=== PATIENT | male | born 1985 | race Caucasian/White ===

== ENCOUNTER 2019-07-06 08:41 | Inpatient (IN) | payer MEDICAID ==
[~2019-07-06] VITALS: Ht 170.2 cm; Wt 98.3 kg
[2019-07-06] VITALS (7 sets, daily range): BP systolic 114–136; BP diastolic 72–84; BMI 35.9
--- NOTE | ~2019-07-06 | HEMODYNAMI ---
PATIENT:BROOKE KELLEY MEDICAL RECORD: [id number] : 83 LOCATION:[address] ADMISSION DATE: 07/06/19 Generatedon:07/19/20199:14 Patient name: BROOKE KELLEY Patient #: [id number] SSN: : 1985 Date of study: 07/19/2019 Page: Of Hemodynamic Procedure Report Patient Data Patient Demographics Procedure consent was obtained First Name: BROOKE Gender: Male Last Name: ALLIE : 1985 Patient #: [id number] Age: 34 year(s) Race: Unknown Additional ID: [id number] Contact details Address: [address] [place] [address] AVE State: [place] City: [place] Zip code: [address] Past Medical History Allergies: No known allergies Admission Admission Data Admission Date: 07/06/2019 Admission Time: 12:17 Room #: 2133 Procedure Procedure Types Cath Procedure Peripheral Cath Diagnostic Procedure Abscess Abscessogram Procedure Description Procedure Date Procedure Date: 07/19/2019 Procedure Start Time: 9:09 Procedure Staff Name Function Cheryl Ace MD Performing Physician Patricia Self RN Nurse Osmani Camacho RT Scrub KATHRYN CEVALLOS RT Monitor Procedure Data Cath Procedure Fluoroscopy Diagnostic fluoroscopy Total fluoroscopy Time: time: 0.08 min 0.08 min Contrast Material Contrast Material Type Amount (ml) Isovue 300 8 Hemodynamics Rest Pre Cath Intra NCS Post Cath Procedure Log Time Note 8:47:11 Osmani Camacho RT (R) (CV) sent for patient. Start room use. 8:47:12 Time tracking: Regular hours (M-F 7:00 - 5:00) 8:47:18 Patient received from Med II to IR Alert and oriented. Tansferred to table in Supine position. 8:47:19 Signed procedure consent form obtained from patient. 8:47:20 Warm blankets applied, and yenny hugger turned on for patient comfort. 8:47:21 Correct patient and procedure confirmed by team. 8:49:06 8:49:14 H&P Date Dictated: 07/19/2019 Within 30 days and on chart.. 8:49:16 Pre-procedure instructions explained to patient. 8:49:16 Pre-op teaching completed and patient verbalized understanding. 8:49:27 Patient allergic to No known allergies 8:49:29 Is the patient allergic to Iodine/contrast media? No. 8:50:08 Patient diabetic? No. 8:50:10 8:52:19 Left abdomen area was prepped with chlora-prep and draped in sterile fashion 9:04:51 Physician arrived 9:07:55 --------ALL STOP TIME OUT------ 9:08:03 Left abdomen site verified by team. 9:08:19 Use device set IR Diagnostic 9:08:21 Bag Decanter (2002S) opened to sterile field. 9:08:21 Sterile Angiographic Pack opened to sterile field. 9:08:22 Tegaderm 4 x 4 ([id number]) opened to sterile field. 9:09:24 Procedure started. 9:09:25 Full Disclosure recording started 9:12:58 Procedure ended.(Physican Out) 9:13:07 Fluoroscopy time 00.08 minutes. 9:13:11 Dose Area Product 26 mGy/cm. 9:13:15 Contrast amount:Isovue 300 8ml. 9:13:28 Post-op/insertion site Left Abdominal area dressed using a statlock, 4 x 4 and Tegaderm. 9:13:44 Post procedure instruction explained to patient.Patient verbalizes understanding. 9:13:46 Procedure and supply charges have been captured, reviewed, submitted and are correct. 9:14:19 Patient transfered to [facility] II with Bed. 9:14:22 End room use (Document Last) Device Usage Item Name Manufacture Quantity Catalog Hospital Part Current Minimal Lot# / Number Charge Number Stock Stock Serial# Code Bag Decanter Microtek 1 [id number] () [employer] Sterile Cardinal 1 [id number] Angiographic Health Pack Tegaderm 4 x 3M 1 [id number] 4 ([id number]) Signature Audit [place] Stage Time Signature Unsigned Intra-Procedure 07/19/2019 KATHRNY CEVALLOS RT 9:14:38 AM (R) [facility] [address] [place] [address]
[2019-07-06 09:24] LABS: CALC OSMOLALITY 264 mosm/kg (275-300); CALCIUM 9.5 mg/dL (8.5-10.1); CARBON DIOXIDE 24.8 mmol/L (21.0-32.0); CHLORIDE - SERUM 99 mmol/L (98-107); CREATININE - SERUM 1.1 mg/dL (0.6-1.3); GLUCOSE 99 mg/dL (74-106); POTASSIUM - SERUM 4.3 mmol/L (3.5-5.1); SODIUM 133 mmol/L (136-145); UREA NITROGEN 11 mg/dL (7-18); eGFR NON AFRICAN AMERICAN 81 mL/min (90-120)
[2019-07-06 09:33] LABS: ALBUMIN 3.6 g/dL (3.4-5.0); ALKALINE PHOSPHATASE 71 U/L (46-116); ALT (SGPT) 29 U/L (10-68); AMYLASE - SERUM 26 U/L (25-115); BILIRUBIN - TOTAL 0.76 mg/dL (0.2-1.3); LIPASE 84 U/L (73-393); PROTEIN - SERUM 8.3 g/dL (6.4-8.2)
[2019-07-06 09:34] LABS: TROPONIN-I < 0.017 ng/mL (0.000-0.060)
[2019-07-06 09:35] LABS: BASOPHILS 0.2 % (0-2); EOSINOPHILS 2.8 % (0-7); HEMATOCRIT 46.2 % (42.0-54.0); HEMOGLOBIN 15.8 g/dL (13.5-17.5); IMMATURE GRANULOCYTES 0.3 % (0-5); LYMPHOCYTES 9.6 % (15-50); MCH 30.9 pg (26.0-34.0); MCHC 34.2 g/dL (31.0-37.0); MCV 90.4 fL (80.0-100.0); MEAN PLATELET VOLUME 9.3 fL (7.4-10.4); MONOCYTES 7.4 % (2-11); NEUTROPHILS 79.7 % (40-80); PLATELET COUNT 279 10x3/uL (130-400); RBC 5.11 10x6/uL (4.20-6.10); RDW 12.3 % (11.5-14.5); WBC 18.1 10x3/uL (4.8-10.8)
[2019-07-06 09:57] LABS: APPEARANCE CLEAR (CLEAR); BILIRUBIN NEGATIVE (NEGATIVE); COLOR DK YELLOW (YELLOW); GLUCOSE NEGATIVE (NEGATIVE); KETONE LARGE mg/dL (NEGATIVE); NITRITE NEGATIVE (NEGATIVE); PROTEIN 1+ mg/dL (NEGATIVE); RED CELLS - URINE OCC /hpf (0-5); SPECIFIC GRAVITY 1.025 (1.005-1.020); UROBILINOGEN NORMAL (NORMAL); WHITE CELLS - URINE RARE /hpf (NEGATIVE)
[2019-07-06 09:58] LABS: BACTERIA FEW /hpf (NEGATIVE); EPITHELIAL CELLS OCC /hpf (0-5); MUCUS >1+ /lpf (NONE SEEN)
--- NOTE | 2019-07-06 11:09 | NUR ---
TO CT VIA STRETCHER WITH CANTEEN OPERATOR
--- NOTE | 2019-07-06 13:52 | NUR ---
FLAGYL INFUSION COMPLETE AT THIS TIME, LEVAQUIN INFUSING ON TRANSFER.
--- NOTE | 2019-07-06 14:00 | NUR ---
ARRIVE TO ROOM VIA WHEELCHAIR FROM ER ACCOMPANIED BY STAFF AND SPOUSE. AMBULATES TO BED. RT AC IV INFUSING ORDERED. SKIN POOR HYGIENE. REFUSE SHOWER. CONTINUE PLAN OF CARE AND SAFETY PRECAUTIONS. CONTINUE ADMISSION PROCESS.
--- NOTE | 2019-07-06 15:56 | MORECARE ---
CASE MANAGEMENT DISCHARGE SUMMARY PATIENT: BROOKE KELLEY UNIT: [id number] ADM DATE: 07/06/19 AGE: 34 : 84 SEX: M ROOM/BED: D.7993 AUTHOR: FELIPEDOC PHYSICIAN: REFERRING PHYSICIAN: ERICKA MARTIN MD DATE OF SERVICE: 07/06/19 Discharge Plan Patient Name: BROOKE KELLEY Facility: [facility]:[place] : 1985 Planned Disposition: Home Anticipated Discharge Date: 07/08/19 Discharge Date: Expected LOS: 2 Initial Reviewer: [email or web address] Initial Review Date: 07/06/2019 Generated: 07/06/19 4:56 pm DCP- Discharge Planning Updated by [email or web address]: Bethanie Carroll on 07/06/19 2:[address] DC PLAN: Return home with and room-mate independently. ANTICIPATED DC NEEDS: Denied known dc needs at time of admission assessment. CM met with patient and his to complete initial dc planning assessment. CM educated patient on the CM role and verbal consent given by patient to complete assessment. CM verified patient's address, phone number, and emergency contact phone numbers. Patient lives at home with his and a roommate. He reports he is independent in his care at home. At discharge patient plans to return home independently and feels this is a safe discharge. CM discussed availability of home health, rehab services, and medical equipment. Patient denied known discharge needs at this time. Transportation provider at discharge will be his CM will continue to follow and will assist as needed with dc plans/needs. DCPIA - Discharge Planning Initial Assessment Updated by [email or web address]: Bethanie Carroll on 07/06/19 3:48 pm * Is the patient Alert and Oriented? Yes * How many steps to enter\exit or inside your home? * PCP No PCP * Pharmacy [facility] * Preadmission Environment Home with Family * ADLs Independent * Equipment None * List name and contact numbers for known caregivers / representatives who currently or will assist patient after discharge: Elyse - spouse - no phone. Elias Carroll - room mate - [phone] * Verbal permission to speak to the caregivers and representatives has been obtained from the patient. Yes * Community resources currently utilized None * Additional services required to return to the preadmission environment? No * Can the patient safely return to the preadmission environment? Yes * Has this patient been hospitalized within the prior 30 days at any hospital? No Patient Name: BROOKE KELLEY Page [id number] at 1556 All edits/amendments must be made on the electronic document DICTATION DATE: 07/06/191555 JOURNEYMAN PRESSMAN: EVERTON 07/06/191555 RPT#: [id number] DC DATE: STATUS: ADM IN [facility] [address] [place] [address] END OF REPORT
--- NOTE | 2019-07-06 19:23 | NUR ---
REPORT RECEIVED, WILL CONTINUE POC. PATIENT IS AAOX4, UP AD LOUISE. LYING SUPINE IN BED. NO S/S OF DISTRESS OBSERVED, RR EVEN AND UNLABORED ON ROOM AIR. PATIENT SAID HE ASKED FOR PAIN MEDS ABOUT AN HOUR AGO. INFORMED PATIENT THAT IF HE CAN HAVE ANYTHING I WOULD BRING IT SHORTLY. PATIENT DENIES FURTHER NEEDS AT THIS TIME. CL IN REACH, BED LOCKED AND LOWERED, WILL CTM.
[2019-07-07 00:20] VITALS: BP 103/57
--- NOTE | 2019-07-07 03:40 | NUR ---
PT C/O ABDOMINAL PAIN. PRN PERCOCET ADMINISTERED PER ORDERS.
[2019-07-07 04:47] VITALS: BP 112/61
[2019-07-07 06:53] LABS: BASOPHILS 0.2 % (0-2); EOSINOPHILS 6.1 % (0-7); HEMATOCRIT 39.7 % (42.0-54.0); HEMOGLOBIN 13.4 g/dL (13.5-17.5); IMMATURE GRANULOCYTES 0.3 % (0-5); LYMPHOCYTES 10.8 % (15-50); MCH 30.5 pg (26.0-34.0); MCHC 33.8 g/dL (31.0-37.0); MCV 90.4 fL (80.0-100.0); MEAN PLATELET VOLUME 9.4 fL (7.4-10.4); MONOCYTES 7.2 % (2-11); NEUTROPHILS 75.4 % (40-80); PLATELET COUNT 250 10x3/uL (130-400); RBC 4.39 10x6/uL (4.20-6.10); RDW 12.2 % (11.5-14.5)
[2019-07-07 07:01] LABS: WBC 11.1 10x3/uL (4.8-10.8)
[2019-07-07 07:05] LABS: CALC OSMOLALITY 267 mosm/kg (275-300); CHLORIDE - SERUM 103 mmol/L (98-107); CREATININE - SERUM 0.9 mg/dL (0.6-1.3); GLUCOSE 91 mg/dL (74-106); SODIUM 135 mmol/L (136-145); eGFR NON AFRICAN AMERICAN > 90 mL/min (90-120)
[2019-07-07 07:09] LABS: UREA NITROGEN 8 mg/dL (7-18)
--- NOTE | 2019-07-07 07:22 | NUR ---
REPORT RECEIVED. WILL CONTINUE WITH POC. PT CURRENTLY LYING ON RIGHT SIDE RESTING. CALL LIGHT W/I REACH. PT IS AAO AND UP AD LOUISE. RR EVEN AND UNLABORED ON RA. NS INFUSING @100ML/HR VIA R.AC PIV. NO S/S OF DISTRESS NOTED. PT DENIES ANY NEEDS. WILL CTM.
[2019-07-07 08:33] LABS: UDS - AMPHET NEGATIVE QUAL (NEGATIVE); UDS - BARB NEGATIVE QUAL (NEGATIVE); UDS - BENZO POSITIVE QUAL (NEGATIVE); UDS - COCAINE NEGATIVE QUAL (NEGATIVE); UDS - OPIATE POSITIVE QUAL (NEGATIVE); UDS - PCP NEGATIVE QUAL (NEGATIVE); UDS - THC POSITIVE QUAL (NEGATIVE)
[2019-07-07 09:34] VITALS: BP 123/68
[2019-07-07 12:43] VITALS: BP 119/72
[2019-07-07 14:34] VITALS: BMI 35.8
--- NOTE | 2019-07-07 14:48 | NUR ---
I have reviewed this patient and I concur with the Shift Assessment completed by the Licensed Practical Nurse today this shift.
[2019-07-07 17:16] VITALS: BP 124/78
--- NOTE | 2019-07-07 19:36 | NUR ---
REPORT RECEIVED, WILL CONTINUE POC. PATIENT IS AAOX4, LYING IN SUPINE POSITION. AT BEDSIDE. NO S/S OF DISTRESS OBSERVED, RR EVEN AND UNLABORED ON ROOM AIR. PATIENT REQUESTED TO HAVE A SHOWER LATER. PATIENT DENIES NEEDS AT THIS TIME. CL IN REACH, BED LOCKED AND LOWERED. WILL CTM.
[2019-07-07 20:00] VITALS: BP 118/76
--- NOTE | 2019-07-07 20:31 | NUR ---
STRONG CIGARETTE SMOKE SMELL COMING FROM ROOM. PATIENT IS IN THE SHOWER, TOWEL PUSHED UNDER DOOR, SITTING ON BED. INFORMED THAT PATIENT CAN'T BE SMOKING IN ROOM THAT IT'S A HAZARD SHE SAID SHE HAS NO IDEA IF HE IS OR NOT. SECURITY CALLED TO COME SPEAK WITH PATIENT.
[2019-07-08] VITALS (7 sets, daily range): BP systolic 100–124; BP diastolic 54–80
--- NOTE | 2019-07-08 02:31 | NUR ---
PATIENT GOT IV TUBING CAUGHT IN BED RAIL AND PULLED OUT PIV TO RT AC, CATH TIP INTACT. IV RESITED TO RT UPPER ARM WITH 20G X1 ATTEMPT. BLOOD RETURN GOOD, FLUSHED EASILY. PATIENT TOLERATED WELL. PATIENT C/O ABDMONIAL PAIN PRIOR TO IV RESITING. PRN PERCOCET ADMINISTERED PER ORDERS.
--- NOTE | 2019-07-08 07:08 | NUR ---
REPORT RECEIVED. WILL CONTINUE WITH POC. PT CURRENTLY LYING ON RIGHT SIDE ASLEEP. IS IN BED WITH PT. ROOM HAS STRONG ODOR OF SMOKE. RR EVEN AND UNLABORED ON RA. NS INFUSING @100ML/HR VIA R.UPPER ARM PIV. NO S/S OF DISTRESS NOTED. WILL CTM.
--- NOTE | 2019-07-08 08:41 | NUR ---
PT DEMANDING PAIN MEDICATION UPON ENTERING THE ROOM AND BEING RUDE/DEGRADING TO CLAIM TECHNICIAN. CURRENTLY IN THE ROOM REQUESTING BREAKFAST TRAY. INSTRUCTED PATIENT AND THAT I WOULD ASK PROJECT MANAGEMENT PROFESSOR. WILL CTM.
[2019-07-08 11:53] LABS: HEMATOCRIT 39.7 % (42.0-54.0); HEMOGLOBIN 13.1 g/dL (13.5-17.5); MCH 30.2 pg (26.0-34.0); MCV 91.5 fL (80.0-100.0); PLATELET COUNT 264 10x3/uL (130-400); RBC 4.34 10x6/uL (4.20-6.10); RDW 12.3 % (11.5-14.5); WBC 9.7 10x3/uL (4.8-10.8)
[2019-07-08 11:57] LABS: BASOPHILS 0.2 % (0-2); EOSINOPHILS 8.5 % (0-7); IMMATURE GRANULOCYTES 0.2 % (0-5); LYMPHOCYTES 11.9 % (15-50); MONOCYTES 8.5 % (2-11); NEUTROPHILS 70.7 % (40-80)
--- NOTE | 2019-07-08 15:49 | NUR ---
I have reviewed this patient and I concur with the Shift Assessment completed by the Licensed Practical Nurse today this shift.
--- NOTE | 2019-07-08 19:10 | NUR ---
BEDSIDE REPORT RECEIVED FROM DAY SHIFT, PT CARE ASSUMED. INTRODUCED SELF AND WROTE NAME ON BOARD. PT SITTING UP IN BED, AAOX4, REQUESTING TO PIV TO RIGHT AC RESITED, C/O TENDERNESS, FREE OF S/S OF INFILTRATION AND INFLAMMATION. C/O LOWER ABD PAIN OF 8, ON A SCALE OF 0-10. REQUESTING LINEN CHANGE, DENIES ANY OTHER NEEDS AT THIS TIME. SISTER AND AT BEDSIDE. BED IN LOWEST POSITION, SR X1, CALL LIGHT WITHIN REACH. WILL CONTINUE TO MONITOR.
[2019-07-09 04:00] VITALS: BP 124/78
--- NOTE | 2019-07-09 05:49 | NUR ---
AM MEDS GIVEN, PER ORDER. REQUESTING LEMON NUNAKAUYARMIUT SODA, ORANGE SHERBERT, AND VANILLA ICE CREAM. PT LEAVING FLOOR WITH TO SMOKE.
[2019-07-09 06:16] LABS: BASOPHILS 0.4 % (0-2); EOSINOPHILS 7.4 % (0-7); HEMATOCRIT 42.5 % (42.0-54.0); IMMATURE GRANULOCYTES 0.2 % (0-5); MCH 29.9 pg (26.0-34.0); MCHC 32.9 g/dL (31.0-37.0); MCV 90.8 fL (80.0-100.0); MEAN PLATELET VOLUME 9.2 fL (7.4-10.4); MONOCYTES 8.4 % (2-11); NEUTROPHILS 74.6 % (40-80); PLATELET COUNT 287 10x3/uL (130-400); RBC 4.68 10x6/uL (4.20-6.10); RDW 12.6 % (11.5-14.5); WBC 11.1 10x3/uL (4.8-10.8)
[2019-07-09 06:38] LABS: ALBUMIN 2.6 g/dL (3.4-5.0); ALKALINE PHOSPHATASE 61 U/L (46-116); ALT (SGPT) 15 U/L (10-68); BILIRUBIN - TOTAL 0.38 mg/dL (0.2-1.3); CALC OSMOLALITY 277 mosm/kg (275-300); CARBON DIOXIDE 24.8 mmol/L (21.0-32.0); CHLORIDE - SERUM 105 mmol/L (98-107); CREATININE - SERUM 0.9 mg/dL (0.6-1.3); GLUCOSE 122 mg/dL (74-106); POTASSIUM - SERUM 3.6 mmol/L (3.5-5.1); PROTEIN - SERUM 6.7 g/dL (6.4-8.2); SODIUM 140 mmol/L (136-145); UREA NITROGEN 6 mg/dL (7-18); eGFR NON AFRICAN AMERICAN > 90 mL/min (90-120)
[2019-07-09 09:48] VITALS: BP 126/56
--- NOTE | 2019-07-09 12:01 | NUR ---
UP AMBULATING HALLWAY. GAIT STEADY.
--- NOTE | 2019-07-09 12:50 | NUR ---
Nutrition Follow-up: Diet advanced; tolerating. Abd pain improving. Diet: Regular PO intake: 69% avg x 4 meals Wt: 229# (stable) Last BM: 07/09 Labs noted: Glu 122, Alb 2.6 Meds noted: Miralax, Carafate, NS @ 100 -Continue current diet as tolerated. -RD following.
--- NOTE | 2019-07-09 19:10 | NUR ---
BEDSIDE REPORT RECEIVED, PT CARE ASSUMED. WROTE NAME ON BOARD. PT LYING IN BED WITH EYES CLOSED, RR EVEN AND NONLABORED, NO S/S OF DISTRESS, AROUSES EASILY TO VOICE. REQUESTING SODA, PROVIDED. DENIES ANY OTHER NEEDS AT THIS TIME. BED IN LOWEST POSITION, SR X1, CALL LIGHT WITHIN REACH. WILL CONTINUE TO MONITOR.
[2019-07-09 20:00] VITALS: BP 121/77
[2019-07-10] VITALS: BP 124/75
[2019-07-10 04:00] VITALS: BP 130/84
[2019-07-10 07:04] LABS: BASOPHILS 0.2 % (0-2); EOSINOPHILS 5.8 % (0-7); HEMOGLOBIN 13.1 g/dL (13.5-17.5); IMMATURE GRANULOCYTES 0.3 % (0-5); LYMPHOCYTES 10.4 % (15-50); MCH 30.5 pg (26.0-34.0); MCHC 33.6 g/dL (31.0-37.0); MCV 90.7 fL (80.0-100.0); MEAN PLATELET VOLUME 9.4 fL (7.4-10.4); MONOCYTES 8.5 % (2-11); NEUTROPHILS 74.8 % (40-80); PLATELET COUNT 328 10x3/uL (130-400); RDW 12.5 % (11.5-14.5); WBC 13.2 10x3/uL (4.8-10.8)
[2019-07-10 07:10] LABS: ALBUMIN 2.5 g/dL (3.4-5.0); ALKALINE PHOSPHATASE 61 U/L (46-116); ALT (SGPT) 14 U/L (10-68); BILIRUBIN - TOTAL 0.31 mg/dL (0.2-1.3); CALC OSMOLALITY 275 mosm/kg (275-300); CALCIUM 8.8 mg/dL (8.5-10.1); CARBON DIOXIDE 27.3 mmol/L (21.0-32.0); CHLORIDE - SERUM 104 mmol/L (98-107); CREATININE - SERUM 0.8 mg/dL (0.6-1.3); GLUCOSE 103 mg/dL (74-106); POTASSIUM - SERUM 3.7 mmol/L (3.5-5.1); PROTEIN - SERUM 6.5 g/dL (6.4-8.2); SODIUM 139 mmol/L (136-145); UREA NITROGEN 7 mg/dL (7-18); eGFR NON AFRICAN AMERICAN > 90 mL/min (90-120)
[2019-07-10 08:50] VITALS: BP 115/74
[2019-07-10 11:59] VITALS: BP 133/86
--- NOTE | 2019-07-10 13:32 | NUR ---
ASSESSNEBT DONE . DENIES NEEDS
--- NOTE | 2019-07-10 14:16 | NUR ---
I have reviewed this patient and I concur with the Shift Assessment completed by the Licensed Practical Nurse today this shift.
[2019-07-10 14:45] VITALS: Ht 170.2 cm; Wt 98.3 kg
[2019-07-10 15:46] LABS: INR 1.27 (0.85-1.17); PROTIME 15.4 SECONDS (11.6-15.0)
[2019-07-10 15:47] LABS: APTT 42.4 SECONDS (22.8-39.4)
[2019-07-10 20:00] VITALS: BP 130/86
--- NOTE | 2019-07-10 22:33 | NUR ---
INITIAL ROUNDS COMPLETED AT 1915 HRS. PT RESTING WITH EYES CLOSED. RESP EVEN AND REGULAR. ASSESSMENT COMPLETED AT 200 HRS. IV TO RFA WITH NS AT 100CC/HR. IV PATENT. LUNGS ESSENTIALLY CTA. ABD TENDER WITH HYPOACTIVE BS NOTED. PT NPOX MEDS SITH SIPS OF WATER AND ICE CHIPS. STATES UNDERSTANDING. TEMP 101.5. TYLENOL 650MG PO GIVE A 2019 HRS. FAMILY AT BEDSIDE AT TAHT TIME. PM MEDS GIVEN. PT UP TO SHOWER AT 2130 HRS. PT CURRENTLY RESTING WITH EYES CLOSED. RESP EVEN AND REGULAR. SR UP X2, CALL LIGHT WITHIN REACH.
[2019-07-11] VITALS: BP 119/73
--- NOTE | 2019-07-11 00:50 | NUR ---
PT RESTING WITH EYES CLOSED. RESP EVEN AND REGULAR. SR UP X1, CALL LIGHT WITHIN REACH.
--- NOTE | 2019-07-11 01:30 | NUR ---
NIECY OLIVER WAS ON LUNCH, PT COMPLAINS OF PAIN, GAVE PEROCET ORDER WITH A SIP OF WATER
--- NOTE | 2019-07-11 02:31 | NUR ---
PT RESTING WITH EYES CLOSED. RESP EVEN AND REGULAR. SR UP X2, CALL LIGHT WITHIN REACH.
[2019-07-11 04:00] VITALS: BP 119/60
--- NOTE | 2019-07-11 04:24 | NUR ---
PT REQUESTING PAIN MEDS. INFORMED PT PAIN MED NOT DUE AGAIN UNTIL 0530 HRS. INFORMED PT RECEIVED PRECOCET AT O130 BY Michael CAMACHO LPN. PT THEN STATED TAHT THIS NURSE IS A LIAR HE HS NOT RECIEVED ANY PAIN MEDS SINCE BEFORE HE WENT OUTSIDE. ATTEMPTED TO SHOW PT ON SEP WHEN MED GIVEN. PT THEN STATED HE DOES NOT WANT THIS NURSE NEXT SHIFT.
--- NOTE | 2019-07-11 05:30 | NUR ---
PT APOLOGIZED FOR BEING WRONG ABOUT LAST PAIN MED ADMINISTRATION. STATES OK FOR THIS NURSE TO BE HIS NURSE NEXT SHIFT.
[2019-07-11 05:58] LABS: BASOPHILS 0.1 % (0-2); EOSINOPHILS 5.3 % (0-7); HEMATOCRIT 37.9 % (42.0-54.0); HEMOGLOBIN 12.8 g/dL (13.5-17.5); IMMATURE GRANULOCYTES 0.4 % (0-5); LYMPHOCYTES 8.2 % (15-50); MCH 30.4 pg (26.0-34.0); MCHC 33.8 g/dL (31.0-37.0); MONOCYTES 7.9 % (2-11); NEUTROPHILS 78.1 % (40-80); PLATELET COUNT 358 10x3/uL (130-400); RBC 4.21 10x6/uL (4.20-6.10); RDW 12.5 % (11.5-14.5); WBC 15.3 10x3/uL (4.8-10.8)
--- NOTE | 2019-07-11 06:02 | NUR ---
VSS THROUGHOUT NIGHT. PT STATES PERCOCET MAKES PAIN TOLERABLE. NEEDS MET; WILL CONTINUE TO MONITOR.
[2019-07-11 06:20] LABS: ALBUMIN 2.5 g/dL (3.4-5.0); ALKALINE PHOSPHATASE 59 U/L (46-116); ALT (SGPT) 16 U/L (10-68); BILIRUBIN - TOTAL 0.42 mg/dL (0.2-1.3); CALC OSMOLALITY 273 mosm/kg (275-300); CALCIUM 8.9 mg/dL (8.5-10.1); CHLORIDE - SERUM 103 mmol/L (98-107); CREATININE - SERUM 0.9 mg/dL (0.6-1.3); GLUCOSE 96 mg/dL (74-106); POTASSIUM - SERUM 3.6 mmol/L (3.5-5.1); PROTEIN - SERUM 6.6 g/dL (6.4-8.2); SODIUM 138 mmol/L (136-145); UREA NITROGEN 7 mg/dL (7-18); eGFR NON AFRICAN AMERICAN > 90 mL/min (90-120)
--- NOTE | 2019-07-11 07:00 | NUR ---
RECEIVED REPORT. ASSUMED CARE OF PATIENT. CALL LIGHT WITHIN REACH. PATIENT RESTING IN BED WITH EYES CLOSED, FEMALE IN BED WITH PATIENT ALSO WITH EYES CLOSED. RESP EVEN AND UNLABORED. NO DISTRESS. IV FLUIDS INFUSING ORDERED.
[2019-07-11 08:48] VITALS: BP 110/66
--- NOTE | 2019-07-11 09:52 | NUR ---
MEDICATED FOR PAIN AT THIS TIME. NO DISTRESS
[2019-07-11 13:08] VITALS: BP 118/45
--- NOTE | 2019-07-11 14:01 | NUR ---
PATIENT GAVE THIS MANAGER INTELLIGENCE PERMISSION TO SPEAK WITH HIS SISTER REGARDING HIS CONDITION HE DOES NOT UNDERSTAND WHAT THE PROVIDERS HAVE PLANNED FOR HIM.
--- NOTE | 2019-07-11 14:31 | NUR ---
MEDICATED FOR PAIN AT THIS TIME. NO DISTRESS
--- NOTE | 2019-07-11 15:07 | NUR ---
PATIENT RETURNED TO ROOM AT THIS TIME, PATIENT AMBULATING OFF UNIT WITH HIS . NO DISTRESS.
--- NOTE | 2019-07-11 18:34 | NUR ---
PATIENT MEDICATED FOR PAIN AT THIS TIME. NO DISTRESS.
--- NOTE | 2019-07-11 19:26 | NUR ---
RECEIVED LAYING IN BED WITH EYES CLOSED. EASILY AROUSES WITH VERBAL STIMULI. SPOUSE AT BEDSIDE. ORIENTED X4. UP AD LOUISE. IV TO RIGHT FA WITH NS AT 100CC/HR AND ABT INFUSING. REMAINS NPO. DENIES ANY NEEDS AT THIS TIME.
[2019-07-11 20:40] VITALS: BP 124/60
[2019-07-12 00:30] VITALS: BP 120/71
[2019-07-12 04:36] VITALS: BP 104/51
[2019-07-12 06:27] LABS: BASOPHILS 0.2 % (0-2); EOSINOPHILS 3.9 % (0-7); HEMATOCRIT 39.2 % (42.0-54.0); HEMOGLOBIN 12.9 g/dL (13.5-17.5); IMMATURE GRANULOCYTES 0.4 % (0-5); LYMPHOCYTES 11.9 % (15-50); MCH 29.7 pg (26.0-34.0); MCHC 32.9 g/dL (31.0-37.0); MCV 90.3 fL (80.0-100.0); MEAN PLATELET VOLUME 9.1 fL (7.4-10.4); MONOCYTES 8.5 % (2-11); NEUTROPHILS 75.1 % (40-80); PLATELET COUNT 383 10x3/uL (130-400); RBC 4.34 10x6/uL (4.20-6.10); RDW 12.5 % (11.5-14.5); WBC 14.2 10x3/uL (4.8-10.8)
[2019-07-12 06:54] LABS: ALBUMIN 2.5 g/dL (3.4-5.0); ALKALINE PHOSPHATASE 58 U/L (46-116); ALT (SGPT) 19 U/L (10-68); BILIRUBIN - TOTAL 0.38 mg/dL (0.2-1.3); CALC OSMOLALITY 277 mosm/kg (275-300); CALCIUM 8.9 mg/dL (8.5-10.1); CARBON DIOXIDE 25.7 mmol/L (21.0-32.0); CHLORIDE - SERUM 103 mmol/L (98-107); CREATININE - SERUM 0.9 mg/dL (0.6-1.3); GLUCOSE 77 mg/dL (74-106); POTASSIUM - SERUM 3.8 mmol/L (3.5-5.1); PROTEIN - SERUM 6.7 g/dL (6.4-8.2); SODIUM 141 mmol/L (136-145); UREA NITROGEN 8 mg/dL (7-18); eGFR NON AFRICAN AMERICAN > 90 mL/min (90-120)
--- NOTE | 2019-07-12 07:26 | NUR ---
REPORT RECEIVED FROM SHANK RANDER AND PATIENT CARE ASSUMED. PATIENT LAYHING IN BED ON RT SIDE WITH EYES CLOSED AND BREATHING EVENLY. IS ASLEEP IN BED WITH PATIENT. WILL CONTINUE WITH PLAN OF CARE. SR UP X 2 BED IN LOW POSITION AND CALL LIGHT IN REACH.
[2019-07-12 09:59] VITALS: BP 108/49
--- NOTE | 2019-07-12 10:00 | NUR ---
BRANDEN, RN WITH VASCULAR ACCESS INQIURING ABOUT PICC LINE PLACEMENT. SHE STATES NO ORDER IN COMPUTER AND REQUESTED THAT THIS NURSE FOUND OUT PLACEMENT NEEDED OR NOT. PER DR DENNIS NOTE FROM 07/11/19, PATIENT TO HAVE PICC LINE PLACMENT TODAY FOR ABX AND TPN. CALLED DR DENNIS AND CONFIRMED AND PUT IN V/O FOR PICC LINE PLACEMENT.
--- NOTE | 2019-07-12 12:30 | NUR ---
ATTEMPTED TO CALL BENITO OTERO . LEFT VOICE MAIL TO CONFIRM SHE AHS SEEN ORDER. AWAITING CALL BACK.
[2019-07-12 12:32] VITALS: BP 106/62
--- NOTE | 2019-07-12 12:35 | NUR ---
PATIENT IS STABLE AND VSS. PATIENT DENIES ANY NEEDS OR PAIN. WILL CONTINUE TO MONITOR. AT BS. SR UP X 2 BED IN LOW POSITION AND CALL LIGHT IN REACH.
[2019-07-12 14:14] LABS: MAGNESIUM - SERUM 1.7 mg/dL (1.8-2.4); PHOSPHOROUS 4.2 mg/dL (2.5-4.9)
--- NOTE | 2019-07-12 14:28 | NUR ---
Nutrition consult: Recieved consult to start TPN Chart reviewed TPN ordered @ 40 ml/hr with 20% 250 ml intralipids q 48 hours RDN following.
--- NOTE | 2019-07-12 14:48 | NUR ---
PICC LINE PLACED TO LEFT UPPER ARM. PATIENT TOLERATED WELL. PATIENT IS STABLE AND VSS. PATIENT DENIES ANY PAIN OR NEEDS. AND CHILDREN AT BS. WILL CONTINUE TO MONITOR. SR UP X 2 BED IN LOW POSITION AND CALL LIGHT IN REACH.
--- NOTE | 2019-07-12 17:12 | NUR ---
PATIENT LAYING IN BED ON BACK WITH EYES CLOSED AND BREATHING EVENLY. PATIENT IS STABLE AND VSS. IN ROOM. WILL CONTINUE TO MONITOR. SR UP X 2 BED IN LOW POSITION AND CALL LIGHT IN REACH.
[2019-07-12 18:26] VITALS: BP 107/64
--- NOTE | 2019-07-12 19:36 | NUR ---
EVENING ROUNDS COMPLETE. PT LAYING IN BED, CHILDREN AT BEDSIDE. NO SIGNS OF DISTRESS. PT DENIES ANY PAIN OR NEEDS AT THIS TIME. CL IN REACH, BED IN LOWEST POSITION.
[2019-07-12 20:37] VITALS: BP 123/66
[2019-07-13 00:30] VITALS: BP 113/67
[2019-07-13 04:32] VITALS: BP 105/63
[2019-07-13 06:20] LABS: BASOPHILS 0.1 % (0-2); EOSINOPHILS 3.8 % (0-7); HEMATOCRIT 41.3 % (42.0-54.0); HEMOGLOBIN 13.8 g/dL (13.5-17.5); IMMATURE GRANULOCYTES 0.4 % (0-5); MCH 29.8 pg (26.0-34.0); MCHC 33.4 g/dL (31.0-37.0); MCV 89.2 fL (80.0-100.0); MEAN PLATELET VOLUME 8.9 fL (7.4-10.4); MONOCYTES 6.5 % (2-11); NEUTROPHILS 77.2 % (40-80); PLATELET COUNT 389 10x3/uL (130-400); RBC 4.63 10x6/uL (4.20-6.10); RDW 12.6 % (11.5-14.5); WBC 14.6 10x3/uL (4.8-10.8)
[2019-07-13 06:47] LABS: ALBUMIN 2.7 g/dL (3.4-5.0); ALKALINE PHOSPHATASE 79 U/L (46-116); ALT (SGPT) 17 U/L (10-68); BILIRUBIN - TOTAL 0.28 mg/dL (0.2-1.3); CALC OSMOLALITY 281 mosm/kg (275-300); CALCIUM 9.1 mg/dL (8.5-10.1); CARBON DIOXIDE 29.5 mmol/L (21.0-32.0); CHLORIDE - SERUM 103 mmol/L (98-107); PHOSPHOROUS 3.6 mg/dL (2.5-4.9); POTASSIUM - SERUM 3.9 mmol/L (3.5-5.1); SODIUM 141 mmol/L (136-145); UREA NITROGEN 9 mg/dL (7-18); eGFR NON AFRICAN AMERICAN 90 mL/min (90-120)
[2019-07-13 06:48] LABS: GLUCOSE 139 mg/dL (74-106)
--- NOTE | 2019-07-13 08:02 | NUR ---
Nutrition follow-up: Pts diet advanced to full liquids TPN infusing @ 40 ml/hr with 20% 250 ml intralipids q 48 hours Labs reviewed Wt: 223# Will continue current TPN regimen RDN following.
--- NOTE | 2019-07-13 08:12 | NUR ---
PT SITTING UP IN BED. RR EVEN AND UNLABORED. FAMILY @ BEDSIDE. AXO. DENIES NEEDS OR PAIN AT THIS TIME. BED IN LOWEST POSITION. CALL LIGHT WITHIN REACH. WILL CONTINUE TO MONIITOR.
[2019-07-13 08:16] VITALS: BP 105/54
[2019-07-13 09:09] LABS: AEROBE ID Final report (())
--- NOTE | 2019-07-13 12:23 | NUR ---
PT UP TO SHOWER. IV AND PICC LINE COVERED. LINENS CHANGED.
--- NOTE | 2019-07-13 13:56 | NUR ---
I have reviewed this patient and I concur with the Shift Assessment completed by the Licensed Practical Nurse today this shift.
[2019-07-13 15:47] VITALS: BP 92/35
--- NOTE | 2019-07-13 19:10 | NUR ---
BEDSIDE REPORT RECEIVED FROM DAY SHIFT, PT CARE ASSUMED. WROTE NAME ON BOARD. PT LYING IN BED, AAOX4, VISITING WITH FAMILY AT BEDSIDE. DENIES ANY NEEDS AT THIS TIME. BED IN LOWEST POSITION, SR X1, CALL LIGHT WITHIN REACH. WILL CONTINUE TO MONITOR.
[2019-07-13 20:00] VITALS: BP 126/64
[2019-07-14] VITALS: BP 100/60
[2019-07-14 04:00] VITALS: BP 109/38
[2019-07-14 07:08] LABS: BASOPHILS 0.2 % (0-2); EOSINOPHILS 3.8 % (0-7); HEMATOCRIT 37.4 % (42.0-54.0); HEMOGLOBIN 12.7 g/dL (13.5-17.5); IMMATURE GRANULOCYTES 0.4 % (0-5); MCH 30.1 pg (26.0-34.0); MCV 88.6 fL (80.0-100.0); MEAN PLATELET VOLUME 8.8 fL (7.4-10.4); MONOCYTES 8.4 % (2-11); NEUTROPHILS 78.2 % (40-80); PLATELET COUNT 409 10x3/uL (130-400); RBC 4.22 10x6/uL (4.20-6.10); RDW 12.8 % (11.5-14.5); WBC 13.9 10x3/uL (4.8-10.8)
[2019-07-14 07:32] LABS: ALBUMIN 2.4 g/dL (3.4-5.0); ALKALINE PHOSPHATASE 72 U/L (46-116); ALT (SGPT) 18 U/L (10-68); BILIRUBIN - TOTAL 0.23 mg/dL (0.2-1.3); CALC OSMOLALITY 283 mosm/kg (275-300); CALCIUM 8.6 mg/dL (8.5-10.1); CARBON DIOXIDE 28.3 mmol/L (21.0-32.0); CHLORIDE - SERUM 106 mmol/L (98-107); CREATININE - SERUM 0.8 mg/dL (0.6-1.3); GLUCOSE 128 mg/dL (74-106); MAGNESIUM - SERUM 1.9 mg/dL (1.8-2.4); PHOSPHOROUS 3.3 mg/dL (2.5-4.9); POTASSIUM - SERUM 3.5 mmol/L (3.5-5.1); PROTEIN - SERUM 6.6 g/dL (6.4-8.2); SODIUM 142 mmol/L (136-145); UREA NITROGEN 10 mg/dL (7-18); eGFR NON AFRICAN AMERICAN > 90 mL/min (90-120)
--- NOTE | 2019-07-14 07:43 | NUR ---
REPORT RECEIVED. WILL CONTINUE WITH POC. PT CURRENTLY LYING SEMI FOWLERS. CALL LIGHT W/I REACH. IN BED WITH PT. RR EVEN AND UNLABORED ON RA. TPN INFUSING @40 AND NS INFUSING @60ML/HR VIA L.UPPER ARM PICC. NO S/S OF DISTRESS NOTED. WILL CTM.
--- NOTE | 2019-07-14 08:21 | NUR ---
Nutrition follow-up: Chart reviewed Labs reviewed Will continue current TPN regimen RDN following.
[2019-07-14 08:42] VITALS: BP 105/60
[2019-07-14 14:05] VITALS: BP 111/68
--- NOTE | 2019-07-14 16:07 | NUR ---
I have reviewed this patient and I concur with the Shift Assessment completed by the Licensed Practical Nurse today this shift.
[2019-07-14 16:20] VITALS: BP 122/77
--- NOTE | 2019-07-14 19:10 | NUR ---
BEDSIDE REPORT RECEIVED FROM DAY SHIFT, PT CARE ASSUMED. WROTE NAME ON BOARD. PT LYING IN BED WITH EYES CLOSED, RR EVEN AND NONLABORED, NO S/S OF DISTRESS, AROUSES EASILY TO VOICE, ORIENTED X4. DENIES ANY NEEDS AT THIS TIME. BED IN LOWEST POSITION, SR X1, CALL LIGHT AND URINAL WITHIN REACH. WILL CONTINUE TO MONITOR.
[2019-07-14 20:00] VITALS: BP 97/45
--- NOTE | 2019-07-14 20:44 | NUR ---
PT LYING IN BED, WATCHING TV. FSBS 113, C/O LOWER ABDOMINAL PAIN OF 7, ON A SCALE OF 0-10. PRN PERCOCET AND NIGHT TIME MEDS ADMINISTERED, PER ORDER. REQUESTING 2 SHERBERTS, PROVIDED. DENIES ANY OTHER NEEDS AT THIS TIME. AT BEDSIDE. BED IN LOWEST POSITION, SR X1, CALL LIGHT AND URINAL WITHIN REACH. WILL CONTINUE TO MONITOR.
[2019-07-15] VITALS: BP 98/55
[2019-07-15 04:00] VITALS: BP 102/52
[2019-07-15 06:12] LABS: BASOPHILS 0.2 % (0-2); EOSINOPHILS 7.5 % (0-7); HEMATOCRIT 37.5 % (42.0-54.0); HEMOGLOBIN 12.3 g/dL (13.5-17.5); IMMATURE GRANULOCYTES 0.5 % (0-5); LYMPHOCYTES 15.5 % (15-50); MCH 29.5 pg (26.0-34.0); MCHC 32.8 g/dL (31.0-37.0); MCV 89.9 fL (80.0-100.0); MEAN PLATELET VOLUME 8.8 fL (7.4-10.4); MONOCYTES 8.6 % (2-11); NEUTROPHILS 67.7 % (40-80); PLATELET COUNT 413 10x3/uL (130-400); RBC 4.17 10x6/uL (4.20-6.10); RDW 12.8 % (11.5-14.5); WBC 12.9 10x3/uL (4.8-10.8)
[2019-07-15 06:40] LABS: ALBUMIN 2.3 g/dL (3.4-5.0); ALKALINE PHOSPHATASE 66 U/L (46-116); ALT (SGPT) 21 U/L (10-68); CALC OSMOLALITY 284 mosm/kg (275-300); CALCIUM 8.7 mg/dL (8.5-10.1); CARBON DIOXIDE 30.1 mmol/L (21.0-32.0); CHLORIDE - SERUM 105 mmol/L (98-107); CREATININE - SERUM 0.9 mg/dL (0.6-1.3); GLUCOSE 111 mg/dL (74-106); PHOSPHOROUS 3.9 mg/dL (2.5-4.9); POTASSIUM - SERUM 3.8 mmol/L (3.5-5.1); PROTEIN - SERUM 6.6 g/dL (6.4-8.2); SODIUM 143 mmol/L (136-145); UREA NITROGEN 9 mg/dL (7-18); eGFR NON AFRICAN AMERICAN > 90 mL/min (90-120)
--- NOTE | 2019-07-15 07:40 | NUR ---
ASSESSMENT DONE. DENIES NEEDS
--- NOTE | 2019-07-15 07:45 | NUR ---
ASSESSMENT DONE. DENIES NEEDS
--- NOTE | 2019-07-15 07:55 | NUR ---
Nutrition follow-up: Pt NPO Labs reviewed TPN @ 40 ml/hr Will continue current TPN regimen. RDN following.
[2019-07-15 10:29] VITALS: BP 122/66
[2019-07-15 12:09] LABS: INR 1.05 (0.85-1.17); PROTIME 13.2 SECONDS (11.6-15.0)
[2019-07-15 14:04] VITALS: BP 105/78
--- NOTE | 2019-07-15 14:30 | NUR ---
RETURN FROM IR WITH DRAIN TUBING AT THE BELLY BUTTON NOTED.
--- NOTE | 2019-07-15 17:23 | NUR ---
I have reviewed this patient and I concur with the Shift Assessment completed by the Licensed Practical Nurse today this shift.
[2019-07-15 17:43] VITALS: BP 107/52
[2019-07-15 20:30] VITALS: BP 120/83
[2019-07-16 00:30] VITALS: BP 106/60
[2019-07-16 04:00] VITALS: BP 99/62
[2019-07-16 05:30] LABS: BASOPHILS 0.4 % (0-2); EOSINOPHILS 11.1 % (0-7); HEMATOCRIT 39.3 % (42.0-54.0); HEMOGLOBIN 12.8 g/dL (13.5-17.5); IMMATURE GRANULOCYTES 0.5 % (0-5); LYMPHOCYTES 19.8 % (15-50); MCH 29.4 pg (26.0-34.0); MCHC 32.6 g/dL (31.0-37.0); MCV 90.3 fL (80.0-100.0); MEAN PLATELET VOLUME 8.9 fL (7.4-10.4); MONOCYTES 7.9 % (2-11); NEUTROPHILS 60.3 % (40-80); PLATELET COUNT 457 10x3/uL (130-400); RBC 4.35 10x6/uL (4.20-6.10); RDW 12.8 % (11.5-14.5)
[2019-07-16 05:54] LABS: WBC 9.1 10x3/uL (4.8-10.8)
[2019-07-16 06:15] LABS: ALBUMIN 2.2 g/dL (3.4-5.0); ALKALINE PHOSPHATASE 55 U/L (46-116); ALT (SGPT) 25 U/L (10-68); BILIRUBIN - TOTAL 0.32 mg/dL (0.2-1.3); CALC OSMOLALITY 284 mosm/kg (275-300); CARBON DIOXIDE 32.8 mmol/L (21.0-32.0); CHLORIDE - SERUM 105 mmol/L (98-107); CREATININE - SERUM 0.9 mg/dL (0.6-1.3); GLUCOSE 114 mg/dL (74-106); MAGNESIUM - SERUM 2.1 mg/dL (1.8-2.4); POTASSIUM - SERUM 4.2 mmol/L (3.5-5.1); PROTEIN - SERUM 6.5 g/dL (6.4-8.2); SODIUM 143 mmol/L (136-145); UREA NITROGEN 11 mg/dL (7-18); eGFR NON AFRICAN AMERICAN > 90 mL/min (90-120)
--- NOTE | 2019-07-16 07:07 | NUR ---
Nutrition follow-up: Pt is s/p abdominal drain placement 07/15 TPN continues @ 40 ml/hr Labs reviewed; PO4 elevated; however, there is no PO4 in the bag Will continue current TPN regimen at this time. RDN following.
[2019-07-16 10:13] VITALS: BP 100/58
--- NOTE | 2019-07-16 11:38 | NUR ---
70ML OF SANGINOUS DRAINAGE OUTPUT RECORDED FROM PELVIC ABSCESS DRAIN. FLUSHED WITH 10ML OF NS. WILL CTM.
--- NOTE | 2019-07-16 13:03 | NUR ---
I have reviewed this patient and I concur with the Shift Assessment completed by the Licensed Practical Nurse today this shift.
[2019-07-16 14:25] VITALS: BP 132/82
[2019-07-16 17:05] VITALS: BP 126/77
[2019-07-16 21:48] VITALS: BP 115/76
[2019-07-17 00:30] VITALS: BP 108/72
[2019-07-17 04:30] VITALS: BP 112/41
[2019-07-17 05:20] LABS: BASOPHILS 0.5 % (0-2); EOSINOPHILS 12.3 % (0-7); HEMATOCRIT 39.5 % (42.0-54.0); IMMATURE GRANULOCYTES 0.5 % (0-5); MCH 29.6 pg (26.0-34.0); MCHC 32.9 g/dL (31.0-37.0); MONOCYTES 7.1 % (2-11); NEUTROPHILS 56.6 % (40-80); PLATELET COUNT 462 10x3/uL (130-400); RBC 4.39 10x6/uL (4.20-6.10); RDW 12.8 % (11.5-14.5); WBC 7.6 10x3/uL (4.8-10.8)
[2019-07-17 05:55] LABS: ALBUMIN 2.3 g/dL (3.4-5.0); ALKALINE PHOSPHATASE 69 U/L (46-116); ALT (SGPT) 50 U/L (10-68); CALC OSMOLALITY 283 mosm/kg (275-300); CALCIUM 9.1 mg/dL (8.5-10.1); CARBON DIOXIDE 28.5 mmol/L (21.0-32.0); CHLORIDE - SERUM 106 mmol/L (98-107); CREATININE - SERUM 0.8 mg/dL (0.6-1.3); GLUCOSE 109 mg/dL (74-106); MAGNESIUM - SERUM 2.1 mg/dL (1.8-2.4); POTASSIUM - SERUM 4.3 mmol/L (3.5-5.1); PROTEIN - SERUM 6.6 g/dL (6.4-8.2); SODIUM 142 mmol/L (136-145); UREA NITROGEN 12 mg/dL (7-18); eGFR NON AFRICAN AMERICAN > 90 mL/min (90-120)
--- NOTE | 2019-07-17 06:44 | NUR ---
Nutrition follow-up: Chart reviewed Labs reviewed; PO4 elevated; however, there is no PO4 in TPN Clear liquid diet started RDN following
--- NOTE | 2019-07-17 07:25 | NUR ---
PT RESTING PEACEFULLY, BREATHS EVEN, REGULAR AND UNLABORED. NO SIGNS OR SYMTPOMS OF ACUTE DISTRESS AT THIS TIME. ROOM DOES NOT SMELL PLEASANT, WILL ENCOURAGE PT TO SHOWER TODAY. CL IN REACH, SRX2
[2019-07-17 09:05] VITALS: BP 127/79
--- NOTE | 2019-07-17 15:11 | NUR ---
PT AWAKE AND ORIENTED, C/O PAIN MEDICAITON NOT BEING THE KIND HE WANTED. CL IN REACH, SRX2. AT BEDSIDE.
[2019-07-17 16:00] VITALS: BP 118/74
--- NOTE | 2019-07-17 16:27 | NUR ---
I have reviewed this patient and I concur with the Shift Assessment completed by the Licensed Practical Nurse today this shift.
[2019-07-17 18:28] VITALS: BP 117/78
--- NOTE | 2019-07-17 19:10 | NUR ---
BEDSIDE REPORT RECEIVED FROM DAY SHIFT, PT CARE ASSUMED. WROTE NAME ON BOARD. PT LYING IN BED WITH EYES CLOSED, RR EVEN AND NONLABORED, NO S/S OF DISTRESS, AROUSES EASILY TO VOICE. DENIES ANY NEEDS AT THIS TIME. AT BEDSIDE. BED IN LOWEST POSITION, SR X2, CALL LIGHT WITHIN REACH. WILL CONTINUE TO MONITOR.
[2019-07-17 20:00] VITALS: BP 122/81
[2019-07-18 00:05] VITALS: BP 121/74
[2019-07-18 04:36] VITALS: BP 120/64
[2019-07-18 06:09] LABS: BASOPHILS 0.4 % (0-2); EOSINOPHILS 10.2 % (0-7); HEMATOCRIT 37.5 % (42.0-54.0); HEMOGLOBIN 12.4 g/dL (13.5-17.5); IMMATURE GRANULOCYTES 0.5 % (0-5); LYMPHOCYTES 26.1 % (15-50); MCH 29.5 pg (26.0-34.0); MCHC 33.1 g/dL (31.0-37.0); MCV 89.3 fL (80.0-100.0); MEAN PLATELET VOLUME 8.9 fL (7.4-10.4); MONOCYTES 7.2 % (2-11); NEUTROPHILS 55.6 % (40-80); PLATELET COUNT 496 10x3/uL (130-400); RDW 12.7 % (11.5-14.5); WBC 7.8 10x3/uL (4.8-10.8)
[2019-07-18 06:53] LABS: ALBUMIN 2.3 g/dL (3.4-5.0); ALKALINE PHOSPHATASE 61 U/L (46-116); ALT (SGPT) 48 U/L (10-68); BILIRUBIN - TOTAL 0.19 mg/dL (0.2-1.3); CALC OSMOLALITY 286 mosm/kg (275-300); CALCIUM 8.9 mg/dL (8.5-10.1); CARBON DIOXIDE 27.7 mmol/L (21.0-32.0); CHLORIDE - SERUM 108 mmol/L (98-107); CREATININE - SERUM 0.9 mg/dL (0.6-1.3); GLUCOSE 116 mg/dL (74-106); POTASSIUM - SERUM 4.2 mmol/L (3.5-5.1); PROTEIN - SERUM 6.4 g/dL (6.4-8.2); SODIUM 143 mmol/L (136-145); UREA NITROGEN 14 mg/dL (7-18); eGFR NON AFRICAN AMERICAN > 90 mL/min (90-120)
[2019-07-18 07:37] VITALS: BP 131/88
--- NOTE | 2019-07-18 08:29 | NUR ---
PT RESTING PEACEFULLY, LOUDLY SNORING. ATTEMTPED TWICE TO WAKE PT UP FOR HIS MORNING MEDS, HE REFUSED ROLLING OVER AND SNORING. CL IN REACH, SRX2.
--- NOTE | 2019-07-18 08:56 | NUR ---
Nutrition follow-up: Pt diet advanced to full liquids per srgeon TPN continues at 40 ml/hr Labs reviewed Will continue with currebt TPN order RDN following
--- NOTE | 2019-07-18 10:16 | NUR ---
PT HAD BEEN OIL PIPE INSPECTOR LIGHT FOR LESS THAN 5 MINUTES, I SAT DOWN TO MAKE SURE I GOT ALL HIS CORRECT, WAS ABOUT TO GO IN [place] TO SCAN THEM WHEN PT WALKED BY WITH HIS ANGRILY LOOKING AT ME AND GRUMBLING. TRIED TO TELL HIM I WAS ON MY WAY WITH HIS MEDICATIONS (GOING TO GIVE THE ONES HE WOULD NOT WAKE UP FOR THIS MORNING), BUT HE KEPT WALKING. WILL ATTEMTP TO GIVE WHEN HE COMES BACK.
[2019-07-18 11:28] VITALS: BP 143/87
--- NOTE | 2019-07-18 13:18 | NUR ---
I have reviewed this patient and I concur with the Shift Assessment completed by the Licensed Practical Nurse today this shift.
[2019-07-18 16:06] VITALS: BP 143/95
--- NOTE | 2019-07-18 18:27 | NUR ---
PT SLEEPING, ATTEMTPED TO DRAIN BAG BUT WAS UNABLE TO GET PATIENT TO BUDGE AT THISTIME. PT HAS C/O THE LOUD NOISES AND SCREAMS MADE BY ROOMS 2030 AND 2127 BUT I INFORMED HIM WE COULD NOT MOVE HIM D/T LACK OF SPACE. PT IS UNHAPPY BUT COMPLIENT. GF AT BEDSIDE. CL IN REACH, SRX2.
--- NOTE | 2019-07-18 20:00 | NUR ---
A/O WITH NO SIGNS OF ACUTE DISTRESS. LT UPPER ARM LINE NOTED. DRESSING CDI. DRAIN NOTED TO THE ABDOMEN WITH SEROSANGUINEOUS DRAINAGE NOTED. DRESSING IS CLEAN AND INTACT. DENIES NO FURTHER NEEDS AT THIS TIME. CONTINUE PLAN OF CARE.
[2019-07-18 20:45] VITALS: BP 127/86
[2019-07-19 00:15] VITALS: BP 124/84
[2019-07-19 04:18] VITALS: BP 128/84
[2019-07-19 08:39] VITALS: BP 130/73
--- NOTE | 2019-07-19 09:21 | NUR ---
PT AWAKE ALERT AND ORIENTED THIS MORNING WHEN I ENTERED ROOM. CALLED OR, LEFT A MESSAGE FOR DR. DENNIS THAT PTS DRAIN HAD 10CC OUTPUT FOR 24HR. PT BACK IN ROOM, D/C TPN. BED BROKE, TRYING TO FIX. CL IN REACH SRXW AT BEDSIDE
[2019-07-19 09:55] LABS: CALC OSMOLALITY 281 mosm/kg (275-300); CALCIUM 9.2 mg/dL (8.5-10.1); CARBON DIOXIDE 30.2 mmol/L (21.0-32.0); CHLORIDE - SERUM 106 mmol/L (98-107); CREATININE - SERUM 0.9 mg/dL (0.6-1.3); GLUCOSE 102 mg/dL (74-106); MAGNESIUM - SERUM 1.9 mg/dL (1.8-2.4); PHOSPHOROUS 3.4 mg/dL (2.5-4.9); POTASSIUM - SERUM 4.5 mmol/L (3.5-5.1); SODIUM 142 mmol/L (136-145); UREA NITROGEN 11 mg/dL (7-18); eGFR NON AFRICAN AMERICAN > 90 mL/min (90-120)
--- NOTE | 2019-07-19 10:49 | NUR ---
I have reviewed this patient and I concur with the Shift Assessment completed by the Licensed Practical Nurse today this shift.
[2019-07-19 12:09] VITALS: BP 122/77
[2019-07-19] MEDS ORDERED: HYDROCODON-ACE1 EAC7 PO (15:10)
[2019-07-19] MEDS ORDERED: MIRALAX17 GM PO (15:10)
[2019-07-19] MEDS ORDERED: INVANZ 1 GM/NS 11 G1 IV (15:10)
--- NOTE | 2019-07-19 15:32 | MORECARE ---
CASE MANAGEMENT DISCHARGE SUMMARY PATIENT: BROOKE KELLEY UNIT: [id number] ADM DATE: 07/06/19 AGE: 34 : [birth year] SEX: M ROOM/BED: D.2133 AUTHOR: FELIPEDOC PHYSICIAN: REFERRING PHYSICIAN: ERICKA MARTIN MD DATE OF SERVICE: 07/19/19 Discharge Plan Patient Name: BROOKE KELLEY Facility: [facility]:[place] : 1985 Planned Disposition: Home with Infusion Therapy Services Anticipated Discharge Date: 07/19/19 Discharge Date: Expected LOS: 13 Initial Reviewer: [email or web address] Initial Review Date: 07/06/2019 Generated: 07/19/19 4:31 pm DCP- Discharge Planning Updated by [email or web address]: Bethanie Carroll on 07/06/19 2:[address] DC PLAN: Return home with and room-mate independently. ANTICIPATED DC NEEDS: Denied known dc needs at time of admission assessment. CM met with patient and his to complete initial dc planning assessment. CM educated patient on the CM role and verbal consent given by patient to complete assessment. CM verified patient's address, phone number, and emergency contact phone numbers. Patient lives at home with his and a roommate. He reports he is independent in his care at home. At discharge patient plans to return home independently and feels this is a safe discharge. CM discussed availability of home health, rehab services, and medical equipment. Patient denied known discharge needs at this time. Transportation provider at discharge will be his CM will continue to follow and will assist as needed with dc plans/needs. DCPIA - Discharge Planning Initial Assessment Updated by [email or web address]: Bethanie Carroll on 07/06/19 3:48 pm * Is the patient Alert and Oriented? Yes * How many steps to enter\exit or inside your home? * PCP No PCP * Pharmacy [facility] * Preadmission Environment Home with Family * ADLs Independent * Equipment None * List name and contact numbers for known caregivers / representatives who currently or will assist patient after discharge: Elyse - spouse - no phone. Elias Carroll - room mate - [phone] * Verbal permission to speak to the caregivers and representatives has been obtained from the patient. Yes * Community resources currently utilized None * Additional services required to return to the preadmission environment? No * Can the patient safely return to the preadmission environment? Yes * Has this patient been hospitalized within the prior 30 days at any hospital? No Last DP export: 07/06/19 2:56 Patient Name: BROOKE KELLEY Page [id number] at 1532 All edits/amendments must be made on the electronic document DICTATION DATE: 07/19/191530 PATCHING MACHINE OPERATOR: EVERTON 07/19/191530 RPT#: [id number] DC DATE: STATUS: ADM IN [facility] [address] [place] [address] END OF REPORT
--- NOTE | 2019-07-19 15:54 | MORECARE ---
CASE MANAGEMENT DISCHARGE SUMMARY PATIENT: BROOKE KELLEY UNIT: [id number] ADM DATE: 07/06/19 AGE: 34 : 83 SEX: M ROOM/BED: D.2133 AUTHOR: FELIPEDOC PHYSICIAN: REFERRING PHYSICIAN: ERICKA MARTIN MD DATE OF SERVICE: 07/19/19 Discharge Plan Patient Name: BROOKE KELLEY Facility: [facility]:[place] : 1985 Planned Disposition: Home with Infusion Therapy Services Anticipated Discharge Date: 07/19/19 Discharge Date: Expected LOS: 13 Initial Reviewer: [email or web address] Initial Review Date: 07/06/2019 Generated: 07/19/19 4:54 pm DCP- Discharge Planning Updated by [email or web address]: Bethanie Carroll on 07/06/19 2:[address] DC PLAN: Return home with and room-mate independently. ANTICIPATED DC NEEDS: Denied known dc needs at time of admission assessment. CM met with patient and his to complete initial dc planning assessment. CM educated patient on the CM role and verbal consent given by patient to complete assessment. CM verified patient's address, phone number, and emergency contact phone numbers. Patient lives at home with his and a roommate. He reports he is independent in his care at home. At discharge patient plans to return home independently and feels this is a safe discharge. CM discussed availability of home health, rehab services, and medical equipment. Patient denied known discharge needs at this time. Transportation provider at discharge will be his CM will continue to follow and will assist as needed with dc plans/needs. DCPIA - Discharge Planning Initial Assessment Updated by [email or web address]: Bethanie Carroll on 07/06/19 3:48 pm * Is the patient Alert and Oriented? Yes * How many steps to enter\exit or inside your home? * PCP No PCP * Pharmacy [facility] * Preadmission Environment Home with Family * ADLs Independent * Equipment None * List name and contact numbers for known caregivers / representatives who currently or will assist patient after discharge: Elyse - spouse - no phone. Elias Carroll - room mate - [phone] * Verbal permission to speak to the caregivers and representatives has been obtained from the patient. Yes * Community resources currently utilized None * Additional services required to return to the preadmission environment? No * Can the patient safely return to the preadmission environment? Yes * Has this patient been hospitalized within the prior 30 days at any hospital? No External Providers External Provider: [facility] Next Contact Date: 07/19/2019 Service Request Date: Service Type: Resolution: Reviewer: Comments: External Provider: [facility] Next Contact Date: 07/19/2019 Service Request Date: Service Type: Resolution: Reviewer: Comments: Last DP export: 07/19/19 2:32 Patient Name: BROOKE KELLEY Page 13924 at 1554 All edits/amendments must be made on the electronic document DICTATION DATE: 07/19/191553 DIE STORAGE WORKER: EVERTON 07/19/191553 RPT#: [id number] DC DATE: STATUS: ADM IN [facility] [address] [place] [address] END OF REPORT
--- NOTE | 2019-07-19 16:23 | MORECARE ---
CASE MANAGEMENT DISCHARGE SUMMARY PATIENT: BROOKE KELLEY UNIT: [id number] ADM DATE: 07/06/19 AGE: 34 : 83 SEX: M ROOM/BED: D.2133 AUTHOR: FELIPEDOC PHYSICIAN: REFERRING PHYSICIAN: ERICKA MARTIN MD DATE OF SERVICE: 07/19/19 Discharge Plan Patient Name: BROOKE KELLEY Facility: [facility]:[place] : 1985 Planned Disposition: Home with Infusion Therapy Services Anticipated Discharge Date: 07/19/19 Discharge Date: Expected LOS: 13 Initial Reviewer: [email or web address] Initial Review Date: 07/06/2019 Generated: 07/19/19 5:22 pm DCP- Discharge Planning Updated by [email or web address]: Bethanie Carroll on 07/06/19 2:[address] DC PLAN: Return home with and room-mate independently. ANTICIPATED DC NEEDS: Denied known dc needs at time of admission assessment. CM met with patient and his to complete initial dc planning assessment. CM educated patient on the CM role and verbal consent given by patient to complete assessment. CM verified patient's address, phone number, and emergency contact phone numbers. Patient lives at home with his and a roommate. He reports he is independent in his care at home. At discharge patient plans to return home independently and feels this is a safe discharge. CM discussed availability of home health, rehab services, and medical equipment. Patient denied known discharge needs at this time. Transportation provider at discharge will be his CM will continue to follow and will assist as needed with dc plans/needs. DCPIA - Discharge Planning Initial Assessment Updated by [email or web address]: Bethanie Carroll on 07/06/19 3:48 pm * Is the patient Alert and Oriented? Yes * How many steps to enter\exit or inside your home? * PCP No PCP * Pharmacy [facility] * Preadmission Environment Home with Family * ADLs Independent * Equipment None * List name and contact numbers for known caregivers / representatives who currently or will assist patient after discharge: Elyse - spouse - no phone. Elias Carroll - room mate - [phone] * Verbal permission to speak to the caregivers and representatives has been obtained from the patient. Yes * Community resources currently utilized None * Additional services required to return to the preadmission environment? No * Can the patient safely return to the preadmission environment? Yes * Has this patient been hospitalized within the prior 30 days at any hospital? No Last DP export: 07/19/19 2:54 Patient Name: BROOKE KELLEY Page [id number] at 1623 All edits/amendments must be made on the electronic document DICTATION DATE: 07/19/191621 HEELER: EVERTON 07/19/191621 RPT#: [id number] DC DATE: STATUS: ADM IN [facility] [address] [place] [address] END OF REPORT
--- NOTE | 2019-07-19 16:30 | MORECARE ---
CASE MANAGEMENT DISCHARGE SUMMARY PATIENT: BROOKE KELLEY UNIT: [id number] ADM DATE: 07/06/19 AGE: 34 : 83 SEX: M ROOM/BED: D.2133 AUTHOR: FELIPE,DOC PHYSICIAN: REFERRING PHYSICIAN: ERICKA MARTIN MD DATE OF SERVICE: 07/19/19 Discharge Plan Patient Name: BROOKE KELLEY Facility: [facility]:[place] : 1985 Planned Disposition: Home with Infusion Therapy Services Anticipated Discharge Date: 07/19/19 Discharge Date: Expected LOS: 13 Initial Reviewer: [id number] Initial Review Date: 07/06/2019 Generated: 07/19/19 5:30 pm Comments DCP- Discharge Planning Updated by [email or web address]: Moises Winters on 07/19/19 3:[address] Patient Name: BROOKE KELLEY Encounter No: [id number] : 1985 Primary Insurance: MEDICAID [place] Anticipated DC Date: 07-19-2019 Planned Disposition: Home with Infusion Therapy Services External Planned Provider: [facility] [place], [facility] DCP follow-up note: CM SPOKE TO DR. DENNIS AT [facility] WHO WANTS TO DISCHARGE PT HOME TODAY WITH HOME INFUSION AND DRAIN CARE. ORDER RECEIVED. CM SPOKE TO PT IN ROOM, PROVIDED LISTINGS FOR HOME HEALTH AND INFUSION PROVIDERS; PT HAS NO PREFERENCE, CHOICE SIGNED FOR NO PREFERNECE OF PROVIDERS. PT STATES HIS SISTER IS STRAW HAT PLUNGER OPERATOR AND CAN DO THE HOME INFUSIONS. CM VERIFIED HOME ADDRESS AND PHONE NUMER FOR PT. PT IS NOT CURRENTLY USING ANY MEDICATION SLOTS FOR HIS MEDICAID. PT REPORTS HIS WILL PICK HIM UP FOR TRANSPORT HOME TODAY. CM CALLED [facility], WAS ADVISED BY DEVEN, NO AVAILABLITY UNTIL FRIDAY. CM CALLED [facility] IN [place], REFERRED CM TO [place] OFFICE. CM CALLED [facility] IN [place], , SPOKE TO PADDY WHO STATES SHE WILL HAVE TO REVIEW REFERRAL TO MAKE ADMISSION DETERMINATION. CM FAXED REFERRAL TO [facility] IN [place] AT . CM CALLED [facility], , LEFT MESSAGE FROM RODGER WHO WILL REVIEW REFERRAL AND BEGIN ARRANGEMENTS FOR INFUSION MEDICATIONS AND SUPPLIES. CM FAXED REFERRAL INFORMATION TO [facility] AT [phone]. CM WAITING ON [facility] TO MAKE ADMISSION DETERMINATION AND FOR [facility] TO ACCEPT PT AND MAKE MEDICATION / SUPPLY DELIVERY ARRANGEMENTS. Moises Winters, CASE MANAGEMENT DCP- Discharge Planning Updated by [id number]: Bethanie Carroll on 07/06/19 2:[address] DC PLAN: Return home with and room-mate independently. ANTICIPATED DC NEEDS: Denied known dc needs at time of admission assessment. CM met with patient and his to complete initial dc planning assessment. CM educated patient on the CM role and verbal consent given by patient to complete assessment. CM verified patient's address, phone number, and emergency contact phone numbers. Patient lives at home with his and a roommate. He reports he is independent in his care at home. At discharge patient plans to return home independently and feels this is a safe discharge. CM discussed availability of home health, rehab services, and medical equipment. Patient denied known discharge needs at this time. Transportation provider at discharge will be his CM will continue to follow and will assist as needed with dc plans/needs. DCPIA - Discharge Planning Initial Assessment Updated by [email or web address]: Bethanie Carroll on 07/06/19 3:48 pm * Is the patient Alert and Oriented? Yes * How many steps to enter\exit or inside your home? * PCP No PCP * Pharmacy [facility] * Preadmission Environment Home with Family * ADLs Independent * Equipment None * List name and contact numbers for known caregivers / representatives who currently or will assist patient after discharge: Elyse - spouse - no phone. Elias Carroll - room mate - [phone] * Verbal permission to speak to the caregivers and representatives has been obtained from the patient. Yes * Community resources currently utilized None * Additional services required to return to the preadmission environment? No * Can the patient safely return to the preadmission environment? Yes * Has this patient been hospitalized within the prior 30 days at any hospital? No Coverage Notice Reviewer: [id number] - Moises Winters Notice Issued Date-Time: 07/19/2019 15:20 Notice Type: Patient Choice Letter Notice Delivered To: Patient Relationship to Patient: Pre Assembly Wirer Name: Delivery Method: HAND - Hand Delivered Cristy Days: Prior Verbal Notification: Recipient Understood Notice: Yes Recipient Signature: Yes Med Rec Note Co-signed by Attending: Coverage Notice Comment: NO HOME HEALTH PREFERENCE NO INFUSION COMPANY PREFERENCE Last DP export: 07/19/19 3:23 Patient Name: BROOKE KELLEY Page 38910 at 1630 All edits/amendments must be made on the electronic document DICTATION DATE: 07/19/19 163 DUST BRUSH ASSEMBLER: EVERTON 07/19/19 1630 RPT#: [id number] DC DATE: STATUS: ADM IN [facility] [address] [place] [address] END OF REPORT
[2019-07-19 17:56] VITALS: BP 123/78
[2019-07-19 20:30] VITALS: BP 131/75
--- NOTE | 2019-07-20 01:21 | NUR ---
I have reviewed this patient and I concur with the Shift Assessment completed by the Licensed Practical Nurse today this shift.
--- NOTE | 2019-07-20 01:30 | NUR ---
LYING IN BED RESTING WITH EYES CLOSED. FAMILY IS AT BEDSIDE. NO SIGNS OR SYMPTOMS OF RESPIRATORY DISTRESS NOTED. ALERT AND ORINTED x4. PT GOES OFF FLOOR FOR SMOKING BREAKS. LEFT UPER ARM PICC. BOWELL SOUNDS ACTIVE X4. PT REFUSED HIS MIRALAX. NO COMPLINTS OF PAIN AT THIS TIME. CALL LIGHT WITHIN REACH AND BED IN LOWEST POSITION. WILL CONTINUE TO MONITOR.
[2019-07-20 04:43] VITALS: BP 108/73
--- NOTE | 2019-07-20 07:20 | NUR ---
PATIENT IS RESTING AT THIS TIME. HE IS GOING TO BE DISCHARGED TODAY. RECIEVED REPORT. BUSINESS INTEGRATION ANALYST LET ME KNOW THAT HE IS GOING HOME WITH A PICC LINE, AND HE HAS A DRAIN IN HIS LEFT SIDE AND HE IS GOING HOME WITH FOR 2 WEEKS. GIRLFRIEND IN BED WITH HIM. LIGHTS LOW, CALL LIGHT IN REACH, BED IN LOW POSITION. PATIENT DENIES ANY NEEDS AT THIS TIME. DRIN HAS BEEN FLUSHED THIS MORNING AND ONLY 3CC OUT. DRESSING CLEAN DRY AND INTACT.
[2019-07-20 08:07] LABS: BASOPHILS 0.7 % (0-2); EOSINOPHILS 8.9 % (0-7); HEMATOCRIT 39.7 % (42.0-54.0); HEMOGLOBIN 13.1 g/dL (13.5-17.5); IMMATURE GRANULOCYTES 0.5 % (0-5); LYMPHOCYTES 26.1 % (15-50); MCH 29.6 pg (26.0-34.0); MCV 89.8 fL (80.0-100.0); MONOCYTES 7.7 % (2-11); NEUTROPHILS 56.1 % (40-80); PLATELET COUNT 593 10x3/uL (130-400); RBC 4.42 10x6/uL (4.20-6.10); RDW 12.9 % (11.5-14.5); WBC 7.6 10x3/uL (4.8-10.8)
[2019-07-20 08:20] LABS: CALC OSMOLALITY 282 mosm/kg (275-300); CALCIUM 9.3 mg/dL (8.5-10.1); CARBON DIOXIDE 28.5 mmol/L (21.0-32.0); CHLORIDE - SERUM 106 mmol/L (98-107); CREATININE - SERUM 0.8 mg/dL (0.6-1.3); GLUCOSE 104 mg/dL (74-106); POTASSIUM - SERUM 3.9 mmol/L (3.5-5.1); SODIUM 142 mmol/L (136-145); UREA NITROGEN 13 mg/dL (7-18); eGFR NON AFRICAN AMERICAN > 90 mL/min (90-120)
--- NOTE | 2019-07-20 10:22 | MORECARE ---
CASE MANAGEMENT DISCHARGE SUMMARY PATIENT: BROOKE KELLEY UNIT: [id number] ADM DATE: 07/06/19 AGE: 34 : 83 SEX: M ROOM/BED: D.2133 AUTHOR: FELIPE,DOC PHYSICIAN: REFERRING PHYSICIAN: ERICKA MARTIN MD DATE OF SERVICE: 07/20/19 Discharge Plan Patient Name: BROOKE KELLEY Facility: [facility]:[place] : 1985 Planned Disposition: Home with Infusion Therapy Services Anticipated Discharge Date: 07/20/19 Discharge Date: Expected LOS: 14 Initial Reviewer: [email or web address] Initial Review Date: 07/06/2019 Generated: 07/20/19 11:22 am Comments DCP- Discharge Planning Updated by [email or web address]: Moises Winters on 07/19/19 3:[address] Patient Name: BROOKE KELLEY Encounter No: [id number] : 1985 Primary Insurance: MEDICAID [place] Anticipated DC Date: 07-19-2019 Planned Disposition: Home with Infusion Therapy Services External Planned Provider: [facility] [place], [facility] DCP follow-up note: CM SPOKE TO DR. DENNIS AT [facility] WHO WANTS TO DISCHARGE PT HOME TODAY WITH HOME INFUSION AND DRAIN CARE. ORDER RECEIVED. CM SPOKE TO PT IN ROOM, PROVIDED LISTINGS FOR HOME HEALTH AND INFUSION PROVIDERS; PT HAS NO PREFERENCE, CHOICE SIGNED FOR NO PREFERNECE OF PROVIDERS. PT STATES HIS SISTER IS FINGER COBBLER AND CAN DO THE HOME INFUSIONS. CM VERIFIED HOME ADDRESS AND PHONE NUMER FOR PT. PT IS NOT CURRENTLY USING ANY MEDICATION SLOTS FOR HIS MEDICAID. PT REPORTS HIS WILL PICK HIM UP FOR TRANSPORT HOME TODAY. CM CALLED [facility], WAS ADVISED BY DEVEN, NO AVAILABLITY UNTIL FRIDAY. CM CALLED [facility] IN [place], REFERRED CM TO [place] OFFICE. CM CALLED [facility] IN [place], , SPOKE TO PADDY WHO STATES SHE WILL HAVE TO REVIEW REFERRAL TO MAKE ADMISSION DETERMINATION. CM FAXED REFERRAL TO [facility] IN [place] AT . CM CALLED [facility], , LEFT MESSAGE FROM RODGER WHO WILL REVIEW REFERRAL AND BEGIN ARRANGEMENTS FOR INFUSION MEDICATIONS AND SUPPLIES. CM FAXED REFERRAL INFORMATION TO [facility] AT [phone]. CM WAITING ON [facility] TO MAKE ADMISSION DETERMINATION AND FOR [facility] TO ACCEPT PT AND MAKE MEDICATION / SUPPLY DELIVERY ARRANGEMENTS. Moises Winters, CASE MANAGEMENT DCP- Discharge Planning Updated by [email or web address]: Bethanie Carroll on 07/06/19 2:[address] DC PLAN: Return home with and room-mate independently. ANTICIPATED DC NEEDS: Denied known dc needs at time of admission assessment. CM met with patient and his to complete initial dc planning assessment. CM educated patient on the CM role and verbal consent given by patient to complete assessment. CM verified patient's address, phone number, and emergency contact phone numbers. Patient lives at home with his and a roommate. He reports he is independent in his care at home. At discharge patient plans to return home independently and feels this is a safe discharge. CM discussed availability of home health, rehab services, and medical equipment. Patient denied known discharge needs at this time. Transportation provider at discharge will be his CM will continue to follow and will assist as needed with dc plans/needs. DCPIA - Discharge Planning Initial Assessment Updated by [email or web address]: Bethanie Carroll on 07/06/19 3:48 pm * Is the patient Alert and Oriented? Yes * How many steps to enter\exit or inside your home? * PCP No PCP * Pharmacy [facility] * Preadmission Environment Home with Family * ADLs Independent * Equipment None * List name and contact numbers for known caregivers / representatives who currently or will assist patient after discharge: Elyse - spouse - no phone. Elias Carroll - room mate - [phone] * Verbal permission to speak to the caregivers and representatives has been obtained from the patient. Yes * Community resources currently utilized None * Additional services required to return to the preadmission environment? No * Can the patient safely return to the preadmission environment? Yes * Has this patient been hospitalized within the prior 30 days at any hospital? No External Providers External Provider: [facility] Next Contact Date: 07/20/2019 Service Request Date: Service Type: Resolution: Reviewer: Comments: Coverage Notice Reviewer: [id number] - Moises Winters Notice Issued Date-Time: 07/19/2019 15:20 Notice Type: Patient Choice Letter Notice Delivered To: Patient Relationship to Patient: Mail List Librarian Name: Delivery Method: HAND - Hand Delivered Cristy Days: Prior Verbal Notification: Recipient Understood Notice: Yes Recipient Signature: Yes Med Rec Note Co-signed by Attending: Coverage Notice Comment: NO HOME HEALTH PREFERENCE NO INFUSION COMPANY PREFERENCE Last DP export: 07/19/19 3:30 Patient Name: BROOKE KELLEY Page [phone] at 1022 All edits/amendments must be made on the electronic document DICTATION DATE: 07/20/19 1022 LIBRARY CLERK TALKING BOOKS: EVERTON 07/20/19 1022 RPT#: [id number] DC DATE: STATUS: ADM IN [facility] [address] [place] [address] END OF REPORT
--- NOTE | 2019-07-20 12:13 | NUR ---
Nutrition Follow-up: TPN has been d/c'd and diet advanced. Pt reports tolerating solids. Noted plans to d/c today. Diet: Regular Wt: 216.3# (07/18); 222.6# (07/15) Last BM: 07/20 Labs reviewed Meds reviewed -Continue current diet as tolerated. -Need new wt. -RD following.
--- NOTE | 2019-07-20 15:02 | NUR ---
PATIENT HAS BEEN DISCHARGED. IV FROM RIGHT FOREARM REMOVED WITH CATHETER INTACT. NEW DRESSING PLACED OVER PICC LINE IN LEFT UPPER ARM. DRESSING OVER DRAIN SIGHT IS CLEAN DRY AND INTACT. ALL DISCHARGE TEACHING HAS BEEN COMPLETED AND SIGNED. HE WENT HOME WITH FAMILY AND ALL HIS BELONINGS HAVE GONE HOME WITH HIM. HE WENT DOWNSTAIRS BY WHEEL CHAIR.
--- NOTE | 2019-07-20 16:34 | MORECARE ---
CASE MANAGEMENT DISCHARGE SUMMARY PATIENT: BROOKE KELLEY UNIT: [id number] ADM DATE: 07/06/19 AGE: 34 : 83 SEX: M ROOM/BED: D.2133 AUTHOR: PAT WANG PHYSICIAN: REFERRING PHYSICIAN: ERICKA MARTIN MD DATE OF SERVICE: 07/20/19 Discharge Plan Patient Name: BROOKE KELLEY Facility: [facility]:[place] : 1985 Planned Disposition: Home with Infusion Therapy Services Anticipated Discharge Date: 07/20/19 Discharge Date: 07/20/2019 Expected LOS: 14 Initial Reviewer: [email or web address] Initial Review Date: 07/06/2019 Generated: 07/20/19 5:34 pm Comments DCP- Discharge Planning Updated by [email or web address]: Moises Winters on 07/20/19 3:[address] Patient Name: BROOKE KELLEY Encounter No: [id number] : 1985 Primary Insurance: MEDICAID [place] Anticipated DC Date: 07-20-2019 Planned Disposition: Home with Infusion Therapy Services External Planned Provider: [facility] DCP follow-up note: CM RECEIVED CALL FROM JOSEPHINE OF [facility], THEY DO NOT HAVE [facility] STAFF TO ACCEPT PT. CM CALLED [facility], SPOKE TO BETHANIE WHO ACCEPTED PT. CM NOTIFED RODGER OF [facility]. CM NOTIFIED PT. CM FAXED REFERRAL AND DISCHARGE INFORMATION TO [facility]. RODGER NOTIFIED CM THAT THEY WILL DELIVER ALL SUPPLIES TO PT FOR INFUSION IN THE MORNING. PT'S SPOUSE HERE TO TRANSPORT HOME, PT DENIES FURHTER NEEDS. GRADUATE STUDENT INSTRUCTOR NURSE NOTIFIED. Moises Winters, CASE MANAGEMENT DCP- Discharge Planning Updated by [email or web address]: Moises Winters on 07/19/19 3:[address] Patient Name: BROOKE KELLEY Encounter No: [id number] : 1985 Primary Insurance: MEDICAID [place] Anticipated DC Date: 07-19-2019 Planned Disposition: Home with Infusion Therapy Services External Planned Provider: [facility] DCP follow-up note: CM SPOKE TO DR. DENNIS AT [facility] WHO WANTS TO DISCHARGE PT HOME TODAY WITH HOME INFUSION AND DRAIN CARE. ORDER RECEIVED. CM SPOKE TO PT IN ROOM, PROVIDED LISTINGS FOR HOME HEALTH AND INFUSION PROVIDERS; PT HAS NO PREFERENCE, CHOICE SIGNED FOR NO PREFERNECE OF PROVIDERS. PT STATES HIS SISTER IS BUNGY JUMP MASTER AND CAN DO THE HOME INFUSIONS. CM VERIFIED HOME ADDRESS AND PHONE NUMER FOR PT. PT IS NOT CURRENTLY USING ANY MEDICATION SLOTS FOR HIS MEDICAID. PT REPORTS HIS WILL PICK HIM UP FOR TRANSPORT HOME TODAY. CM CALLED [facility], WAS ADVISED BY DEVEN NO AVAILABLITY UNTIL FRIDAY. CM CALLED [facility], REFERRED CM TO [place] OFFICE. CM CALLED [facility] IN [place], , SPOKE TO PADDY WHO STATES SHE WILL HAVE TO REVIEW REFERRAL TO MAKE ADMISSION DETERMINATION. [facility] . CM CALLED [facility], , LEFT MESSAGE FROM RODGER WHO WILL REVIEW REFERRAL AND BEGIN ARRANGEMENTS FOR INFUSION MEDICATIONS AND SUPPLIES. CM FAXED REFERRAL INFORMATION TO [facility] AT [phone]. CM WAITING ON [facility] TO MAKE ADMISSION DETERMINATION AND FOR [facility] TO ACCEPT PT AND MAKE MEDICATION / SUPPLY DELIVERY ARRANGEMENTS. Moises Winters, CASE MANAGEMENT DCP- Discharge Planning Updated by [email or web address]: Bethanie Carroll on 07/06/19 2:[address] DC PLAN: Return home with and room-mate independently. ANTICIPATED DC NEEDS: Denied known dc needs at time of admission assessment. CM met with patient and his to complete initial dc planning assessment. CM educated patient on the CM role and verbal consent given by patient to complete assessment. CM verified patient's address, phone number, and emergency contact phone numbers. Patient lives at home with his and a roommate. He reports he is independent in his care at home. At discharge patient plans to return home independently and feels this is a safe discharge. CM discussed availability of home health, rehab services, and medical equipment. Patient denied known discharge needs at this time. Transportation provider at discharge will be his CM will continue to follow and will assist as needed with dc plans/needs. DCPIA - Discharge Planning Initial Assessment Updated by [email or web address]: Bethanie Carroll on 07/06/19 3:48 pm * Is the patient Alert and Oriented? Yes * How many steps to enter\exit or inside your home? * PCP No PCP * Pharmacy [facility] * Preadmission Environment Home with Family * ADLs Independent * Equipment None * List name and contact numbers for known caregivers / representatives who currently or will assist patient after discharge: Elyse - spouse - no phone. Elias Carroll - room [facility] - [phone] * Verbal permission to speak to the caregivers and representatives has been obtained from the patient. Yes * Community resources currently utilized None * Additional services required to return to the preadmission environment? No * Can the patient safely return to the preadmission environment? Yes * Has this patient been hospitalized within the prior 30 days at any hospital? No Coverage Notice Reviewer: [email or web address] Magy Winters Notice Issued Date-Time: 07/19/2019 15:20 Notice Type: Patient Choice Letter Notice Delivered To: Patient Relationship to Patient: Assembler Installer Structures Name: Delivery Method: HAND - Hand Delivered Cristy Days: Prior Verbal Notification: Recipient Understood Notice: Yes Recipient Signature: Yes Med Rec Note Co-signed by Attending: Coverage Notice Comment: NO HOME HEALTH PREFERENCE NO INFUSION COMPANY PREFERENCE Last DP export: 07/20/19 9:22 Patient Name: BROOKE KELLEY Page [id number] at 1634 All edits/amendments must be made on the electronic document DICTATION DATE: 07/20/191633 PARTY HOST/HOSTESS: EVERTON 07/20/19 163 RPT#: [id number] DC DATE:07/20/19 STATUS: DIS IN [facility] [address] [place] [address] END OF REPORT
[2019-07-21 17:07] LABS: AEROBE ID Final report (())
[2019-07-22 19:08] LABS: AEROBE ID Final report (())
== END 2019-07-20 15:06 | disposition home health service (06) | DRG 391 ==
LOC: D.ER 08:41 → D.M2 12:17
PROVIDERS: Family Medicine; Radiology Vascular & Interventional Radiology; Surgery; ADMIT Internal Medicine Nephrology; ATTEND Internal Medicine Nephrology
PROC: 05HY33Z Insertion of Infusion Device into Upper Vein, Percutaneous Approach (ICD-10-PCS; 2019-07-12)
PROC: 0W9J30Z Drainage of Pelvic Cavity with Drainage Device, Percutaneous Approach (ICD-10-PCS; principal; 2019-07-15 12:34)
PROC: 3E0H7KZ Introduction of Other Diagnostic Substance into Lower GI, Via Natural or Artificial Opening (ICD-10-PCS; 2019-07-19)
DX: K57.20 Diverticulitis of large intestine with perforation and abscess without bleeding (principal); A41.9 Sepsis, unspecified organism; E87.1 Hypo-osmolality and hyponatremia; F17.213 Nicotine dependence, cigarettes, with withdrawal; F10.10 Alcohol abuse, uncomplicated

== ENCOUNTER → 2019-08-03 12:51 | Outpatient (CLI) | payer MEDICAID ==
[2019-07-10 14:45] VITALS: BMI 35.8
[~2019-08-03 12:51] MED LIST: HYDROCODON-ACE1 EAC7 PO; INVANZ 1 GM/NS 11 G1 IV; MIRALAX17 GM PO
== END | disposition home or self-care (01) ==
LOC: D.CT 12:51
PROVIDERS: ATTEND Surgery
DX: K57.20 Diverticulitis of large intestine with perforation and abscess without bleeding (principal)

== ENCOUNTER 2019-08-05 06:17 | Outpatient (CLI) | payer MEDICAID ==
[2019-07-10 14:45] VITALS: BMI 35.8
--- NOTE | ~2019-08-05 | HEMODYNAMI ---
PATIENT:BROOKE JORGE MEDICAL RECORD: [id number] : 83 LOCATION:FLIP ADMISSION DATE: 08/05/19 Generatedon:08/05/201910:34 Patient name: BROOKE JORGE Patient #: [id number] SSN: D OB: 1985 Date of study: 08/05/2019 Page: Of Hemodynamic Procedure Report Patient Data Patient Demographics Procedure consent was obtained First Name: BROOKE Gender: Male Last Name: ANIA : 1985 [facility] Initial: E Age: 34 year(s) Patient #: [id number] Race: Unknown Additional ID: [id number] Contact details Address: [address] [place] [address] AVE State: [place] City: [place] Zip code: [address] Past Medical History Allergies: No known allergies Admission Admission Data Admission Date: 08/05/2019 Admission Time: 6:17 Procedure Procedure Types Cath Procedure Peripheral Cath Diagnostic Procedure Abscess Abscess Drain Injection Procedure Description Procedure Date Procedure Date: 08/05/2019 Procedure Start Time: 10:27 Procedure Staff Name Function Wang Gamino MD Performing Physician KATHRYN CEVALLOS RT Monitor Mariam Chandler RN Nurse Patricia Self RN Nurse Osmani Camacho RT Scrub Procedure Data Cath Procedure Fluoroscopy Diagnostic fluoroscopy Total fluoroscopy Time: 0.5 time: 0.5 min min Contrast Material Contrast Material Type Amount (ml) Isovue 300 12 Procedure Medications Medication Administration Route Dosage Heparin Flush Bag added to field 1 bags (1000units/500ml NS) Hemodynamics Rest Pre Cath Intra NCS Post Cath Medications Time Medication Route Dose Verified Delivered Reason Notes Effec tiveness by by 10:26:51 Heparin Flush added 1 Wang Piña used for Bag to bags Hanny Gamino MD procedure (1000units/500ml field NS) Procedure Log Time Note 9:23:40 Mariam Chandler RN sent for patient. Start room use. 9:23:41 Time tracking: Regular hours (M-F 7:00 - 5:00) 9:23:59 Patient received from Outpatients to IR Alert and oriented. Tansferred to table in Supine position. 9:24:00 Signed procedure consent form obtained from patient. 9:24:01 Warm blankets applied, and yenny hugger turned on for patient comfort. 9:24:02 Correct patient and procedure confirmed by team. 9:24:04 - 9:24:09 H&P Date Dictated: 08/05/2019 H&P Addendum completed by physician on day of procedure. (MUST COMPLETE FOR ALL OUTPATIENTS). 9:24:12 Pre-procedure instructions explained to patient. 9:24:12 Pre-op teaching completed and patient verbalized understanding. 9:24:15 Patient NPO since Midnight. 9:24:38 Patient allergic to No known allergies 9:24:40 Is the patient allergic to Iodine/contrast media? No. 9:24:47 Is patient on blood thinner?No 9:24:48 Patient diabetic? No. 9:24:51 - 9:25:17 Left abdomen area was prepped with chlora-prep and draped in sterile fashion 10:24:46 Physician arrived 10:25:47 --------ALL STOP TIME OUT------ 10:26:51 Heparin Flush Bag (1000units/500ml NS) 1 bags added to field was administered by Wang Gamino MD; used for procedure; Verbal order read back and verified. 10:27:36 - 10:27:39 Use device set IR Diagnostic 10:27:41 Bag Decanter () opened to sterile field. 10:27:41 Sterile Angiographic Pack opened to sterile field. 10:27:42 Tegaderm 4 x 4 (1626W) opened to sterile field. 10:27:44 Procedure started. 10:27:44 Full Disclosure recording started 10:31:21 BAG, DRAINAGE EMPTY 600ML W/ALIA ([id number]) opened to sterile field. 10:31:31 Procedure ended.(Physican Out) 10:31:55 Fluoroscopy time 00.50 minutes. 10:32:00 Dose Area Product 53 mGy/cm. 10:32:08 Contrast amount:Isovue 300 12ml. 10:32:59 Insertion/operative site no bleeding no hematoma. 10:33:08 Post Abdominal area:stable, clean and dry 10:33:12 Procedure and supply charges have been captured, reviewed, submitted an d are correct. 10:33:40 Patient transfered to Outpatients with Stretcher. 10:33:43 End room use (Document Last) Device Usage Item Name Manufacture Quantity Catalog Hospital Part Current Minimal Lot# / Number Charge Number Stock Stock Serial# Code Bag Decanter Microtek 1 [id number] 5 () Medical Inc[employer] Sterile Cardinal 1 [id number] 5 Angiographic Health Pack Tegaderm 4 x 3M 1 1626W [id number] 5 4 (1626W) BAG, Merit 1 [id number] 5 DRAINAGE Medical EMPTY 600ML W/ALIA ([id number]) Signature Audit [place] Stage Time Signature Unsigned Intra-Procedure 08/05/2019 KATHRYN CEVALLOS RT 10:34:08 AM (R) [facility] [address] [place] [address]
[2019-08-05 08:37] LABS: BASOPHILS 0.4 % (0-2); EOSINOPHILS 12.5 % (0-7); HEMOGLOBIN 14.4 g/dL (13.5-17.5); IMMATURE GRANULOCYTES 0.2 % (0-5); LYMPHOCYTES 24.6 % (15-50); MCH 29.9 pg (26.0-34.0); MCHC 34.3 g/dL (31.0-37.0); MCV 87.3 fL (80.0-100.0); MEAN PLATELET VOLUME 9.3 fL (7.4-10.4); MONOCYTES 7.7 % (2-11); NEUTROPHILS 54.6 % (40-80); RBC 4.81 10x6/uL (4.20-6.10); RDW 13.3 % (11.5-14.5); WBC 9.1 10x3/uL (4.8-10.8)
[2019-08-05 08:43] LABS: CALC OSMOLALITY 278 mosm/kg (275-300); CALCIUM 8.8 mg/dL (8.5-10.1); CARBON DIOXIDE 28.1 mmol/L (21.0-32.0); CHLORIDE - SERUM 105 mmol/L (98-107); CREATININE - SERUM 0.8 mg/dL (0.6-1.3); GLUCOSE 104 mg/dL (74-106); POTASSIUM - SERUM 4.5 mmol/L (3.5-5.1); SODIUM 140 mmol/L (136-145); UREA NITROGEN 12 mg/dL (7-18); eGFR NON AFRICAN AMERICAN > 90 mL/min (90-120)
[2019-08-05 08:46] LABS: PLATELET COUNT 240 10x3/uL (130-400)
[2019-08-05 08:58] LABS: INR 1.03 (0.85-1.17); PROTIME 13.5 SECONDS (11.6-15.0)
--- NOTE | 2019-08-05 12:02 | NUR ---
1200 IV REMOVED AND PT DISCHARGED TO DR [facility] OFFICE
== END 2019-08-05 12:10 | disposition home or self-care (01) ==
LOC: D.SP 06:17 → D.RAD 09:00 → D.SP 12:10
PROVIDERS: General Practice; ATTEND Surgery
DX: K57.20 Diverticulitis of large intestine with perforation and abscess without bleeding (principal)

== ENCOUNTER 2019-08-20 05:58 | Outpatient (CLI) | payer MEDICAID ==
[~2019-08-20] VITALS: Ht 170.2 cm; Wt 101.4 kg
--- NOTE | ~2019-08-20 | HEMODYNAMI ---
PATIENT:BROOKE JORGE MEDICAL RECORD: [id number] : 83 LOCATION:D.CT ADMISSION DATE: 08/20/19 Generatedon:08/20/20198:23 Patient name: BROOKE JORGE Patient #: [id number] SSN: D OB: 1985 Date of study: 08/20/2019 Page: Of Hemodynamic Procedure Report Patient Data Patient Demographics Procedure consent was obtained First Name: BROOKE Gender: Male Last Name: ANIA : 1985 [facility] Initial: E Age: 34 year(s) Patient #: [id number] Race: Unknown Additional ID: [id number] Contact details Address: [address] [place] [address] AVE State: [place] City: [place] Zip code: [address] Past Medical History Allergies: No known allergies Admission Admission Data Admission Date: 08/20/2019 Admission Time: 5:58 Procedure Procedure Types Cath Procedure Peripheral Cath Diagnostic Procedure Abscess Abscess Drain Injection Procedure Description Procedure Date Procedure Date: 08/20/2019 Procedure Start Time: 8:21 Procedure End Time: 8:23 Procedure Staff Name Function Marcus Vargas MD Performing Physician Osmani Camacho RT Monitor Patricia Self RN Nurse KATHRYN CEVALLOS RT Scrub Procedure Data Cath Procedure Fluoroscopy Diagnostic fluoroscopy Total fluoroscopy Time: 0.3 time: 0.3 min min Contrast Material Contrast Material Type Amount (ml) Isovue 300 5 Hemodynamics Rest Pre Cath Intra NCS Post Cath Procedure Log Time Note 8:07:50 Patricia Self RN sent for patient. Start room use. 8:07:51 Time tracking: Regular hours (M-F 7:00 - 5:00) 8:08:23 Patient received from Outpatients to IR Alert and oriented. Tansferred to table in Supine position. 8:08:26 Signed procedure consent form obtained from patient. 8:08:27 Warm blankets applied, and yenny hugger turned on for patient comfort. 8:08:28 Correct patient and procedure confirmed by team. 8:08:39 8:08:44 H&P Date Dictated: 08/20/2019 H&P Addendum completed by physician on day of procedure. (MUST COMPLETE FOR ALL OUTPATIENTS). 8:08:49 Pre-procedure instructions explained to patient. 8:08:49 Pre-op teaching completed and patient verbalized understanding. 8:08:52 Patient NPO since Midnight. 8:08:58 Patient allergic to No known allergies 8:09:37 IV patent on arrival in left hand with 0.45%NaCl at KVO. 8:09:45 Left abdomen area was prepped with chlora-prep and draped in sterile fashion 8:09:48 8:09:51 Use device set IR Diagnostic 8:09:53 Bag Decanter () opened to sterile field. 8:09:53 Sterile Angiographic Pack opened to sterile field. 8:09:54 Tegaderm 4 x 4 (1626W) opened to sterile field. 8:16:34 8:16:52 Physician arrived 8:18:40 --------ALL STOP TIME OUT------ 8:18:48 Full Disclosure recording started 8:18:50 Procedure started. 8:21:[address] ST[address]OCK 3-Way Large Bore ([id number]) opened to sterile field. 8:21:39 BAG, DRAINAGE EMPTY 600ML W/ALIA ([id number]) opened to sterile field. 8:21:48 Procedure ended.(Physican Out) 8:22:27 Fluoroscopy time 00.30 minutes. 8:22:29 Dose Area Product 5 mGy/cm. 8:22:33 Contrast amount:Isovue 300 5ml. 8:22:46 Post Abdominal area:stable, clean and dry 8:22:49 Procedure and supply charges have been captured, reviewed, submitted and are correct. 8:23:02 See physician's report for complete and final results. 8:23:04 Procedure ended. 8:23:04 Full Disclosure recording stopped 8:23:10 End room use (Document Last) Device Usage Item Name Manufacture Quantity Catalog Hospital Part Current Minimal Lot# / Number Charge Number Stock Stock Serial# Code Bag Decanter Microtek 1 [id number] 5 () Medical Inc. Sterile Cardinal 1 [id number] 5 Angiographic Health Pack Tegaderm 4 x 3M 1 1626W [id number] 5 4 (1626W) [facility] [place] 1 [id number] [id number] 5 [id number] 3-Way Large Bore ([id number]) BAG, Merit 1 [id number] 5 DRAINAGE Medical EMPTY 600ML W/ALIA (NHF689) Signature Audit [place] Stage Time Signature Unsigned Intra-Procedure 08/20/2019 KATHRYN CEVALLOS RT 8:23:25 AM (R) [facility] [address] [place] [address]
[2019-08-20 06:23] LABS: BASOPHILS 0.7 % (0-2); EOSINOPHILS 13.8 % (0-7); HEMATOCRIT 42.9 % (42.0-54.0); HEMOGLOBIN 14.7 g/dL (13.5-17.5); IMMATURE GRANULOCYTES 0.3 % (0-5); LYMPHOCYTES 31.9 % (15-50); MCH 30.3 pg (26.0-34.0); MCHC 34.3 g/dL (31.0-37.0); MCV 88.5 fL (80.0-100.0); MEAN PLATELET VOLUME 8.9 fL (7.4-10.4); MONOCYTES 6.8 % (2-11); NEUTROPHILS 46.5 % (40-80); PLATELET COUNT 270 10x3/uL (130-400); RBC 4.85 10x6/uL (4.20-6.10); RDW 14.1 % (11.5-14.5); WBC 7.6 10x3/uL (4.8-10.8)
[2019-08-20 06:35] LABS: CALC OSMOLALITY 282 mosm/kg (275-300); CALCIUM 8.8 mg/dL (8.5-10.1); CARBON DIOXIDE 28.8 mmol/L (21.0-32.0); CHLORIDE - SERUM 104 mmol/L (98-107); GLUCOSE 108 mg/dL (74-106); POTASSIUM - SERUM 4.3 mmol/L (3.5-5.1); SODIUM 141 mmol/L (136-145); UREA NITROGEN 15 mg/dL (7-18); eGFR NON AFRICAN AMERICAN 90 mL/min (90-120)
[2019-08-20 06:36] LABS: APTT 28.1 SECONDS (22.8-39.4); INR 0.88 (0.85-1.17); PROTIME 11.9 SECONDS (11.6-15.0)
[2019-08-20 07:42] VITALS: BP 132/90; Ht 170.2 cm; Wt 101.4 kg
== END 2019-08-20 08:35 | disposition home or self-care (01) ==
LOC: D.CT 05:58
PROVIDERS: Specialist; ATTEND Surgery
DX: K57.20 Diverticulitis of large intestine with perforation and abscess without bleeding (principal)

== ENCOUNTER 2019-08-23 10:17 | Inpatient (IN) | payer MEDICAID ==
[~2019-08-23] VITALS: Ht 170.2 cm; Wt 101.2 kg
[2019-08-25] VITALS (15 sets, daily range): BP systolic 94–135; BP diastolic 56–89; BMI 35.0
--- NOTE | 2019-08-25 13:44 | NUR ---
RECTUM WASHED WITH BETADINE PRIOR TO PREPPING.
--- NOTE | 2019-08-25 16:45 | NUR ---
PATIENT TO ROOM WITH IV INTACT. NO COMPLAINTS OR SIGNS OF DISRESS AT THIS TIME. VS STABLE. PROVENA WOUND VAC CDI. BSCDS PLACED ON PATIENT AND TURNED ON. PATIENT HAS NO PAIN AT THIS TIME. WILL CONTINUE TO MONITOR. CALL LIGHT WITHIN REACH.
--- NOTE | 2019-08-25 17:25 | NUR ---
PLACED O2 BACK ON AT 1.5 LITERS. SATS 92 WHILE SLEEPING ON RA. CALL LIGHT WITHIN REACH. WILL CONTINUE TO MONITOR. TOLERATED CLEARS WITH NO N/V.
--- NOTE | 2019-08-25 19:30 | NUR ---
PT SITTING UP IN BED WITHOUT DISTRESS. AOX4. IV RIGHT HAND INFUSING D5LR W/ 20K @ 125. MORPHINE AERONAUTICAL INSPECTOR IN USE. PT USING PILLOW TO SPLINT ABD. INCENTIVE SPIROMETER GIVENT PT, EDUCATED ON USE. VERBALIZED UNDERSTANDING. SCDS ON BILAT. MIDLINE INCISION WITH WOUND VAC IN PLACE, CDI. TWO LAP SITES CDI. ENCOURAGED PT TO ATTEMPT TO VOID SOON AND TO START AMBULATING. PT REQUESTED AND GIVEN POPSICLE, CHICKEN BROTH AND ICE WATER. TOLERATING DIET WELL. BOWEL SOUNDS ABSENT. LUNG SOUNDS CTA. DENIES FURTHER NEEDS. CL IN REACH, WILL CTM
--- NOTE | 2019-08-25 19:54 | NUR ---
TAX CLERK SET UP AT THIS TIME BY AND ANASTASIIA OLIVER. MORPHINE 1 MG/Q 10 MIN/ 20 MG LOCKOUT. PATIENT IN BED WITH IV INTACT. VS STABLE. CALL LIGHT WITHN REACH.
--- NOTE | 2019-08-25 23:00 | NUR ---
PT AMBULATED TO BATHROOM TO VOID AND BACK TO BED INDEPENDENTLY. TOLERATED WELL. VERY SORE. SCDS BACK ON ONCE IN BED. POPSICLE GIVEN. DENIES OTHER NEEDS. CL IN REACH, WILL CTM
[2019-08-26 07:51] LABS: ALBUMIN 2.9 g/dL (3.4-5.0); ANION GAP 12.6 mmol/L (8-16); BILIRUBIN - TOTAL 0.4 mg/dL (0.2-1.3); CALCIUM 8.5 mg/dL (8.5-10.1); CARBON DIOXIDE 25.6 mmol/L (21.0-32.0); CREATININE - SERUM 1.2 mg/dL (0.6-1.3); POTASSIUM - SERUM 4.2 mmol/L (3.5-5.1)
[2019-08-26 08:09] LABS: BASOPHILS 0.1 % (0-2); EOSINOPHILS 0 % (0-7); HEMATOCRIT 37.5 % (42.0-54.0); HEMOGLOBIN 12.6 g/dL (13.5-17.5); IMMATURE GRANULOCYTES 0.3 % (0-5); LYMPHOCYTES 6.3 % (15-50); MCH 29.6 pg (26.0-34.0); MCHC 33.6 g/dL (31.0-37.0); MCV 88.2 fL (80.0-100.0); MEAN PLATELET VOLUME 9.5 fL (7.4-10.4); MONOCYTES 6.3 % (2-11); PLATELET COUNT 279 10x3/uL (130-400); RBC 4.25 10x6/uL (4.20-6.10); RDW 13.9 % (11.5-14.5); WBC 14.8 10x3/uL (4.8-10.8)
--- NOTE | 2019-08-26 08:35 | OP ---
PATIENT NAME: BROOKE KELLEY MEDICAL RECORD: [id number] :83 LOCATION:D.MS Ramos2218 ADMISSION DATE:08/25/19 SURGEON: PABLITO DENNIS MD DATE OF OPERATION: 08/25/2019 SURGEON: Pablito Dennis MD PREOPERATIVE DIAGNOSES: 1. History of perforated sigmoid diverticulitis with intra-abdominal abscess. 2. Persistent fistula. 3. Nicotine dependence. POSTOPERATIVE DIAGNOSES: 1. History of perforated sigmoid diverticulitis with intra-abdominal abscess. 2. Persistent fistula. 3. Nicotine dependence. SURGEON: Pablito Dennis MD PROCEDURES PERFORMED: 1. Laparoscopic mobilization of the splenic flexure. 2. Hand-assisted laparoscopic sigmoid colectomy. ANESTHESIA: General. COMPLICATIONS: None. Case was contaminated. ESTIMATED BLOOD LOSS: 75 cc. SPECIMENS: Sigmoid colon. ANESTHESIA: General. OPERATIVE COURSE: After consent was obtained, the patient was taken to the operating room and placed in the supine position on the operating table. Next, general anesthesia was given via endotracheal intubation after a timeout was performed to confirm the correct patient and procedure. The abdomen was prepped and draped in typical sterile fashion. The patient was placed in the lithotomy position. The rectum was prepped and draped in a typical fashion using iodine. An Ioban drape was placed across the abdomen. A low midline incision was made approximately 8-10 cm in the lower midline. Skin was incised with a 10-blade scalpel. After the incision, dissection with electrocautery to the level of linea alba. The linea alba was incised using electrocautery. The peritoneum was grasped with Sarita clamps times 2 and incised with Metzenbaum scissors. Once there is direct visualization of the abdominal cavity, remaining incision was opened with electrocautery. An Zachery Gelport was placed. A trocar was placed through the Gelport. The Gelport was attached to the Zachery Gelport and the abdomen was insufflated. The abdominal cavity was inspected. There was no evidence of bowel injury. No evidence of bleeding. The IR drain through the left lower quadrant was visualized going into the sigmoid mesentery. At this time, 2 additional 5-mm trocars were placed, one into the midline, one into the OPERATIVE REPORT [id number] BROOKE KELLEY left lateral quadrant. At this time, laparoscopic mobilization of splenic flexure was performed. The white line of Toldt was taken down using the Harmonic scalpel and a combination of blunt dissection and Harmonic scalpel dissection was used to mobilize the descending colon off the sidewall along the white line Toldt. At this time, the greater omentum was reflected cephalad. The greater omentum was dissected off the left after the transverse colon. The transverse colon mesentery was dissected from the lesser sac and dissection continued along the left after the transverse colon to the splenic flexure until we had complete mobilization of the splenic flexure. At this time, the laparoscopic instruments were removed. The abdomen was desufflated. The port was removed. The sigmoid colon was extracorporealized through the Zachery retractor. The sigmoid colon was dissected off the pelvic sidewall. The drain was extending into the mesentery. A single loop of small bowel was densely adherent, which was dissected off without serosal injury or defect. At this time, the drain was transected with scissors and removed. The rectosigmoid junction was identified. A mesenteric window was created. The sigmoid colon was transected at the rectosigmoid junction using a linear JUAN RAMON stapler. The mesentery was then dissected with the Harmonic scalpel. At this time, with the sigmoid colon was under tension the superior rectal artery vessels were identified. They were transected with the Harmonic scalpel. For hemostasis, the vessels were grabbed with a right angle clamp and tied off with an 0-silk suture. The left ureter was identified and intact. The sigmoid colon was markedly indurated where the drain had traversed across the sigmoid colon. We worked back to healthy tissue along the left colon. Once we identified healthy tissue with intact mesentery, a second transection was performed using the JUAN RAMON stapler and the sigmoid colon was passed off the field and sent for permanent pathology. At this time, there was adequate length without tension, so a vyns-la-zvci anastomosis was performed to the rectum with the left descending colon. The enterotomies were made with the electrocautery. A bqri-rb-vrab anastomosis was performed using the 75-mm linear JUAN RAMON cutting stapler with a green load staple. The common enterotomy was then closed with a second firing of the linear JUAN RAMON stapler. The staple line was imbricated using 3-0 Vicryl suture. The anastomosis was widely patent. There was minimal to no tension on the anastomosis. The pelvis was copiously irrigated and suctioned. The small bowel was run from the terminal ileum to the ligament of Treitz, again no serosal defects were identified. At this time, all bowel was placed back into the abdomen. The Gelport was placed back on to be retractor. The abdomen was insufflated. From all 4 quadrants the abdominal cavity was inspected with laparoscopy. There was no evidence of bowel injury, no evidence of bleeding. At this time, again, all instruments removed. The Gelport was removed. The trocars were removed. The abdomen was desufflated. The fascia was closed with 0-Prolene suture. The skin was reapproximated with jaiden. A Prevena incisional VAC was placed on the abdomen. At the end of the case, all needle and instrument counts correct. No complications occurred. The patient was extubated and transferred to the PACU in stable condition. TRANSINT:[id number] Voice Confirmation ID: [id number] DOCUMENT ID: [id number] OPERATIVE REPORT [id number] BROOKE KELLEY JAMES J MD at 0835 CC: [id number] DICTATION DATE: 08/25/19 1514 SENIOR GIS ANALYST: 08/26/19 0228 [facility] [place] [id number] [place] [address]
[2019-08-26 09:06] VITALS: BP 100/65
[2019-08-26 12:34] VITALS: BP 109/68
[2019-08-26 17:11] VITALS: BP 126/86
--- NOTE | 2019-08-26 18:51 | NUR ---
REMAINS WITHOUT DISTRESS. AMBULATED IN HALLS TODAY. NO BM,STATES NOT PASSING GAS.CONT PLAN OF CARE
[2019-08-26 19:30] VITALS: BP 117/66
[2019-08-27 00:30] VITALS: BP 108/65
[2019-08-27 05:30] VITALS: BP 125/78
[2019-08-27 07:02] LABS: BASOPHILS 0.1 % (0-2); EOSINOPHILS 2.4 % (0-7); HEMATOCRIT 36.2 % (42.0-54.0); HEMOGLOBIN 11.9 g/dL (13.5-17.5); IMMATURE GRANULOCYTES 0.3 % (0-5); LYMPHOCYTES 14.2 % (15-50); MCH 29.3 pg (26.0-34.0); MCHC 32.9 g/dL (31.0-37.0); MCV 89.2 fL (80.0-100.0); MEAN PLATELET VOLUME 9.5 fL (7.4-10.4); MONOCYTES 6.1 % (2-11); NEUTROPHILS 76.9 % (40-80); PLATELET COUNT 237 10x3/uL (130-400); RBC 4.06 10x6/uL (4.20-6.10); RDW 14.6 % (11.5-14.5); WBC 11.3 10x3/uL (4.8-10.8)
[2019-08-27 07:11] LABS: CALC OSMOLALITY 274 mosm/kg (275-300); CALCIUM 8.6 mg/dL (8.5-10.1); CARBON DIOXIDE 28.9 mmol/L (21.0-32.0); CHLORIDE - SERUM 103 mmol/L (98-107); CREATININE - SERUM 0.9 mg/dL (0.6-1.3); GLUCOSE 90 mg/dL (74-106); POTASSIUM - SERUM 4.1 mmol/L (3.5-5.1); SODIUM 138 mmol/L (136-145); UREA NITROGEN 10 mg/dL (7-18); eGFR NON AFRICAN AMERICAN > 90 mL/min (90-120)
--- NOTE | 2019-08-27 07:32 | NUR ---
NO TX GIVEN PT WALKING IN ADLER
[2019-08-27 09:39] VITALS: BP 117/81
--- NOTE | 2019-08-27 10:30 | NUR ---
ASSESSMENT PER FLOW SHEET. PT IS WITHOUT DISTRESS.CALL LIGHT IN REACH.
[2019-08-27 13:20] VITALS: BP 111/74
[2019-08-27 16:28] VITALS: BP 122/83
--- NOTE | 2019-08-27 16:28 | NUR ---
HAS WALKED IN HALLS TWICE. TOLERATING CLEAR LIQUIDS.
[2019-08-27 20:00] VITALS: BP 136/87
[2019-08-28 01:39] VITALS: BP 113/73
[2019-08-28 06:02] VITALS: BP 127/77
[2019-08-28 06:39] LABS: BASOPHILS 0.1 % (0-2); EOSINOPHILS 4.9 % (0-7); HEMATOCRIT 38.7 % (42.0-54.0); HEMOGLOBIN 12.9 g/dL (13.5-17.5); IMMATURE GRANULOCYTES 0.2 % (0-5); LYMPHOCYTES 12.6 % (15-50); MCH 29.5 pg (26.0-34.0); MCHC 33.3 g/dL (31.0-37.0); MCV 88.4 fL (80.0-100.0); MEAN PLATELET VOLUME 9.3 fL (7.4-10.4); MONOCYTES 7.4 % (2-11); NEUTROPHILS 74.8 % (40-80); PLATELET COUNT 245 10x3/uL (130-400); RBC 4.38 10x6/uL (4.20-6.10); RDW 13.9 % (11.5-14.5); WBC 13.5 10x3/uL (4.8-10.8)
[2019-08-28 06:49] LABS: CALC OSMOLALITY 265 mosm/kg (275-300); CALCIUM 8.9 mg/dL (8.5-10.1); CARBON DIOXIDE 30.1 mmol/L (21.0-32.0); CHLORIDE - SERUM 98 mmol/L (98-107); CREATININE - SERUM 0.9 mg/dL (0.6-1.3); GLUCOSE 97 mg/dL (74-106); POTASSIUM - SERUM 4.1 mmol/L (3.5-5.1); SODIUM 134 mmol/L (136-145); UREA NITROGEN 8 mg/dL (7-18); eGFR NON AFRICAN AMERICAN > 90 mL/min (90-120)
--- NOTE | 2019-08-28 08:45 | NUR ---
PATIENT IN BED WITH IV INTACT. STATES IS PAIN IS 10/10. GOT UP TO BR AND BACK TO BED. MEDS GIVEN, LINE ASSEMBLER AIRCRAFT REFILLED. FAMILY AT BEDSIDE. CALL LIGHT WITHIN REACH.
[2019-08-28 08:53] VITALS: BP 117/81
[2019-08-28 12:57] VITALS: BP 108/67
[2019-08-28 16:47] VITALS: BP 124/68
--- NOTE | 2019-08-28 18:45 | NUR ---
PATIENT AMBULATED IN HALLS TWICE TODAY WITH NO PROBLEMS. STATED NOW PASSING GAS. IV INTACT. FAMILY AT BEDSIDE. CALL LIGHT WITHIN REACH.
[2019-08-28 20:00] VITALS: BP 126/93
[2019-08-29] VITALS: BP 120/77
[2019-08-29 04:00] VITALS: BP 132/84
[2019-08-29 06:40] LABS: BASOPHILS 0.1 % (0-2); EOSINOPHILS 7.9 % (0-7); HEMATOCRIT 35.9 % (42.0-54.0); IMMATURE GRANULOCYTES 0.2 % (0-5); LYMPHOCYTES 10.6 % (15-50); MCH 29.3 pg (26.0-34.0); MCHC 33.4 g/dL (31.0-37.0); MCV 87.6 fL (80.0-100.0); MEAN PLATELET VOLUME 9.2 fL (7.4-10.4); MONOCYTES 8.5 % (2-11); NEUTROPHILS 72.7 % (40-80); PLATELET COUNT 255 10x3/uL (130-400); RDW 13.8 % (11.5-14.5)
[2019-08-29 06:44] LABS: CALC OSMOLALITY 273 mosm/kg (275-300); CALCIUM 8.5 mg/dL (8.5-10.1); CARBON DIOXIDE 29.2 mmol/L (21.0-32.0); CHLORIDE - SERUM 101 mmol/L (98-107); CREATININE - SERUM 0.9 mg/dL (0.6-1.3); GLUCOSE 109 mg/dL (74-106); POTASSIUM - SERUM 4.2 mmol/L (3.5-5.1); SODIUM 137 mmol/L (136-145); UREA NITROGEN 9 mg/dL (7-18); eGFR NON AFRICAN AMERICAN > 90 mL/min (90-120)
[2019-08-29 08:34] VITALS: BP 145/98
--- NOTE | 2019-08-29 10:30 | NUR ---
PATIENT AMBULATED IN HALLWAY AT THIS TIME. IV INTACT. NO PROBLEMS AT THIS TIME.
[2019-08-29 12:19] VITALS: BP 124/72
--- NOTE | 2019-08-29 13:56 | NUR ---
PATIENT TOLERATED FULL LIQUID DIET WITH NO N/V OR INCREASED PAIN. WANTS TO TRY REGULAR FOOD. EXPLAINED TO TAKE SMALL AMOUNT SLOWLY. STATED HE WAS GOING TO TRY TO EAT A FEW BAKED CHIPS AND SEE IF HE DID OK. NO COMPLAINTS OR SIGNS OF DISTRESS AT THIS TIME. IV INTACT. CALL LIGHT WITHIN REACH.
[2019-08-29 16:35] VITALS: BP 109/68
--- NOTE | 2019-08-29 18:22 | NUR ---
PATIENT UP AMBULATING IN ADLER AGAIN AT THIS TIME. TOLERATED REGULAR DIET WITH NO PROBLEMS. IV INTACT. CALL LIGHT WITHIN REACH.
[2019-08-29 20:00] VITALS: BP 119/77
[2019-08-30] VITALS: BP 128/80
[2019-08-30 04:00] VITALS: BP 139/94
[2019-08-30 06:58] LABS: CALC OSMOLALITY 277 mosm/kg (275-300); CALCIUM 8.9 mg/dL (8.5-10.1); CARBON DIOXIDE 26.9 mmol/L (21.0-32.0); CHLORIDE - SERUM 103 mmol/L (98-107); CREATININE - SERUM 0.8 mg/dL (0.6-1.3); GLUCOSE 85 mg/dL (74-106); POTASSIUM - SERUM 4.6 mmol/L (3.5-5.1); SODIUM 139 mmol/L (136-145); UREA NITROGEN 14 mg/dL (7-18); eGFR NON AFRICAN AMERICAN > 90 mL/min (90-120)
[2019-08-30 07:13] LABS: BASOPHILS 0.3 % (0-2); HEMATOCRIT 35.7 % (42.0-54.0); HEMOGLOBIN 11.9 g/dL (13.5-17.5); IMMATURE GRANULOCYTES 0.3 % (0-5); LYMPHOCYTES 16.6 % (15-50); MCH 29.3 pg (26.0-34.0); MCHC 33.3 g/dL (31.0-37.0); MCV 87.9 fL (80.0-100.0); MEAN PLATELET VOLUME 9.3 fL (7.4-10.4); MONOCYTES 9.8 % (2-11); RBC 4.06 10x6/uL (4.20-6.10); RDW 13.9 % (11.5-14.5)
[2019-08-30 07:18] LABS: PLATELET COUNT 309 10x3/uL (130-400)
--- NOTE | 2019-08-30 08:10 | NUR ---
ALERT AND ORIENTED X4. IV INFILTRATED TO RT. HAND AND DISCONTINUED. WOUND VAC INTACT TO LOWER ABDOMEN WITH BOWEL SOUNDS INTACT. UP ADLIB. LUNGS CTA AND HRRR. ENCOURAGED TO USE CALL LGHT FOR ASSIST.
[2019-08-30 10:19] VITALS: BP 126/86
[2019-08-30 12:45] VITALS: BP 136/85
[2019-08-30 14:13] VITALS: Ht 170.2 cm; Wt 101.2 kg
[2019-08-30 17:15] VITALS: BP 150/101
--- NOTE | 2019-08-30 19:55 | NUR ---
PT LYING IN BED WITH FRIEND AT BEDSIDE, PT STATED HE NEEDS HIS NORCO AND THAT HE HAS ASKDE ALL DAY FOR IT BUT HAS ONLY BEEN GIVEN TORADOL. ADMINISTERED PRN PAIN MEDICATION WITH PT SCXHEDULED MEDS, PT THEN UNHOOKED HIS WV AND WENT OUTSIDE. NO S/SX OF DISTRESS, CONTINUE WITH PLAN OF CARE
[2019-08-30 20:47] VITALS: BP 151/103
--- NOTE | 2019-08-30 22:56 | NUR ---
PT LYING IN BED, HAD JUST RETURNED FROM BEING OUTSIDE AND ORDERED PIZZA FOR DINNER. NO S/SX OF DISTRESS, CL IN REACH CONTINUE WITH PLAN OF CARE
--- NOTE | 2019-08-30 23:47 | NUR ---
I have reviewed this patient and I concur with the Shift Assessment completed by the Licensed Practical Nurse today this shift.
--- NOTE | 2019-08-30 23:57 | NUR ---
PT LAYING IN BED, FAMILY AT BEDISDE. NO SIGNS OF DISTRESS. PT DENIES ANY PAIN OR NEEDS AT THIS TIME. CL IN REACH, BED IN LOWEST POSITION.
[2019-08-31] VITALS (14 sets, daily range): BP systolic 119–160; BP diastolic 77–106
--- NOTE | 2019-08-31 07:47 | NUR ---
AWAKE AND ALERT. ORIENTED X3. LUNGS ARE CLEAR BILATERALLY, NO COUGH NOTED. SKIN IS INTACT WITHOUT REDNESS EXCEPT INCISION TO MID ABDOMEN WHICH HAS A WOUND VAC IN PLACE WITH NO OUTPUT. IV TO LEFT FOREARM IS PATENT WITHOUT REDNESS AT INSERTION SITE. DENIES NEEDS.
[2019-08-31 08:32] LABS: BASOPHILS 0.3 % (0-2); EOSINOPHILS 7.8 % (0-7); HEMATOCRIT 33.6 % (42.0-54.0); HEMOGLOBIN 11.2 g/dL (13.5-17.5); IMMATURE GRANULOCYTES 0.4 % (0-5); LYMPHOCYTES 13.3 % (15-50); MCH 29.4 pg (26.0-34.0); MCHC 33.3 g/dL (31.0-37.0); MCV 88.2 fL (80.0-100.0); MEAN PLATELET VOLUME 9.2 fL (7.4-10.4); MONOCYTES 7.9 % (2-11); NEUTROPHILS 70.3 % (40-80); PLATELET COUNT 334 10x3/uL (130-400); RBC 3.81 10x6/uL (4.20-6.10); RDW 13.9 % (11.5-14.5); WBC 9.8 10x3/uL (4.8-10.8)
[2019-08-31 08:48] LABS: CALC OSMOLALITY 286 mosm/kg (275-300); CALCIUM 8.7 mg/dL (8.5-10.1); CARBON DIOXIDE 28.4 mmol/L (21.0-32.0); CHLORIDE - SERUM 107 mmol/L (98-107); CREATININE - SERUM 0.9 mg/dL (0.6-1.3); GLUCOSE 105 mg/dL (74-106); POTASSIUM - SERUM 4.6 mmol/L (3.5-5.1); SODIUM 143 mmol/L (136-145); UREA NITROGEN 19 mg/dL (7-18); eGFR NON AFRICAN AMERICAN > 90 mL/min (90-120)
--- NOTE | 2019-08-31 12:50 | NUR ---
REQUESTED AND GIVNE ONE HYDROCODONE PO FOR C/O ABDOMINAL PAIN LEVEL 8. WILL MONITOR.
--- NOTE | 2019-08-31 13:05 | NUR ---
OFF UNIT VIA FOR CT.
--- NOTE | 2019-08-31 13:20 | NUR ---
RETURNED FROM CT SCAN. LUNCH SERVED IN ROOM.
--- NOTE | 2019-08-31 16:45 | NUR ---
OFF UNIT VIA BED FOR SURGERY.
--- NOTE | 2019-08-31 19:46 | NUR ---
KIZZY DRAIN #1 WITH 30 CC OUTPUT KIZZY DRAIN #2 WITH 25 CC OUTPUT
--- NOTE | 2019-09-01 04:46 | NUR ---
I have reviewed this patient and I concur with the Shift Assessment completed by the Licensed Practical Nurse today this shift.
[2019-09-01 05:10] VITALS: BP 143/98
[2019-09-01 08:02] VITALS: BP 140/98
--- NOTE | 2019-09-01 08:05 | NUR ---
RESTING IN BED, NO DISTRESS NOTED, IV INFUSING, CLOSTOMY IN PLACE AND 2 KIZZY DRAINS, CONT TO MONITOR PAIN, O2 PER NC
--- NOTE | 2019-09-01 08:05 | OP ---
PATIENT NAME: BROOKE KELLEY MEDICAL RECORD: [id number] :83 LOCATION:D.MS [id number] ADMISSION DATE:08/25/19 SURGEON: PABLITO DENNIS MD DATE OF OPERATION: 08/31/2019 SURGEON: Pablito Dennis MD PREOPERATIVE DIAGNOSES: 1. Anastomotic leak. 2. Intraabdominal abscess. 3. History of perforated diverticulitis. POSTOPERATIVE DIAGNOSES: 1. Anastomotic leak. 2. Intraabdominal abscess. 3. History of perforated diverticulitis. PROCEDURE PERFORMED: Laparotomy, drainage of intra-abdominal abscess, resection of colorectal anastomosis with creation of end colostomy. ANESTHESIA: General. COMPLICATIONS: None. SPECIMENS: Descending colon. Case was grossly contaminated. ESTIMATED BLOOD LOSS: 200 cc. OPERATIVE COURSE: After consent was obtained, the patient was taken to the operating room and placed in the supine position on the operating table. Next, general anesthesia was given via endotracheal intubation after a timeout was performed to confirm the correct patient and procedure. The abdomen was prepped and draped in typical sterile fashion. An outpatient dressing was placed. A previous midline incision was opened using a 15 blade scalpel. Blunt dissection continued through the subcutaneous tissue. The Prolene closing suture was identified. It was teased with a right angle clamp and then cut with scissors. Remaining portion of the Prolene suture was gently removed using right angles. Using a right angle dissecting and scissors until the incision was opened. At this time, a pool sucker was placed in the abdomen and fluid was collected in the Lukens trap and sent for microbiology. There is approximately 200 cc of purulent fluid noted within the pelvis and the cultures were collected. Copious irrigation again was performed with 2 liters of warm normal saline. An Zachery wound retractor was placed into the abdominal cavity. The small bowel was mobilized and retracted towards the right upper quadrant. The colorectal anastomosis was identified. There was near full anastomotic breakdown of the colorectal anastomosis. The descending colon appeared necrotic and devascularized. The anastomosis was dissected, the rectal stump was closed using 0 Prolene suture. The distal colon was resected at healthy margins. The specimen was sent for pathology. The Prolene sutures, placed to close the end colostomy. The remaining portion was copiously irrigated and suctioned. There were multiple loops of small bowel that were densely adherent to the colorectal anastomosis. These bowel loops were meticulously inspected. Several serosal defects were closed using 3-0 Vicryl suture and the abdomen was again copiously irrigated and suctioned. There was adequate length at this time to perform an end colostomy. The tissue was markedly indurated and thickened and not amenable OPERATIVE REPORT [id number] SAHARALIZETTEBROOKE E to reanastomosis. A spot was identified in the left lateral quadrant. The skin was grabbed with a Riley clamp. The skin was excised with a 15 blade scalpel. Subcutaneous tissues dissected with electrocautery. The external oblique fascia was identified. A cruciate incision was made. The rectus muscles were gently split with a blunt Sarita clamp. The peritoneum was then incised with electrocautery. A Monroe was placed through the fascial defect and sutured into the descending colostomy and was grasped and delivered through the fascial defect at the skin of the small bowel. At this time, the abdomen was again irrigated and suctioned with an additional 2 liters normal saline. The rectal stump was healthy and viable. A long Prolene suture was placed for identification. The small bowel was run from the ligament of Treitz to the terminal ileum on 2 occasions inspecting the bowel for any serosal defects. No additional serosal defects were identified. There was no evidence of bowel injury. No evidence of leak. Two KIZZY drains were then placed. A KIZZY drain left lower quadrant was placed into the left pericolic gutter and KIZZY drain in the right lower quadrant was placed in the deep pelvis. At this time, the fascia was closed with #1 looped PDS. The skin was reapproximated with skin jaiden. Telfa strips were placed as kieran in the midline incision and covered with dry gauze dressings. At this time, the colostomy was created using 3-0 Vicryl suture. At the end of the case, all needle and instrument counts were correct. No complications occurred. The patient was extubated and transferred to the PACU in stable condition. TRANSINT:[id number] Voice Confirmation ID: [id number] DOCUMENT ID: [id number] PABLITO DENNIS MD at 0805 CC: [id number] DICTATION DATE: 08/31/191915 MOLDED PARTS INSPECTOR: 09/01/19 0328 ADM IN [facility] [address] [place] [address]
[2019-09-01 09:23] LABS: BASOPHILS 0.1 % (0-2); CALCIUM 8.3 mg/dL (8.5-10.1); CHLORIDE - SERUM 105 mmol/L (98-107); CREATININE - SERUM 0.8 mg/dL (0.6-1.3); EOSINOPHILS 0 % (0-7); HEMOGLOBIN 12.8 g/dL (13.5-17.5); IMMATURE GRANULOCYTES 0.4 % (0-5); LYMPHOCYTES 4.9 % (15-50); MCH 29.4 pg (26.0-34.0); MCHC 33.7 g/dL (31.0-37.0); MCV 87.4 fL (80.0-100.0); MEAN PLATELET VOLUME 8.7 fL (7.4-10.4); MONOCYTES 5.8 % (2-11); NEUTROPHILS 88.8 % (40-80); POTASSIUM - SERUM 4.6 mmol/L (3.5-5.1); RBC 4.35 10x6/uL (4.20-6.10); RDW 14.1 % (11.5-14.5); SODIUM 138 mmol/L (136-145); eGFR NON AFRICAN AMERICAN > 90 mL/min (90-120)
[2019-09-01 09:26] LABS: CALC OSMOLALITY 279 mosm/kg (275-300); GLUCOSE 177 mg/dL (74-106); UREA NITROGEN 13 mg/dL (7-18)
[2019-09-01 09:36] LABS: PLATELET COUNT 449 10x3/uL (130-400); WBC 16.1 10x3/uL (4.8-10.8)
[2019-09-01 13:25] VITALS: BP 140/94
[2019-09-01 17:56] VITALS: BP 144/79
[2019-09-01 20:40] VITALS: BP 100/52
[2019-09-01 20:52] VITALS: BP 140/81
[2019-09-02 00:16] VITALS: BP 120/80
--- NOTE | 2019-09-02 04:01 | NUR ---
PT RESTING IN BED. EYES CLOSED. NO SIGNS OF DISTRESS. BREATHING EVEN AND UNLABORED. IV SITE LT FA DRESSING CLEAN DRY AND INTACT. NO SIGNS OF INFECTION OR INFULTRATION. 2LO2 NASAL CANNULA. ABD DISTENDED. MIDLINE INSICION DRESSING CLEAN DRY AND INTACT. TADEO IN PLACE. KIZZY DRAIN CLEAN DRY AND INTACT. COLOSTOMY LT LOWER ABD. WILL CONTINUE PLAN OF CARE. CALL LIGHT IN REACH. BED LOWERED AND LOCKED.
[2019-09-02 04:12] VITALS: BP 132/85
--- NOTE | 2019-09-02 04:16 | NUR ---
I have reviewed this patient and I concur with the Shift Assessment completed by the Licensed Practical Nurse today this shift.
[2019-09-02 07:04] LABS: CALC OSMOLALITY 275 mosm/kg (275-300); CALCIUM 8.7 mg/dL (8.5-10.1); CARBON DIOXIDE 27.5 mmol/L (21.0-32.0); CHLORIDE - SERUM 104 mmol/L (98-107); CREATININE - SERUM 0.8 mg/dL (0.6-1.3); POTASSIUM - SERUM 4.8 mmol/L (3.5-5.1); SODIUM 137 mmol/L (136-145); UREA NITROGEN 15 mg/dL (7-18); eGFR NON AFRICAN AMERICAN > 90 mL/min (90-120)
[2019-09-02 07:05] LABS: GLUCOSE 122 mg/dL (74-106)
[2019-09-02 07:41] LABS: BASOPHILS 0.1 % (0-2); EOSINOPHILS 2.6 % (0-7); HEMATOCRIT 35.5 % (42.0-54.0); HEMOGLOBIN 11.6 g/dL (13.5-17.5); IMMATURE GRANULOCYTES 0.4 % (0-5); LYMPHOCYTES 7.3 % (15-50); MCH 29.1 pg (26.0-34.0); MCHC 32.7 g/dL (31.0-37.0); MEAN PLATELET VOLUME 9.1 fL (7.4-10.4); MONOCYTES 5.1 % (2-11); NEUTROPHILS 84.5 % (40-80); PLATELET COUNT 455 10x3/uL (130-400); RBC 3.99 10x6/uL (4.20-6.10); RDW 14.3 % (11.5-14.5); WBC 14.8 10x3/uL (4.8-10.8)
[2019-09-02 08:47] VITALS: BP 158/90
--- NOTE | 2019-09-02 08:50 | NUR ---
PATIENT IN BED WITH IV INTACT. STATES HE IS IN PAIN. CHANGED CIRCULATION REPRESENTATIVE OUT. EXPLAINED TO PATIENT THAT HE NEEDED TO GET UP AND AMBULATE TODAY WHEN HIS PAIN IS UNDER CONTROL. VERBALIZED UNDERSTANDING. CALL LIGHT WITHIN REACH.
--- NOTE | 2019-09-02 10:45 | NUR ---
NUTRITION F/U PT REMAINS NPO. S/P PICC LINE PLACEMENT. MAY BENEFIT FROM PROCALAMINE OR TPN IF UNABLE TO START PO IN 24 [address] FOLLOWING
[2019-09-02 12:55] VITALS: BP 123/78
--- NOTE | 2019-09-02 15:00 | NUR ---
PATIENT AMBULATED IN [place] WITH PT.
[2019-09-02 15:15] LABS: MAGNESIUM - SERUM 1.8 mg/dL (1.8-2.4); PHOSPHOROUS 3.2 mg/dL (2.5-4.9)
[2019-09-02 16:35] VITALS: BP 153/90
--- NOTE | 2019-09-02 18:45 | NUR ---
PATIENT IN BED WITH IV INTACT. NO COMPLAINTS OR SIGNS OF DISTRESS. ADRIAN BLOOD FOR VANC TROUGH FROM PICC LINE. SL TO LEFT FA CDI. WAITING FOR TPN ORDERS FOR PICC. FAMILY AT BEDSIDE. CALL LIGHT WITHN REACH.
[2019-09-02 20:00] VITALS: BP 114/86
[2019-09-03] VITALS: BP 122/87
--- NOTE | 2019-09-03 03:50 | NUR ---
PT RESTING IN BED. EYES CLOSED. NO SIGNS OF DISTRESS. BREATHING EVEN AND UNLABORED. IV SITE LT FA X2 DRESSING CLEAN DRY AND INTACT. NO SIGNS OF INFECTION OR INFULTRATION. 2LO2 NASAL CANNULA. ABD DRESSING CLEAN DRY AND INTACT. KIZZY DRAINS X2. COLOSTOMY LT LOWER ABD. SCDS ON. TADEO IN PLACE. CLEAN DRY AND INTACT. WILL CONTINUE PLAN OF CARE. CALL LIGHT IN REACH. BED LOWERED AND LOCKED. BED RAILS UPX2.
[2019-09-03 04:00] VITALS: BP 143/97
--- NOTE | 2019-09-03 04:36 | NUR ---
I have reviewed this patient and I concur with the Shift Assessment completed by the Licensed Practical Nurse today this shift.
[2019-09-03 06:10] LABS: BASOPHILS 0.2 % (0-2); EOSINOPHILS 4.6 % (0-7); HEMATOCRIT 29.5 % (42.0-54.0); HEMOGLOBIN 9.5 g/dL (13.5-17.5); IMMATURE GRANULOCYTES 0.4 % (0-5); LYMPHOCYTES 10.1 % (15-50); MCH 28.8 pg (26.0-34.0); MCHC 32.2 g/dL (31.0-37.0); MCV 89.4 fL (80.0-100.0); MEAN PLATELET VOLUME 8.8 fL (7.4-10.4); MONOCYTES 5.9 % (2-11); NEUTROPHILS 78.8 % (40-80); PLATELET COUNT 501 10x3/uL (130-400); RDW 14.5 % (11.5-14.5); WBC 12.4 10x3/uL (4.8-10.8)
[2019-09-03 06:32] LABS: CALC OSMOLALITY 280 mosm/kg (275-300); CALCIUM 8.1 mg/dL (8.5-10.1); CARBON DIOXIDE 29.4 mmol/L (21.0-32.0); CHLORIDE - SERUM 104 mmol/L (98-107); CREATININE - SERUM 0.8 mg/dL (0.6-1.3); GLUCOSE 116 mg/dL (74-106); POTASSIUM - SERUM 4.4 mmol/L (3.5-5.1); SODIUM 139 mmol/L (136-145); UREA NITROGEN 17 mg/dL (7-18); eGFR NON AFRICAN AMERICAN > 90 mL/min (90-120)
[2019-09-03 08:17] VITALS: BP 145/89
--- NOTE | 2019-09-03 08:30 | MORECARE ---
CASE MANAGEMENT DISCHARGE SUMMARY PATIENT: BROOKE KELLEY UNIT: [id number] ADM DATE: 08/25/19 AGE: 34 : 84 SEX: M ROOM/BED: D.2218 AUTHOR: PAT WANG PHYSICIAN: REFERRING PHYSICIAN: PABLITO DENNIS MD DATE OF SERVICE: 09/03/19 Discharge Plan Patient Name: BROOKE KELLEY Facility: [facility]:[place] : 1985 Planned Disposition: Home or Self Care Anticipated Discharge Date: Discharge Date: Expected LOS: Initial Reviewer: [email or web address] Initial Review Date: 08/25/2019 Generated: 09/03/19 9:30 am Comments DCP- Discharge Planning Updated by [email or web address]: Calista Garcia on 09/03/19 7:[address] Patient Name: BROOKE KELLEY Admission Status: Elective Accout number: [id number] Admission Date: 08-25-2019 : 1985 Admission Diagnosis: Attending: PABLITO DENNIS Current LOS: 9 Anticipated DC Date: Planned Disposition: Home or Self Care [place] [employer] Discharge Planning Comments: CM met with patient to complete initial dc planning assessment. CM educated patient on the CM role and verbal consent given by patient to complete assessment. Patient lives at home with friends where he stated he was independent with his care. At discharge patient plans to return there and feels this is a safe discharge. His will be his driver manager home. CM discussed availability of home health, rehab services, and medical equipment. He had care iv in the past, but he states he is not current with them. He has a new colostomy and will need supplies and home health, but he does not have a PCP. Patient denied known discharge needs at this time. CM will continue to follow and will assist as needed with dc plans/needs. Director Security Management: Calista Garcia DCP- Discharge Planning Updated by [email or web address]: Calista Garcia on 08/31/19 11:[address] attempted to see patient this am @ 08/31/19 8:50 and patient was not in his room, will attempt to see at a later time DCPIA - Discharge Planning Initial Assessment Updated by [email or web address]: Calista Garcia on 09/03/19 8:26 am * Is the patient Alert and Oriented? Yes * How many steps to enter\exit or inside your home? * PCP NONE * [facility] * Preadmission Environment Home with Family * ADLs Independent * Equipment Other * Other Equipment IV STAND * List name and contact numbers for known caregivers / representatives who currently or will assist patient after discharge: REMI [phone] * Verbal permission to speak to the caregivers and representatives has been obtained from the patient. N/A * Community resources currently utilized None * Please name any agencies selected above. [facility] IN THE PAST * Additional services required to return to the preadmission environment? Yes * Can the patient safely return to the preadmission environment? Yes * Has this patient been hospitalized within the prior 30 days at any hospital? No Patient Name: BROOKE KELLEY Page [phone] at 0830 All edits/amendments must be made on the electronic document DICTATION DATE: 09/03/19829 APPARATUS CLEANER: EVERTON 09/03/19829 RPT#: [id number] DC DATE: STATUS: ADM IN [facility] [address] [place] [address] END OF REPORT
--- NOTE | 2019-09-03 11:34 | NUR ---
Information booklet provided to pt yesterday by primary RN. Wound care visited today for follow up. Pt/spouse had no questions or comments. Encouraged them to read the booklet and jot down any questions they may have. Understanding was voiced. Pts stoma is located on LLQ and is red and shiny. It measures 1-1/2" and has small to medium output. Once pt is d/c'd he will require ostomy change kits, skin protector wipes, stoma paste and powder in order to properly care for his colostomy and surrounding skin. Wound care will monitor.
[2019-09-03 11:52] VITALS: BP 157/99
--- NOTE | 2019-09-03 15:28 | MORECARE ---
CASE MANAGEMENT DISCHARGE SUMMARY PATIENT: BROOKE KELLEY UNIT: [id number] ADM DATE: 08/25/19 AGE: 34 : 84 SEX: M ROOM/BED: D.2218 AUTHOR: PAT WANG PHYSICIAN: REFERRING PHYSICIAN: PABLITO DENNIS MD DATE OF SERVICE: 09/03/19 Discharge Plan Patient Name: BROOKE KELLEY Facility: [facility]:[place] : 1985 Planned Disposition: Home or Self Care Anticipated Discharge Date: Discharge Date: Expected LOS: Initial Reviewer: [email or web address] Initial Review Date: 08/25/2019 Generated: 09/03/19 4:27 pm Comments DCP- Discharge Planning Updated by [id number]: Calista Garcia on 09/03/19 2:[address] [facility] WITH WOUND CARE IS TO ASSESS THE PATIENTS OSTOMY NEEDS FOR HOME DCP- Discharge Planning Updated by [email or web address]: Calista Garcia on 09/03/19 7:[address] Patient Name: BROOKE KELLEY Admission Status: Elective Accout number: [id number] Admission Date: 08-25-2019 : 1985 Admission Diagnosis: Attending: PABLITO DENNIS Current LOS: 9 Anticipated DC Date: Planned Disposition: Home or Self Care Primary Insurance: [place] [employer] [facility] Discharge Planning Comments: CM met with patient to complete initial dc planning assessment. CM educated patient on the CM role and verbal consent given by patient to complete assessment. Patient lives at home with friends where he stated he was independent with his care. At discharge patient plans to return there and feels this is a safe discharge. His will be his hook up driver home. CM discussed availability of home health, rehab services, and medical equipment. He had care iv in the past, but he states he is not current with them. He has a new colostomy and will need supplies and home health, but he does not have a PCP. Patient denied known discharge needs at this time. CM will continue to follow and will assist as needed with dc plans/needs. Area Field Person: Calista Garcia DCP- Discharge Planning Updated by [email or web address]: Calista Garcia on 08/31/19 11:[address] attempted to see patient this am @ 08/31/19 8:50 and patient was not in his room, will attempt to see at a later time DCPIA - Discharge Planning Initial Assessment Updated by [email or web address]: Calista Garcia on 09/03/19 8:26 am * Is the patient Alert and Oriented? Yes * How many steps to enter\exit or inside your home? * PCP NONE * [facility] * Preadmission Environment Home with Family * ADLs Independent * Equipment Other * Other Equipment IV STAND * List name and contact numbers for known caregivers / representatives who currently or will assist patient after discharge: REMI [phone] * Verbal permission to speak to the caregivers and representatives has been obtained from the patient. N/A * Community resources currently utilized None * Please name any agencies selected above. [facility] IN THE PAST * Additional services required to return to the preadmission environment? Yes * Can the patient safely return to the preadmission environment? Yes * Has this patient been hospitalized within the prior 30 days at any hospital? No Last DP export: 09/03/19 7:30 a Patient Name: BROOKE KELLEY Page [phone] at 1528 All edits/amendments must be made on the electronic document DICTATION DATE: 09/03/191527 RENDERING EQUIPMENT TENDER: EVERTON 09/03/191527 RPT#: [id number] DC DATE: STATUS: ADM IN [facility] [address] [place] [address] END OF REPORT
[2019-09-03 17:00] VITALS: BP 158/98
[2019-09-03 20:00] VITALS: BP 152/88
--- NOTE | 2019-09-04 03:25 | NUR ---
PT RESTING IN BED. EYES CLOSED. NO SIGNS OF DISTRESS. BREATHING EVEN AND UNLABORED. IV SITE LT FA DRESSING CLEAN DRY AND INTACT. NO SIGNS OF INFECITON OR INFULTRATION. RT UPPER ARM PICC. DRESSING CLEAN DRY AND INTACT. LUNG SOUNDS CLEAR. ABD MIDLINE INCISION DRESSING CLEAN DRY AND INTACT. COLOSTOMY LT LOWER ABD. WILL CONTINUE PLAN OF CARE. CALL LIGHT IN REACH. BED LOWERED AND LOCKED.
[2019-09-04 04:00] VITALS: BP 143/85
--- NOTE | 2019-09-04 04:00 | NUR ---
I have reviewed this patient and I concur with the Shift Assessment completed by the Licensed Practical Nurse today this shift.
[2019-09-04 06:19] LABS: CALC OSMOLALITY 272 mosm/kg (275-300); CALCIUM 8.7 mg/dL (8.5-10.1); CHLORIDE - SERUM 101 mmol/L (98-107); CREATININE - SERUM 0.7 mg/dL (0.6-1.3); GLUCOSE 133 mg/dL (74-106); MAGNESIUM - SERUM 1.8 mg/dL (1.8-2.4); PHOSPHOROUS 3.5 mg/dL (2.5-4.9); POTASSIUM - SERUM 3.9 mmol/L (3.5-5.1); SODIUM 136 mmol/L (136-145); TRIGLYCERIDE 143 mg/dL (30-200); eGFR NON AFRICAN AMERICAN > 90 mL/min (90-120)
[2019-09-04 06:25] LABS: UREA NITROGEN 11 mg/dL (7-18)
[2019-09-04 06:26] LABS: BASOPHILS 0.1 % (0-2); EOSINOPHILS 1.2 % (0-7); HEMATOCRIT 31.3 % (42.0-54.0); HEMOGLOBIN 10.5 g/dL (13.5-17.5); IMMATURE GRANULOCYTES 0.5 % (0-5); LYMPHOCYTES 9.5 % (15-50); MCH 29.3 pg (26.0-34.0); MCHC 33.5 g/dL (31.0-37.0); MCV 87.4 fL (80.0-100.0); MEAN PLATELET VOLUME 8.9 fL (7.4-10.4); MONOCYTES 6.1 % (2-11); NEUTROPHILS 82.6 % (40-80); PLATELET COUNT 655 10x3/uL (130-400); RBC 3.58 10x6/uL (4.20-6.10); RDW 14.4 % (11.5-14.5); WBC 17.7 10x3/uL (4.8-10.8)
--- NOTE | 2019-09-04 07:10 | NUR ---
PT RESTING IN BED. NO SIGNS OF DISTRESS. IV TO LEFT UPPER ARM PICC AND RIGHT FORARM PATENT NO REDNESS OR TENDERNESS. MIDLINE INCISION TO ABDOMEN. DRESSING CLEAN AND INTACT. COLOSTOMY TO LEFT SIDE. DENIES ANY FURTHER NEED AT THIS TIME. CALL LIGHT INREACH. BED LOW POSITION. NO FAMILY AT BEDSIDE AT THIS TIME.
--- NOTE | 2019-09-04 08:34 | NUR ---
Nutrition follow-up: Chart reviewed TPN rate increased to 75 ml/hr to better meet pt estimated enegy needs RDN following.
[2019-09-04 08:47] VITALS: BP 141/90
[2019-09-04 12:10] VITALS: BP 171/98
[2019-09-04 16:44] VITALS: BP 130/94
--- NOTE | 2019-09-04 19:37 | MORECARE ---
CASE MANAGEMENT DISCHARGE SUMMARY PATIENT: BROOKE KELLEY UNIT: [id number] ADM DATE: 08/25/19 AGE: 34 : 83 SEX: M ROOM/BED: D.2218 AUTHOR: FELIPE,DOC PHYSICIAN: REFERRING PHYSICIAN: PABLITO DENNIS MD DATE OF SERVICE: 09/04/19 Discharge Plan Patient Name: BROOKE KELLEY Facility: [facility]:[place] : 1985 Planned Disposition: Home or Self Care Anticipated Discharge Date: Discharge Date: Expected LOS: Initial Reviewer: [email or web address] Initial Review Date: 08/25/2019 Generated: 09/04/19 8:37 pm Comments DCP- Discharge Planning Updated by [email or web address]: Lima Dee on 09/04/19 6:[address] RENAL ULTRASOUND AND ABDOMINAL ARTERIAL STUDIES DONE TODAY. WOUND CARE NURSE STATES PATIENT ENCOURAGED TO READ BOOKLET. LISTED SUPPLIES NEEDED. ?? ASSESS PATIENT'S ABILITY TO DO CARE AND RETURN DEMOSTRATION. WBC COUNT INCREASED TO 17.7K FROM 12.4 HCT DECREASED 38- 31.1 PICC LINE AND TPN PLANNED. FLD BALANCE 6699 POSITIVE 1669 POSITIVE THE LAST 48 HRS. DCP- Discharge Planning Updated by [email or web address]: Calista Garcia on 09/03/19 2:[address] GAIL WITH WOUND CARE IS TO ASSESS THE PATIENTS OSTOMY NEEDS FOR HOME DCP- Discharge Planning Updated by [email or web address]: Calista Garcia on 09/03/19 7:[address] Patient Name: BROOKE KELLEY Admission Status: Elective Accout number: [id number] Admission Date: 08-25-2019 : 1985 Admission Diagnosis: Attending: PABLITO DENNIS Current LOS: 9 Anticipated DC Date: Planned Disposition: Home or Self Care Primary Insurance: [place] [employer] [facility] Discharge Planning Comments: CM met with patient to complete initial dc planning assessment. CM educated patient on the CM role and verbal consent given by patient to complete assessment. Patient lives at home with friends where he stated he was independent with his care. At discharge patient plans to return there and feels this is a safe discharge. His will be his power truck driver home. CM discussed availability of home health, rehab services, and medical equipment. He had care iv in the past, but he states he is not current with them. He has a new colostomy and will need supplies and home health, but he does not have a PCP. Patient denied known discharge needs at this time. CM will continue to follow and will assist as needed with dc plans/needs. Metal Sprayer: Calista Garcia DCP- Discharge Planning Updated by [email or web address]: Calista Garcia on 08/31/19 11:[address] attempted to see patient this am @ 08/31/19 8:50 and patient was not in his room, will attempt to see at a later time DCPIA - Discharge Planning Initial Assessment Updated by [email or web address]: Calista Garcia on 09/03/19 8:26 am * Is the patient Alert and Oriented? Yes * How many steps to enter\exit or inside your home? * PCP NONE * [facility] * Preadmission Environment Home with Family * ADLs Independent * Equipment Other * Other Equipment IV STAND * List name and contact numbers for known caregivers / representatives who currently or will assist patient after discharge: REMI [phone] * Verbal permission to speak to the caregivers and representatives has been obtained from the patient. N/A * Community resources currently utilized None * Please name any agencies selected above. HAD [facility]ARE [facility] IN THE PAST * Additional services required to return to the preadmission environment? Yes * Can the patient safely return to the preadmission environment? Yes * Has this patient been hospitalized within the prior 30 days at any hospital? No Last DP export: 09/03/19 2:28 p Patient Name: BROOKE KELLEY Page [phone] at 1937 All edits/amendments must be made on the electronic document DICTATION DATE: 09/04/191936 DIAMOND DIE MAKER: EVERTON 09/04/191936 RPT#: [id number] DC DATE: STATUS: ADM IN [facility] [address] [place] [address] END OF REPORT
[2019-09-04 20:00] VITALS: BP 137/82
--- NOTE | 2019-09-04 21:47 | NUR ---
PATIENT AMBULATING UNIT
[2019-09-05] VITALS: BP 120/75
[2019-09-05 04:00] VITALS: BP 146/89
[2019-09-05 05:33] LABS: BASOPHILS 0.1 % (0-2); CALC OSMOLALITY 274 mosm/kg (275-300); CALCIUM 8.2 mg/dL (8.5-10.1); CARBON DIOXIDE 26.8 mmol/L (21.0-32.0); CHLORIDE - SERUM 103 mmol/L (98-107); CREATININE - SERUM 0.6 mg/dL (0.6-1.3); EOSINOPHILS 4.1 % (0-7); GLUCOSE 126 mg/dL (74-106); HEMATOCRIT 28.6 % (42.0-54.0); HEMOGLOBIN 9.4 g/dL (13.5-17.5); IMMATURE GRANULOCYTES 0.9 % (0-5); LYMPHOCYTES 14.9 % (15-50); MCH 28.4 pg (26.0-34.0); MCHC 32.9 g/dL (31.0-37.0); MCV 86.4 fL (80.0-100.0); MEAN PLATELET VOLUME 8.6 fL (7.4-10.4); MONOCYTES 9.1 % (2-11); NEUTROPHILS 70.9 % (40-80); PLATELET COUNT 589 10x3/uL (130-400); POTASSIUM - SERUM 3.7 mmol/L (3.5-5.1); RBC 3.31 10x6/uL (4.20-6.10); RDW 14.7 % (11.5-14.5); SODIUM 137 mmol/L (136-145); UREA NITROGEN 11 mg/dL (7-18); WBC 11.9 10x3/uL (4.8-10.8); eGFR NON AFRICAN AMERICAN > 90 mL/min (90-120)
--- NOTE | 2019-09-05 07:20 | NUR ---
RECIEVE REPORT. ALERT AND ORIENTED X4. UP AMBULATATING IN [place]. GAIT STEADY. DENIES ANY NEEDS AT THIS TIME. CONTINUE PLAN OF CARE AND SAFETY PRECAUTIONS.
[2019-09-05 08:12] VITALS: BP 160/97
[2019-09-05 09:21] LABS: PHOSPHOROUS 3.7 mg/dL (2.5-4.9)
--- NOTE | 2019-09-05 09:32 | NUR ---
Nutrition follow-up: Chart reviewed Labs WNL Will continue current TPN @ 75 ml/hr RDN following.
[2019-09-05 12:02] VITALS: BP 133/88
[2019-09-05 17:27] VITALS: BP 141/93
--- NOTE | 2019-09-05 19:15 | NUR ---
BEDSIDE REPORT RECEIVED. PATIENT ALERT AND ORIENTED. REQUESTING SHOWER WHEN TIME AVAILABLE. RIGHT UPPER ARM PICC INFUSING TPN. DILAUDID GOLF COURSE MECHANIC 0.4/04/28. SYRINGE CHANGED SHORTLY BEFORE SHIFT CHANGE AT 1900. DENIES FURTHER NEEDS AT THIS TIME. CALL LIGHT IN REACH. SIGNIFICANT OTHER AT BEDSIDE. CPOC.
[2019-09-05 20:00] VITALS: BP 133/85
--- NOTE | 2019-09-05 20:00 | NUR ---
DRESSINGS CHANGED AND SHOWER PROVIDED ALONG WITH FULL LINEN CHANGE.
--- NOTE | 2019-09-05 22:31 | NUR ---
PATIENT AMBULATING UINT WITH SIGNIFICANT OTHER. 3 ROUNDS AROUND NURSING UNIT
[2019-09-06] VITALS: BP 133/86
--- NOTE | 2019-09-06 00:29 | NUR ---
CHICK GRADER SYRINGE CHANGED PER ORDER. CURRENT LIMITS, PER ORDER, 0.4/04/28. DENIES FURTHER NEEDS AT THIS TIME. CPOC
[2019-09-06 04:00] VITALS: BP 139/77
[2019-09-06 05:13] LABS: BASOPHILS 0.4 % (0-2); EOSINOPHILS 4.8 % (0-7); HEMATOCRIT 28.5 % (42.0-54.0); HEMOGLOBIN 9.6 g/dL (13.5-17.5); IMMATURE GRANULOCYTES 1.7 % (0-5); LYMPHOCYTES 10.3 % (15-50); MCH 28.7 pg (26.0-34.0); MCHC 33.7 g/dL (31.0-37.0); MCV 85.3 fL (80.0-100.0); MEAN PLATELET VOLUME 8.8 fL (7.4-10.4); MONOCYTES 7.8 % (2-11); PLATELET COUNT 425 10x3/uL (130-400); RBC 3.34 10x6/uL (4.20-6.10); RDW 14.7 % (11.5-14.5); WBC 13.9 10x3/uL (4.8-10.8)
[2019-09-06 05:22] LABS: CALC OSMOLALITY 267 mosm/kg (275-300); CALCIUM 8.2 mg/dL (8.5-10.1); CARBON DIOXIDE 27.1 mmol/L (21.0-32.0); CHLORIDE - SERUM 100 mmol/L (98-107); CREATININE - SERUM 0.6 mg/dL (0.6-1.3); GLUCOSE 110 mg/dL (74-106); MAGNESIUM - SERUM 1.9 mg/dL (1.8-2.4); PHOSPHOROUS 4.2 mg/dL (2.5-4.9); SODIUM 134 mmol/L (136-145); UREA NITROGEN 10 mg/dL (7-18); eGFR NON AFRICAN AMERICAN > 90 mL/min (90-120)
[2019-09-06 05:34] LABS: POTASSIUM - SERUM 4.3 mmol/L (3.5-5.1)
--- NOTE | 2019-09-06 07:10 | NUR ---
PT RESTING IN BED. NO SIGNS OF DISTRESS. IV TO RIGHT UPPER ARM PICC PATENT NO REDNESS OR TENDERNESS. COLOSTOMY TO LEFT SIDE. MIDLINE INCISION. DRESSING CLEAN AND INTACT. DENIES ANY FURTHER NEED AT THIS TIME. CALL LIGHT IN REACH. BED LOW POSITION. FAMILY AT BEDSIDE.
[2019-09-06 08:23] VITALS: BP 119/84
--- NOTE | 2019-09-06 09:56 | NUR ---
RESTING,WITHOUT NEEDS.CALL LIGHT IN REACH
[2019-09-06 12:18] VITALS: BP 135/85
--- NOTE | 2019-09-06 12:22 | NUR ---
Nutrition follow-up: Diet advanced to clear liquids; advance as tolerated per Dr. Hennessy TPN @ 75 ml/hr Labs reviewed Wt: 222# Will continue current TPN regimen. RDN will continue to monitor patients diet advancement and tolerance.
[2019-09-06 16:43] VITALS: BP 134/96
[2019-09-06 18:08] LABS: AEROBE ID Final report (())
--- NOTE | 2019-09-06 21:00 | NUR ---
A&O X 4, FAMILY AT BEDSIDE. OSTOMY EMPTIED OF 400MLS OF LOOSE STOOL. PT REPORTS PAIN OF 5/10 AFTER AMBULATING IN HALLS. NO NEEDS VOICED AT THIS TIME, WILL CONTINUE TO MONITOR.
[2019-09-06 21:39] VITALS: BP 135/96
[2019-09-07 01:26] VITALS: BP 127/86
[2019-09-07 05:30] VITALS: BP 136/94
[2019-09-07 05:32] LABS: BASOPHILS 0.3 % (0-2); EOSINOPHILS 6.6 % (0-7); HEMATOCRIT 29.3 % (42.0-54.0); HEMOGLOBIN 9.8 g/dL (13.5-17.5); LYMPHOCYTES 14.1 % (15-50); MCH 28.6 pg (26.0-34.0); MCHC 33.4 g/dL (31.0-37.0); MCV 85.4 fL (80.0-100.0); MEAN PLATELET VOLUME 8.5 fL (7.4-10.4); MONOCYTES 7.9 % (2-11); NEUTROPHILS 70.1 % (40-80); RBC 3.43 10x6/uL (4.20-6.10); RDW 14.7 % (11.5-14.5); WBC 11.8 10x3/uL (4.8-10.8)
[2019-09-07 05:49] LABS: CALC OSMOLALITY 278 mosm/kg (275-300); CALCIUM 8.6 mg/dL (8.5-10.1); CHLORIDE - SERUM 102 mmol/L (98-107); CREATININE - SERUM 0.7 mg/dL (0.6-1.3); GLUCOSE 114 mg/dL (74-106); MAGNESIUM - SERUM 2.3 mg/dL (1.8-2.4); PHOSPHOROUS 4.5 mg/dL (2.5-4.9); POTASSIUM - SERUM 3.9 mmol/L (3.5-5.1); SODIUM 139 mmol/L (136-145); UREA NITROGEN 12 mg/dL (7-18); eGFR NON AFRICAN AMERICAN > 90 mL/min (90-120)
[2019-09-07 05:59] LABS: PLATELET COUNT 612 10x3/uL (130-400)
--- NOTE | 2019-09-07 06:45 | NUR ---
I have reviewed this patient and I concur with the Shift Assessment completed by the Licensed Practical Nurse today this shift.
--- NOTE | 2019-09-07 07:41 | NUR ---
ALERT AND ORIENTED. LUNGS CLEAR BILATERALLY. HEART SOUNDS S1 AND S2 HEARD IN ALL PEREZ. BOWEL SOUNDS ACTIVE X 4. OSTOMY PATENT WITH DRSG C/D/I. ZULY PICC PATENT WITHOUT REDNESS. MIDLINE INCISION C/D/I. BED LOW. CALL MCGRAW AND PERSONAL ITEMS IN REACH. WILL CONTINUE TO MONITOR.
[2019-09-07] MEDS ORDERED: PERCOCET 5-3251 TAB PO (09:13)
[2019-09-07] MEDS ORDERED: AUGMENTIN 875-11 TAB PO (09:18)
[2019-09-07] MEDS ORDERED: DOXYCYCLINE HY100 M2 PO (09:18)
[2019-09-07 09:28] VITALS: BP 142/84
--- NOTE | 2019-09-07 10:58 | NUR ---
ANTHONY OLIVER ON MED 2 CALLED TO REMOVE PATIENT'S PICC FOR DISCHARGE.
--- NOTE | 2019-09-07 11:12 | NUR ---
RIGHT UPPER ARM PICC LINE REMOVED PER ORDERS. TOLERATED WELL. STERILE TECHINIQUE USED.
--- NOTE | 2019-09-07 11:17 | NUR ---
ZULY PICC REMOVED BY ANTHONY OLIVER. PATIENT INSTRUCTED TO LIE FLAT 15 MINUTES. DRSG CHANGED TO ABD MIDLINE INCISION. NO S/SX INFECTION NOTED. SUPPLIES SENT WITH PATIENT FOR ABD INCISION DRSG CHANGE IF NEEDED BEFORE HOME HEALTH CHANGES. COLOSTOMY SUPPLIES X 3 CHANGES SENT WITH PATIENT. EDUCATION PROVIDED ON OSTOMY CHANGES. VERBALIZED UNDERSTANDING. DENIES FURTHER NEEDS.
--- NOTE | 2019-09-07 11:44 | MORECARE ---
CASE MANAGEMENT DISCHARGE SUMMARY PATIENT: BROOKE KELLEY UNIT: [id number] ADM DATE: 08/25/19 AGE: 34 : 83 SEX: M ROOM/BED: D.2218 AUTHOR: FELIPE,DOC PHYSICIAN: REFERRING PHYSICIAN: PABLITO DENNIS MD DATE OF SERVICE: 09/07/19 Discharge Plan Patient Name: BROOKE KELLEY Facility: [facility]:[place] : 1985 Planned Disposition: Home or Self Care Anticipated Discharge Date: Discharge Date: Expected LOS: Initial Reviewer: [email or web address] Initial Review Date: 08/25/2019 Generated: 09/07/19 12:43 pm DCP- Discharge Planning Updated by [email or web address]: Lima Dee on 09/04/19 6:[address] RENAL ULTRASOUND AND ABDOMINAL ARTERIAL STUDIES DONE TODAY. WOUND CARE NURSE STATES PATIENT ENCOURAGED TO READ BOOKLET. LISTED SUPPLIES NEEDED. ?? ASSESS PATIENT'S ABILITY TO DO CARE AND RETURN DEMOSTRATION. WBC COUNT INCREASED TO 17.7K FROM 12.4 HCT DECREASED 38- 31.1 PICC LINE AND TPN PLANNED. FLD BALANCE 6699 POSITIVE 1669 POSITIVE THE LAST 48 HRS. DCP- Discharge Planning Updated by [email or web address]: Calista Garcia on 09/03/19 2:[address] GAIL WITH WOUND CARE IS TO ASSESS THE PATIENTS OSTOMY NEEDS FOR HOME DCP- Discharge Planning Updated by [email or web address]: Calista Garcia on 09/03/19 7:[address] Patient Name: BROOKE KELLEY Admission Status: Elective Accout number: [id number] Admission Date: 08-25-2019 : 1985 Admission Diagnosis: Attending: PABLITO DENNIS Current LOS: 9 Anticipated DC Date: Planned Disposition: Home or Self Care Primary Insurance: [place] [employer] [facility] Discharge Planning Comments: CM met with patient to complete initial dc planning assessment. CM educated patient on the CM role and verbal consent given by patient to complete assessment. Patient lives at home with friends where he stated he was independent with his care. At discharge patient plans to return there and feels this is a safe discharge. His will be his automobile drivers home. CM discussed availability of home health, rehab services, and medical equipment. He had care iv in the past, but he states he is not current with them. He has a new colostomy and will need supplies and home health, but he does not have a PCP. Patient denied known discharge needs at this time. CM will continue to follow and will assist as needed with dc plans/needs. Ciso: Calista Garcia DCP- Discharge Planning Updated by [id number]: Calista Garcia on 08/31/19 11:[address] attempted to see patient this am @ 08/31/19 8:50 and patient was not in his room, will attempt to see at a later time DCPIA - Discharge Planning Initial Assessment Updated by [email or web address]: Calista Garcia on 09/03/19 8:26 am * Is the patient Alert and Oriented? Yes * How many steps to enter\exit or inside your home? * PCP NONE * [facility] * Preadmission Environment Home with Family * ADLs Independent * Equipment Other * Other Equipment IV STAND * List name and contact numbers for known caregivers / representatives who currently or will assist patient after discharge: REMI [phone] * Verbal permission to speak to the caregivers and representatives has been obtained from the patient. N/A * Community resources currently utilized None * Please name any agencies selected above. HAD CARE IV IN THE PAST * Additional services required to return to the preadmission environment? Yes * Can the patient safely return to the preadmission environment? Yes * Has this patient been hospitalized within the prior 30 days at any hospital? No Last DP export: 09/04/19 6:37 p Patient Name: BROOKE KELLEY Page 43401 at 1144 All edits/amendments must be made on the electronic document DICTATION DATE: 09/07/19 1143 CRIMINOLOGY PROFESSOR: EVERTON 09/07/19 1143 RPT#: [id number] DC DATE: STATUS: ADM IN [facility] [address] [place] [address] END OF REPORT
--- NOTE | 2019-09-07 11:47 | NUR ---
DISCHARGE EDUCATION PROVIDED BOTH WRITTEN AND VERBAL. VERBALIZED UNDERSTANDING. DENIES FURTHER QUESTIONS. FATHER IN LAW IN LAB CALLED PER PATIENT REQUEST FOR RIDE HOME.
--- NOTE | 2019-09-07 11:58 | MORECARE ---
CASE MANAGEMENT DISCHARGE SUMMARY PATIENT: BROOKE KELLEY UNIT: [id number] ADM DATE: 08/25/19 AGE: 34 : 83 SEX: M ROOM/BED: D.2218 AUTHOR: FELIPE,DOC PHYSICIAN: REFERRING PHYSICIAN: PABLITO DENNIS MD DATE OF SERVICE: 09/07/19 Discharge Plan Patient Name: BROOKE KELLEY Facility: [facility]:[place] : 1985 Planned Disposition: Home or Self Care Anticipated Discharge Date: Discharge Date: Expected LOS: Initial Reviewer: [email or web address] Initial Review Date: 08/25/2019 Generated: 09/07/19 12:57 pm DCP- Discharge Planning Updated by [email or web address]: Lima Dee on 09/04/19 6:[address] RENAL ULTRASOUND AND ABDOMINAL ARTERIAL STUDIES DONE TODAY. WOUND CARE NURSE STATES PATIENT ENCOURAGED TO READ BOOKLET. LISTED SUPPLIES NEEDED. ?? ASSESS PATIENT'S ABILITY TO DO CARE AND RETURN DEMOSTRATION. WBC COUNT INCREASED TO 17.7K FROM 12.4 HCT DECREASED 38- 31.1 PICC LINE AND TPN PLANNED. FLD BALANCE 6699 POSITIVE 1669 POSITIVE THE LAST 48 HRS. DCP- Discharge Planning Updated by [id number]: Calista Garcia on 09/03/19 2:[address] GAIL WITH WOUND CARE IS TO ASSESS THE PATIENTS OSTOMY NEEDS FOR HOME DCP- Discharge Planning Updated by [email or web address]: Calista Garcia on 09/03/19 7:[address] Patient Name: BROOKE KELLEY Admission Status: Elective Accout number: [id number] Admission Date: 08-25-2019 : 1985 Admission Diagnosis: Attending: PABLITO DENNIS Current LOS: 9 Anticipated DC Date: Planned Disposition: Home or Self Care Primary Insurance: [place] [employer] [facility] Discharge Planning Comments: CM met with patient to complete initial dc planning assessment. CM educated patient on the CM role and verbal consent given by patient to complete assessment. Patient lives at home with friends where he stated he was independent with his care. At discharge patient plans to return there and feels this is a safe discharge. 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 CM discussed availability of home health, rehab services, and medical equipment. He had care iv in the past, but he states he is not current with them. He has a new colostomy and will need supplies and home health, but he does not have a PCP. Patient denied known discharge needs at this time. CM will continue to follow and will assist as needed with dc plans/needs. Asphalt Mixer: Calista Garcia DCP- Discharge Planning Updated by [email or web address]: Calista Garcia on 08/31/19 11:[address] attempted to see patient this am @ 08/31/19 8:50 and patient was not in his room, will attempt to see at a later time DCPIA - Discharge Planning Initial Assessment Updated by [email or web address]: Calista Garcia on 09/03/19 8:26 am * Is the patient Alert and Oriented? Yes * How many steps to enter\exit or inside your home? * PCP NONE * [facility] * Preadmission Environment Home with Family * ADLs Independent * Equipment Other * Other Equipment IV STAND * List name and contact numbers for known caregivers / representatives who currently or will assist patient after discharge: REMI [phone] * Verbal permission to speak to the caregivers and representatives has been obtained from the patient. N/A * Community resources currently utilized None * Please name any agencies selected above. HAD [facility] IN THE PAST * Additional services required to return to the preadmission environment? Yes * Can the patient safely return to the preadmission environment? Yes * Has this patient been hospitalized within the prior 30 days at any hospital? No External Providers [facility] Next Contact Date: Service Request Date: Service Type: Resolution: Reviewer: Comments: Last DP export: 09/07/19 10:44 a Patient Name: BROOKE KELLEY Page [phone] at 1158 All edits/amendments must be made on the electronic document DICTATION DATE: 09/07/191156 VICE PRESIDENT SUPPLY CHAIN: EVERTON 09/07/191156 RPT#: [id number] DC DATE: STATUS: ADM IN [facility] [address] [place] [address] END OF REPORT
--- NOTE | 2019-09-07 12:07 | MORECARE ---
CASE MANAGEMENT DISCHARGE SUMMARY PATIENT: BROOKE KELLEY UNIT: [id number] ADM DATE: 08/25/19 AGE: 34 : 83 SEX: M ROOM/BED: D.2218 AUTHOR: PAT WANG PHYSICIAN: REFERRING PHYSICIAN: PABLITO DENNIS MD DATE OF SERVICE: 09/07/19 Discharge Plan Patient Name: BROOKE KELLEY Facility: [facility]:[place] : 1985 Planned Disposition: Home or Self Care Anticipated Discharge Date: Discharge Date: Expected LOS: Initial Reviewer: [email or web address] Initial Review Date: 08/25/2019 Generated: 09/07/19 1:06 pm Comments DCP- Discharge Planning Updated by [email or web address]: Calista Garcia on 09/07/19 10:[address] PATIENT WILL BE DISCHARGING HOME TODAY, HE WILL NEED HOME HEATLH AT DISCHARGE. HE IS CURRENT WITH CARE IV AND WILL RESUME CARE IV. ROBIN SIGNED AND PLACED ON CHART. I SPOKE WITH [facility] AND THEY WILL ACCEPT THE PATIENT BACK AND WILL BE GETTING THE PATIENT WITH COLOSTOMY SUPPLIES. PATIENT DENIES ANY NEEDS AT THIS TIME. DCP- Discharge Planning Updated by [email or web address]: Lima Dee on 09/04/19 6:[address] RENAL ULTRASOUND AND ABDOMINAL ARTERIAL STUDIES DONE TODAY. WOUND CARE NURSE STATES PATIENT ENCOURAGED TO READ BOOKLET. LISTED SUPPLIES NEEDED. ?? ASSESS PATIENT'S ABILITY TO DO CARE AND RETURN DEMOSTRATION. WBC COUNT INCREASED TO 17.7K FROM 12.4 HCT DECREASED 38- 31.1 PICC LINE AND TPN PLANNED. FLD BALANCE 6699 POSITIVE 1669 POSITIVE THE LAST 48 HRS. DCP- Discharge Planning Updated by [email or web address]: Calista Garcia on 09/03/19 2:[address] GAIL WITH WOUND CARE IS TO ASSESS THE PATIENTS OSTOMY NEEDS FOR HOME DCP- Discharge Planning Updated by [id number]: Calista Garcia on 09/03/19 7:[address] Patient Name: BROOKE KELLEY Admission Status: Elective Accout number: [id number] Admission Date: 08-25-2019 : 1985 Admission Diagnosis: Attending: PABLITO DENNIS Current LOS: 9 Anticipated DC Date: Planned Disposition: Home or Self Care Primary Insurance: [place] [employer] [place] Discharge Planning Comments: CM met with patient to complete initial dc planning assessment. CM educated patient on the CM role and verbal consent given by patient to complete assessment. Patient lives at home with friends where he stated he was independent with his care. At discharge patient plans to return there and feels this is a safe discharge. 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 CM discussed availability of home health, rehab services, and medical equipment. He had care iv in the past, but he states he is not current with them. He has a new colostomy and will need supplies and home health, but he does not have a PCP. Patient denied known discharge needs at this time. CM will continue to follow and will assist as needed with dc plans/needs. Extension Service Specialist: Calista Garcia DCP- Discharge Planning Updated by [email or web address]: Calista Garcia on 08/31/19 11:[address] attempted to see patient this am @ 08/31/19 8:50 and patient was not in his room, will attempt to see at a later time DCPIA - Discharge Planning Initial Assessment Updated by [email or web address]: Calista Garcia on 09/03/19 8:26 am * Is the patient Alert and Oriented? Yes * How many steps to enter\exit or inside your home? * PCP NONE * [facility] * Preadmission Environment Home with Family * ADLs Independent * Equipment Other * Other Equipment IV STAND * List name and contact numbers for known caregivers / representatives who currently or will assist patient after discharge: REMI [phone] * Verbal permission to speak to the caregivers and representatives has been obtained from the patient. N/A * Community resources currently utilized None * Please name any agencies selected above. HAD CARE [facility] IN THE PAST * Additional services required to return to the preadmission environment? Yes * Can the patient safely return to the preadmission environment? Yes * Has this patient been hospitalized within the prior 30 days at any hospital? No Coverage Notice Reviewer: [id number] - Calista Garcia Notice Issued Date-Time: 09/07/2019 11:40 Notice Type: Patient Choice Letter Notice Delivered To: Patient Relationship to Patient: Tailings Man Name: Delivery Method: HAND - Hand Delivered Cristy Days: Prior Verbal Notification: Recipient Understood Notice: Yes Recipient Signature: Yes Med Rec Note Co-signed by Attending: Coverage Notice Comment: CARE IV Last DP export: 09/07/19 10:58 a Patient Name: BROOKE KELLEY Page [phone] at 1207 All edits/amendments must be made on the electronic document DICTATION DATE: 09/07/191205 MILL ATTENDANT: EVERTON 09/07/19 1206 RPT#: [id number] DC DATE: STATUS: ADM IN [facility] [address] [place] [address] END OF REPORT
--- NOTE | 2019-09-07 12:13 | NUR ---
PATIENT DISCHARGED HOME WITH ALL BELONGINGS.
--- NOTE | 2019-09-07 14:26 | MORECARE ---
CASE MANAGEMENT DISCHARGE SUMMARY PATIENT: BROOKE KELLEY UNIT: [id number] ADM DATE: 08/25/19 AGE: 34 : 83 SEX: M ROOM/BED: D.2218 AUTHOR: FELIPE,DOC PHYSICIAN: REFERRING PHYSICIAN: PABLITO DENNIS MD DATE OF SERVICE: 09/07/19 Discharge Plan Patient Name: BROOKE KELLEY Facility: [facility]:[place] : 1985 Planned Disposition: Home or Self Care Anticipated Discharge Date: Discharge Date: 09/07/2019 Expected LOS: 0 Initial Reviewer: [email or web address] Initial Review Date: 08/25/2019 Generated: 09/07/19 3:26 pm Comments DCP- Discharge Planning Updated by [id number]: Calista Garcia on 09/07/19 10:[address] PATIENT WILL BE DISCHARGING HOME TODAY, HE WILL NEED HOME HEATLH AT DISCHARGE. HE IS CURRENT WITH CARE IV AND WILL RESUME CARE IV. ROBIN SIGNED AND PLACED ON CHART. I SPOKE WITH [facility] AND THEY WILL ACCEPT THE PATIENT BACK AND WILL BE GETTING THE PATIENT WITH COLOSTOMY SUPPLIES. PATIENT DENIES ANY NEEDS AT THIS TIME. DCP- Discharge Planning Updated by [id number]: Lima Dee on 09/04/19 6:[address] RENAL ULTRASOUND AND ABDOMINAL ARTERIAL STUDIES DONE TODAY. WOUND CARE NURSE STATES PATIENT ENCOURAGED TO READ BOOKLET. LISTED SUPPLIES NEEDED. ?? ASSESS PATIENT'S ABILITY TO DO CARE AND RETURN DEMOSTRATION. WBC COUNT INCREASED TO 17.7K FROM 12.4 HCT DECREASED 38- 31.1 PICC LINE AND TPN PLANNED. FLD BALANCE 6699 POSITIVE 1669 POSITIVE THE LAST 48 HRS. DCP- Discharge Planning Updated by [email or web address]: Calista Garcia on 09/03/19 2:[address] GAIL WITH WOUND CARE IS TO ASSESS THE PATIENTS OSTOMY NEEDS FOR HOME DCP- Discharge Planning Updated by [email or web address]: Calista Garcia on 09/03/19 7:[address] Patient Name: BROOKE KELLEY Admission Status: Elective Accout number: [id number] Admission Date: 08-25-2019 : 1985 Admission Diagnosis: Attending: PABLITO DENNIS Current LOS: 9 Anticipated DC Date: Planned Disposition: Home or Self Care Primary Insurance: [place] [employer] [place] Discharge Planning Comments: CM met with patient to complete initial dc planning assessment. CM educated patient on the CM role and verbal consent given by patient to complete assessment. Patient lives at home with friends where he stated he was independent with his care. At discharge patient plans to return there and feels this is a safe discharge. 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 CM discussed availability of home health, rehab services, and medical equipment. He had care iv in the past, but he states he is not current with them. He has a new colostomy and will need supplies and home health, but he does not have a PCP. Patient denied known discharge needs at this time. CM will continue to follow and will assist as needed with dc plans/needs. Manager Care: Calista Garcia DCP- Discharge Planning Updated by [email or web address]: Calista Garcia on 08/31/19 11:[address] attempted to see patient this am @ 08/31/19 8:50 and patient was not in his room, will attempt to see at a later time DCPIA - Discharge Planning Initial Assessment Updated by [email or web address]: Calista Garcia on 09/03/19 8:26 am * Is the patient Alert and Oriented? Yes * How many steps to enter\exit or inside your home? * PCP NONE * [facility] * Preadmission Environment Home with Family * ADLs Independent * Equipment Other * Other Equipment IV STAND * List name and contact numbers for known caregivers / representatives who currently or will assist patient after discharge: REMI [phone] * Verbal permission to speak to the caregivers and representatives has been obtained from the patient. N/A * Community resources currently utilized None * Please name any agencies selected above. HAD CARE IV IN THE PAST * Additional services required to return to the preadmission environment? Yes * Can the patient safely return to the preadmission environment? Yes * Has this patient been hospitalized within the prior 30 days at any hospital? No Coverage Notice Reviewer: [id number] - Calista Garcia Notice Issued Date-Time: 09/07/2019 11:40 Notice Type: Patient Choice Letter Notice Delivered To: Patient Relationship to Patient: Head Of Training And Development Name: Delivery Method: HAND - Hand Delivered Cristy Days: Prior Verbal Notification: Recipient Understood Notice: Yes Recipient Signature: Yes Med Rec Note Co-signed by Attending: Coverage Notice Comment: CARE IV Last DP export: 09/07/19 11:07 a Patient Name: BROOKE KELLEY Page 10045 at 1426 All edits/amendments must be made on the electronic document DICTATION DATE: 09/07/191425 PELLETIZER TENDER: EVERTON 09/07/19 1426 RPT#: [id number] DC DATE:09/07/19 STATUS: DIS IN [facility] [address] [place] [address] END OF REPORT
[2019-09-11 17:08] LABS: AEROBE ID Final report (())
== END 2019-09-07 12:00 | disposition home health service (06) | DRG 329 ==
LOC: D.MS 08-25 08:04 → D.SDCHOLD 08-25 08:04 → D.MS 08-25 16:08
PROVIDERS: ADMIT Surgery; ATTEND Surgery
PROC: 0DTN0ZZ Resection of Sigmoid Colon, Open Approach (ICD-10-PCS; principal; 2019-08-25 11:15)
PROC: 0W9G0ZZ Drainage of Peritoneal Cavity, Open Approach (ICD-10-PCS; 2019-08-31 15:30)
PROC: 0D1M0Z4 Bypass Descending Colon to Cutaneous, Open Approach (ICD-10-PCS; 2019-08-31 15:30)
PROC: 05HY33Z Insertion of Infusion Device into Upper Vein, Percutaneous Approach (ICD-10-PCS; 2019-09-02)
DX: K57.20 Diverticulitis of large intestine with perforation and abscess without bleeding (principal); K65.9 Peritonitis, unspecified; F17.203 Nicotine dependence unspecified, with withdrawal; K63.2 Fistula of intestine; K91.89 Other postprocedural complications and disorders of digestive system; K56.7 Ileus, unspecified

== ENCOUNTER 2020-01-21 09:44 | Inpatient (IN) | payer MEDICAID ==
[~2020-01-21] VITALS: Ht 170.2 cm; Wt 109.3 kg
[~2020-01-21 09:44] MED LIST changes: +AUGMENTIN 875-11 TAB PO; +DOXYCYCLINE HY100 M2 PO; +PERCOCET 5-3251 TAB PO
--- NOTE | 2020-01-24 11:39 | NUR ---
HERNANDEZ APPT: TEMP 97.9 P83 R20 BP 123/84 O2 SAT 99%.
[2020-01-24 11:53] LABS: HEMATOCRIT 44.7 % (42.0-54.0); HEMOGLOBIN 14.9 g/dL (13.5-17.5); MCH 29.2 pg (26.0-34.0); MCHC 33.3 g/dL (31.0-37.0); MCV 87.6 fL (80.0-100.0); MEAN PLATELET VOLUME 9.3 fL (7.4-10.4); RBC 5.1 10x6/uL (4.20-6.10); RDW 13.5 % (11.5-14.5); WBC 7.2 10x3/uL (4.8-10.8)
[2020-01-24 12:00] LABS: CALC OSMOLALITY 274 mosm/kg (275-300); CALCIUM 9.2 mg/dL (8.5-10.1); CARBON DIOXIDE 28.6 mmol/L (21.0-32.0); CHLORIDE - SERUM 104 mmol/L (98-107); CREATININE - SERUM 0.9 mg/dL (0.6-1.3); GLUCOSE 115 mg/dL (74-106); POTASSIUM - SERUM 4.5 mmol/L (3.5-5.1); SODIUM 137 mmol/L (136-145); UREA NITROGEN 12 mg/dL (7-18); eGFR NON AFRICAN AMERICAN > 90 mL/min (90-120)
--- NOTE | 2020-01-26 07:34 | NUR ---
0715-dr. harris notified patient completed bowel prep yesterday and proceeded to have a regular diet for dinner after prep completed. dr. harris states to proceed with surgery
[2020-01-26 07:40] VITALS: BP 130/83; BMI 37.8
[2020-01-26 16:05] VITALS: BP 130/87
--- NOTE | 2020-01-26 16:26 | NUR ---
received pt from chely bai, pt is asleep and easily awakened to answer questions, pt is wanting ice chips, explained that for now pt is npo per dr's orders, pt has anisa drain to left and rt kower abd area, wound vac midline, iv in pt rt wrist, orders for card seller, attached pt scds and frequent vitals, will set up card seller, continue with plan of care
--- NOTE | 2020-01-26 16:28 | NUR ---
PT HAS NGT TO RT NARE CLAMPED, UNSURE OF PT IS TO BE HOOKED UP TO LIS, WILL HAVE DR DENNIS PAGED FOR FURTHER INSTRUCTIONS
--- NOTE | 2020-01-26 17:13 | NUR ---
PT ON CL STATED " WHEN CAN I GET THIS FU$%*KNG THING OUT OF MY NOSE AND WHERE IS MY ICE?!" EXPLAINED TO PT AGAIN THAT I HAVE ORDERS FOR NPO AND IS IN SURGERY AT THIS TIME AND WHEN HE COMES OUT I WILL KNOW MORE. PT CONTINUES TO CURSE, OFFERED PT MOUTH SWABS AND HE REFUSED AND WENT BACK TO SLEEP, GAVE SWABS TO PT SPOUSE, CL IN REACH CONTINUE WITH PLAN OF CARE
--- NOTE | 2020-01-26 18:58 | NUR ---
EMPTIED PT CATHETER AND KIZZY DRAINS. KIZZY ON LEFT LABLED 1 HAD 70 AND KIZZY ON RT HAD 90 LABLED IN I&O JP2. PT TILL C/O NGT AND WANTS IT REMOVED, ADVISED PT I WILL WHEN I RECEIVE AN ORDER, CONTINUE WITH PLAN OF CARE
--- NOTE | 2020-01-26 19:27 | NUR ---
I have reviewed this patient and I concur with the Shift Assessment completed by the Licensed Practical Nurse today this shift.
[2020-01-26 20:00] VITALS: BP 122/75
--- NOTE | 2020-01-26 21:00 | NUR ---
UNCOOPERATIVE. YELLING AT STAFF. WANTING SOMETHING TO DRINK AND TRYING TO PULL NGT OUT. INSTRUCTED PT THAT HE IS NPO AND THAT HE NEEDS THE NGT. VERY AGITATED. HAS MAXED OUT HIS DATA COMMUNICATIONS SOFTWARE CONSULTANT PUMP.
--- NOTE | 2020-01-26 21:24 | NUR ---
CALMED DOWN AT THE MOMENT. LYING IN BED WITH EYES CLOSED. RESP EVEN AND NONLABORED. CL IN REACH.
[2020-01-26 21:30] VITALS: BP 122/75; BMI 37.8
--- NOTE | 2020-01-26 22:42 | NUR ---
NGT PLACED TO LIWS AT THIS TIME. INSTRUCTED PT THAT HE COULD HAVE ICE CHIPS AND POPSICLES. DECK CADET MORPHINE INCREASED TO 2MG Q 10 MINUTES WITH LOCKOUT OF 30 MG. PT HAPPY NOW.
[2020-01-27] VITALS: BP 131/71
--- NOTE | 2020-01-27 00:18 | NUR ---
RESTING BETTER NOW. NO DISTRESS. CL IN REACH.
[2020-01-27 04:00] VITALS: BP 113/75
--- NOTE | 2020-01-27 04:04 | NUR ---
LAB IN ROOM DRAWING BLOOD. HAS RESTED WELL TONIGHT. NGT TO RT NARE TO LIWS WITH GREEN FLUID NOTED IN CANISTER. HAS HAD 2 GLASSES OF ICE CHIPS. NO DISTRESS. CL IN REACH.
[2020-01-27 04:55] LABS: BASOPHILS 0.2 % (0-2); EOSINOPHILS 0.7 % (0-7); HEMATOCRIT 41.1 % (42.0-54.0); HEMOGLOBIN 13.7 g/dL (13.5-17.5); IMMATURE GRANULOCYTES 0.2 % (0-5); LYMPHOCYTES 13.5 % (15-50); MCH 29.3 pg (26.0-34.0); MCHC 33.3 g/dL (31.0-37.0); MCV 87.8 fL (80.0-100.0); MEAN PLATELET VOLUME 9.4 fL (7.4-10.4); MONOCYTES 6.2 % (2-11); NEUTROPHILS 79.2 % (40-80); PLATELET COUNT 287 10x3/uL (130-400); RBC 4.68 10x6/uL (4.20-6.10); RDW 13.8 % (11.5-14.5); WBC 13.3 10x3/uL (4.8-10.8)
[2020-01-27 05:20] LABS: ALBUMIN 2.5 g/dL (3.4-5.0); ANION GAP 10.9 mmol/L (8-16); BILIRUBIN - TOTAL 0.68 mg/dL (0.2-1.3); CALCIUM 7.5 mg/dL (8.5-10.1); CARBON DIOXIDE 24.3 mmol/L (21.0-32.0); CREATININE - SERUM 1.2 mg/dL (0.6-1.3); POTASSIUM - SERUM 4.2 mmol/L (3.5-5.1); PROTEIN - SERUM 5.3 g/dL (6.4-8.2)
[2020-01-27 08:00] VITALS: BP 121/73
--- NOTE | 2020-01-27 08:24 | NUR ---
ASSESSMENT PER FLOW SHEET. PATIENT IS WITHOUT DISTRESS.EXPIRATORY WHEEZES THROUGHOUT LUNG PEREZ. IS INSTRUCTED AND IS IN ROOM. NGT CLAMPED.TADEO DCD ORDERED,300 CC OF URINE EMPTIED FROM TADEO BAG.
--- NOTE | 2020-01-27 09:11 | OP ---
PATIENT NAME: BROOKE KELLEY MEDICAL RECORD: [id number] :83 LOCATION:D.[id number] ADMISSION DATE:01/26/20 SURGEON: PABLITO DENNIS MD DATE OF OPERATION: 01/26/2020 SURGEON: Pablito Dennis MD PREOPERATIVE DIAGNOSES: 1. History of perforated diverticulitis with colovesical fistula. 2. History of Jessica's procedure. POSTOPERATIVE DIAGNOSES: 1. History of perforated diverticulitis with colovesical fistula. 2. History of Jessica's procedure. PROCEDURE PERFORMED: 1. Colostomy reversal. 2. Adhesiolysis. ANESTHESIA: General. COMPLICATIONS: None. SPECIMENS: Descending colon. GAME PROGRAMMER SURGEON: Wenceslao Hennessy MD ESTIMATED BLOOD LOSS: 1000 cc. OPERATIVE COURSE: After consent was obtained, the patient was taken to the operating room and placed in the supine position on the operating table. Next, general anesthesia was given via endotracheal intubation after a timeout was performed to confirm the correct patient and procedure. The patient was then placed in lithotomy position. The rectum was prepped and draped in typical sterile fashion. The abdomen was then prepped and draped in typical sterile fashion and Ioban dressing was placed. Previous lower midline laparotomy incisions open with 10 blade scalpel. Subcutaneous tissues dissected using electrocautery. Once the fascia was encountered, it was incised with a 15 blade scalpel. Peritoneum was grasped with Sarita clamps and incised with Metzenbaum scissors. Once we had direct view of the abdomen, the remaining portion of the fascial incision was opened with electrocautery. At this time, extensive adhesiolysis was performed to mobilize the small bowel out of the deep pelvis as well as dissection into the deep pelvis after adhesiolysis. Once the small bowel was free from the pelvis, the rectal stump was identified. Adhesiolysis continued to allow severing the small bowel from the ileocecal valve to the ligament of Treitz. Two serosal defects were identified and repaired using 3-0 Vicryl suture. The abdomen was copiously irrigated and suctioned. Multiple plaques were placed in the pelvis and self-retaining retractor was placed into the abdomen to retract the small bowel. At this time, an elliptical incision was made around the colostomy in left upper quadrant. Using a #15 blade scalpel, dissection continued with electrocautery. The descending colon was mobilized throughout the subcutaneous tissues using combination of right angle dissectors and electrocautery. Once the fascia was identified, again, the colon was circumferentially dissected off the fascia again using right angle dissection and electrocautery. A 25 mm anvil was then placed into the OPERATIVE REPORT [id number] BROOKE KELLEY colostomy. The distal 4 cm of the descending colon was then transected with the JUAN RAMON stapler and sent for specimen. The remaining portion distal colon was passed through the open fascial defect and placed in the abdomen. The fascial defect was then closed with 0 Prolene suture in an interrupted hbkgln-dl-kwges fashion. Dr. Hennessy at this time assisted with this portion of the case. He passed the rectal dilators through the rectum. He then passed the 25-mm EEA stapler through the rectum and deployed the spike just posterior to the previous staple line. Colotomy was made in descending colon. The anvil was passed through the colotomy just posterior to the staple line. The colon was positioned of the mesentery facing medially. There was little tension on the colorectal anastomosis. The anvil was attached. The EEA device was closed and held for approximately 30 seconds staple line. The cutting portion of JUAN RAMON stapler was fired. The EEA staple was removed with 2 intact donuts. The staple line was reinforced with interrupted 3-0 Vicryl suture. Next, it was reinforced with Evicel tissue sealant. The pelvis was then filled with irrigation. Dr. Hennessy performed insufflation of the rectum. There was no evidence of leak at the staple line. At this time, the irrigation was suctioned from the abdomen and Dr. Hennessy's portion of the procedure was terminated. Approximately 3 liters of normal saline were then used to irrigate the abdomen. Careful attention was paid to hemostasis. Again, the small bowel was run from ligament of Treitz to the ileocecal valve. No evidence of serosal injury, bleeding, or succuss. Next, all surgical team members changed gown and gloves. Prior to closure, two KIZZY drains were placed into the deep pelvis and secured to skin with 2-0 nylon suture. Using a clean closing table, the fascia was closed using #1 looped PDS. Skin was reapproximated with jaiden. The colostomy was reapproximated with jaiden. Wound VACs was cut into kieran and placed between the jaiden. The wound VAC was applied to the machine with a good seal. At the end of the case, all needle and instrument counts were correct. No complications occurred. The patient was extubated and transferred to the PACU in stable condition. TRANSINT:[id number] Voice Confirmation ID: [id number] DOCUMENT ID: [id number] PABLITO DENNIS MD at 0911 CC: [id number] DICTATION DATE: 01/26/20 1458 SENIOR WIND ENERGY CONSULTANT: 01/27/20 0118 ADM IN [facility] [address] [id number]
--- NOTE | 2020-01-27 11:16 | NUR ---
UP IN CHAIR WITH PT. PATIENT STATES PAIN 03/30. PATIEN NOT USING PALLIATIVE CARE NURSE PRACTITIONER AT PRESENT.PALLIATIVE CARE NURSE PRACTITIONER USE INSTRUCTED.
[2020-01-27 11:29] VITALS: Ht 170.2 cm; Wt 109.3 kg
[2020-01-27 12:00] VITALS: BP 126/84
[2020-01-27 16:00] VITALS: BP 133/83
--- NOTE | 2020-01-27 18:41 | NUR ---
HAS BEEN UP TODAY X2 TO CHAIR. AMBULATED IN HALLS 250 FEET X1. REMAINS WITHOUT NAUSEA AFTER NGT CLAMPED EARLY AM.HAS NOT PASSED GAS,BUT HAS BELCHING. REMAINS WITHOUT CHANGE. CONT PLAN OF CARE
[2020-01-27 20:00] VITALS: BP 118/83
[2020-01-28 04:00] VITALS: BP 147/86
[2020-01-28 08:00] VITALS: BP 138/81
--- NOTE | 2020-01-28 08:00 | NUR ---
ASSESSMENT PER FLOW SHEET. PATIENT IS WITHOUT DISTRESS. PATIENT IS WITHOUT NAUSEA WITH SIPS OF WATER. HAS AMBULATED 250 FEET THIS AM. MONITOR FOR NEEDS.
--- NOTE | 2020-01-28 09:58 | NUR ---
WOUND VAC DRESSING CHANGE DATE: 01/28/2020 WOUND LOCATION: #1 MIDLINE (LOWER ABD) #2 LEFT ABD WOUND MEASUREMENTS: #1 5CM X 2CM X 5CM #2 1CM X 3.5CM X 3.5CM WOUND DESCRIPTION: BOTH ARE RED/VASCULAR MUSCLE, TENDON, OR BONE EXPOSED? NO DRAINAGE AMOUNT/DESCRIPTION: SMALL/MOD BLOODY ODOR? NO TYPE OF SPONGE USED AND AMOUNT: 3 BLACK (INCLUDES BRIDGE) SETTINGS: -125MMHG LOW CONTINUOUS TEACHING: PURPOSE OF VAC PT TOLERATED WELL.
[2020-01-28 11:23] LABS: CALC OSMOLALITY 270 mosm/kg (275-300); CALCIUM 8.4 mg/dL (8.5-10.1); CARBON DIOXIDE 26.2 mmol/L (21.0-32.0); CHLORIDE - SERUM 103 mmol/L (98-107); GLUCOSE 126 mg/dL (74-106); POTASSIUM - SERUM 3.8 mmol/L (3.5-5.1); SODIUM 135 mmol/L (136-145); UREA NITROGEN 9 mg/dL (7-18); eGFR NON AFRICAN AMERICAN 90 mL/min (90-120)
[2020-01-28 11:45] LABS: LYMPHOCYTES 11.9 % (15-50); MCH 30.3 pg (26.0-34.0); MCHC 34.3 g/dL (31.0-37.0); MCV 88.2 fL (80.0-100.0); MEAN PLATELET VOLUME 9.1 fL (7.4-10.4); NEUTROPHILS 80.7 % (40-80); PLATELET COUNT 230 10x3/uL (130-400); RDW 13.2 % (11.5-14.5); WBC 11.8 10x3/uL (4.8-10.8)
[2020-01-28 11:46] LABS: HEMATOCRIT 31.5 % (42.0-54.0); HEMOGLOBIN 10.8 g/dL (13.5-17.5); RBC 3.57 10x6/uL (4.20-6.10)
[2020-01-28 12:00] VITALS: BP 115/78
--- NOTE | 2020-01-28 15:55 | NUR ---
PATIENT STATES PASSING GAS,BUT NO STOOLS
[2020-01-28 16:00] VITALS: BP 120/82
--- NOTE | 2020-01-28 18:54 | NUR ---
HAS BEEN AMBULATING IN HALLS MULTIPLE TIMES, 250 FEET EACH TIME. TOLERATING SIPS,ICE CHIPS AND ICE POPS.HAS PASSED GAS. PAIN BETTER TODAY.REMAINS WITHOUT NAUSEA. MINIMAL DRAINAGE IN KIZZY DRAINS,3CC'S AND 5 CC'S.WITHOUT CHNAGE. CONT PLAN OF CARE.
[2020-01-28 20:00] VITALS: BP 126/70
[2020-01-29 05:22] LABS: HEMOGLOBIN 9.5 g/dL (13.5-17.5); LYMPHOCYTES 10.2 % (15-50); MCH 30.2 pg (26.0-34.0); MCHC 33.9 g/dL (31.0-37.0); MCV 88.9 fL (80.0-100.0); MEAN PLATELET VOLUME 8.9 fL (7.4-10.4); NEUTROPHILS 83.5 % (40-80); PLATELET COUNT 210 10x3/uL (130-400); RBC 3.15 10x6/uL (4.20-6.10); RDW 12.8 % (11.5-14.5); WBC 9.5 10x3/uL (4.8-10.8)
[2020-01-29 05:37] LABS: CALC OSMOLALITY 271 mosm/kg (275-300); CALCIUM 8.7 mg/dL (8.5-10.1); CARBON DIOXIDE 26.4 mmol/L (21.0-32.0); CHLORIDE - SERUM 103 mmol/L (98-107); GLUCOSE 110 mg/dL (74-106); POTASSIUM - SERUM 3.8 mmol/L (3.5-5.1); SODIUM 136 mmol/L (136-145); UREA NITROGEN 9 mg/dL (7-18); eGFR NON AFRICAN AMERICAN 90 mL/min (90-120)
--- NOTE | 2020-01-29 09:12 | NUR ---
PT ALERT AND ORIENTED X4 UPON ENTERING. ADMINISTERED MEDICATION AT THIS TIME, NO DIFFICULTIES. ASSESSMENT PERFORMED AT THIS TIME. PT GETTING READY TO AMBULATE IN THE HALLWAY AND THEN SHOWER. INFORMED PT TO NOTIFY ME IF ANY ASSISTANCE IS NEEDED. DENIES ANY NEEDS. WILL CONTINUE TO MONITOR. PT ROOM SMELLS VERY STRONGLY OF MARIJUANA AT THIS TIME.
[2020-01-29 10:22] VITALS: BP 117/82
--- NOTE | 2020-01-29 13:30 | NUR ---
LOADED NEW PAPER MAKER. RESTING IN BED. DENIES ANY NEEDS. WILL CONTINUE TO MONITOR.
--- NOTE | 2020-01-29 14:24 | NUR ---
I have reviewed this patient and I concur with the Shift Assessment completed by the Licensed Practical Nurse today this shift.
--- NOTE | 2020-01-29 15:35 | NUR ---
HUNG IV MEDICATION. RESTING COMFORTABLY IN BED. DENIES ANY NEEDS. WILL CONTINUE TO MONITOR.
[2020-01-29 18:21] VITALS: BP 128/47
[2020-01-29 20:00] VITALS: BP 121/89
--- NOTE | 2020-01-30 01:51 | NUR ---
REGIONAL SALES MANAGER SETTINGS CHANGED PER DR. ROGERS ORDER. SEE REGIONAL SALES MANAGER FLOWSHEET. PT DENIES NEEDS AND REPORTS PAIN IS CONTROLLED. VSS. BED IS LOW AND CALL LIGHT IS WTIHIN REACH.
[2020-01-30 04:00] VITALS: BP 133/81
[2020-01-30 06:26] LABS: HEMATOCRIT 28.7 % (42.0-54.0); HEMOGLOBIN 9.6 g/dL (13.5-17.5); LYMPHOCYTES 20.4 % (15-50); MCH 29.7 pg (26.0-34.0); MCHC 33.4 g/dL (31.0-37.0); MCV 88.9 fL (80.0-100.0); MEAN PLATELET VOLUME 8.9 fL (7.4-10.4); NEUTROPHILS 69.8 % (40-80); RBC 3.23 10x6/uL (4.20-6.10); RDW 12.7 % (11.5-14.5)
[2020-01-30 06:29] LABS: PLATELET COUNT 285 10x3/uL (130-400); WBC 5.2 10x3/uL (4.8-10.8)
[2020-01-30 07:02] LABS: CALC OSMOLALITY 271 mosm/kg (275-300); CALCIUM 8.3 mg/dL (8.5-10.1); CARBON DIOXIDE 25.8 mmol/L (21.0-32.0); CHLORIDE - SERUM 103 mmol/L (98-107); CREATININE - SERUM 0.8 mg/dL (0.6-1.3); GLUCOSE 126 mg/dL (74-106); POTASSIUM - SERUM 3.8 mmol/L (3.5-5.1); SODIUM 136 mmol/L (136-145); UREA NITROGEN 8 mg/dL (7-18); eGFR NON AFRICAN AMERICAN > 90 mL/min (90-120)
--- NOTE | 2020-01-30 07:05 | NUR ---
A&O RESTING IN BED WITH EYES OPEN. NO C/O PAIN, MORPHINE SAWMILL TALLY CLERK MANAGING PAIN AT THIS TIME. NO S/S OF ACUTE DISTRESS NOTED. IV TO RIGHT FOREARM, D5LR WITH 10K+ INFUSING @ 75ML/HR. SITE PATENT WITHOUT REDNESS OR SWELLING. WOUND VAC TO ABDOMEN. 2 KIZZY DRAINS TO ABDOMEN, RUQ AND LUQ. DENIES ANY NEEDS AT THIS TIME. CALL LIGHT IN REACH. WILL CONTINUE TO MONITOR.
[2020-01-30 09:24] VITALS: BP 132/80
[2020-01-30 12:54] VITALS: BP 126/82
--- NOTE | 2020-01-30 16:44 | NUR ---
I have reviewed this patient and I concur with the Shift Assessment completed by the Licensed Practical Nurse today this shift.
[2020-01-30 17:45] VITALS: BP 121/84
--- NOTE | 2020-01-30 18:15 | NUR ---
A&O RESTING IN BED WITH EYES OPEN. IV TO RIGHT FOREARM INFILTRATED, DISCONTINUED IV CATHETER TIP INTACT. RESITED TO RIGHT UPPER ARM 20GA X1 STICK BY VIOLETA WELLINGTON RN. DENIES ANY NEEDS AT THIS TIME. NO C/O PAIN. NO S/S OF ACUTE DISTRESS NOTED. CALL LIGHT IN REACH. WILL CONTINUE TO MONITOR.
[2020-01-30 20:00] VITALS: BP 135/80
--- NOTE | 2020-01-30 22:15 | NUR ---
AWAKE. ORIENTED X4. RATES PAIN IN ABD 4. HEAD OF HISTORY MORPHINE IN USE. D5LR WITH 20 MEQ KCL @ 75 MLHR INFUSING IN RT UPPER ARM. RESP EVEN AND NONLABORED. WOUNDVAC NOTED TO MIDLINE ABD WITH BLOODY DRAINAGE NOTED IN CANISTER. REFUSES TO WEAR SCDS. KIZZY DRAIN NOTED TO LT AND RT ABD WITH BLOODY DRAINAGE IN BULB. CL IN REACH. NO DISTRESS.
--- NOTE | 2020-01-31 00:08 | NUR ---
AMBULATED AROUND UNIT TWICE. PT CODY WELL.
[2020-01-31 04:00] VITALS: BP 132/90
[2020-01-31 05:52] LABS: CALC OSMOLALITY 272 mosm/kg (275-300); CALCIUM 8.1 mg/dL (8.5-10.1); CARBON DIOXIDE 26.7 mmol/L (21.0-32.0); CHLORIDE - SERUM 102 mmol/L (98-107); CREATININE - SERUM 0.8 mg/dL (0.6-1.3); GLUCOSE 108 mg/dL (74-106); POTASSIUM - SERUM 3.3 mmol/L (3.5-5.1); SODIUM 137 mmol/L (136-145); UREA NITROGEN 7 mg/dL (7-18); eGFR NON AFRICAN AMERICAN > 90 mL/min (90-120)
[2020-01-31 05:59] LABS: HEMATOCRIT 27.4 % (42.0-54.0); HEMOGLOBIN 9.1 g/dL (13.5-17.5); LYMPHOCYTES 22.3 % (15-50); MCH 29.4 pg (26.0-34.0); MCHC 33.2 g/dL (31.0-37.0); MCV 88.7 fL (80.0-100.0); MEAN PLATELET VOLUME 8.5 fL (7.4-10.4); NEUTROPHILS 65.7 % (40-80); PLATELET COUNT 307 10x3/uL (130-400); RBC 3.09 10x6/uL (4.20-6.10); RDW 12.6 % (11.5-14.5); WBC 5.6 10x3/uL (4.8-10.8)
--- NOTE | 2020-01-31 07:15 | NUR ---
REC'D SITTING ON SIDE OF BED AWAKE AND ALERT. RESP EVEN AND UNLABORED WITH NO DISTRESS NOTED. CAN EXPRESS NEEDS AND WANTS. NO C/O NOTED OR VOICED. ASSESSMENT COMPLETED WITH KIZZY DRAINING NOTED TO BL QUADRANT. C/L IN REACH AT BEDSIDE.
[2020-01-31] MEDS ORDERED: HYDROCODON-ACE1 EAC7 PO (08:21)
[2020-01-31] MEDS ORDERED: LEVOFLOXACIN500 MG PO (08:21)
[2020-01-31] MEDS ORDERED: MIRALAX17 GM PO (08:21)
[2020-01-31 09:08] VITALS: BP 122/84
--- NOTE | 2020-01-31 10:37 | MORECARE ---
CASE MANAGEMENT DISCHARGE SUMMARY PATIENT: BROOKE KELLEY UNIT: [id number] ADM DATE: 01/26/20 AGE: 34 : [birth year] SEX: M ROOM/BED: D.2225 AUTHOR: PAT WANG PHYSICIAN: REFERRING PHYSICIAN: PABLITO DENNIS MD DATE OF SERVICE: 01/31/20 Discharge Plan Patient Name: BROOKE KELLEY Facility: [facility]:[place] : 1985 Planned Disposition: Anticipated Discharge Date: Discharge Date: Expected LOS: Initial Reviewer: [email or web address] Initial Review Date: 01/31/2020 Generated: 01/31/20 11:36 am DCPIA - Discharge Planning Initial Assessment Updated by [email or web address]: Dee Perez on 01/31/20 10:35 am * Is the patient Alert and Oriented? Yes * PCP verser * Pharmacy [facility] * Preadmission Environment Home with Family * ADLs Independent * Equipment None * Community resources currently utilized Home Health * Please name any agencies selected above. [facility] * Additional services required to return to the preadmission environment? Yes * Can the patient safely return to the preadmission environment? Yes * Has this patient been hospitalized within the prior 30 days at any hospital? No External Providers External Provider: [facility] Next Contact Date: Service Request Date: Service Type: Resolution: Reviewer: Comments: External Provider: [facility] Next Contact Date: Service Request Date: Service Type: Resolution: Reviewer: Comments: Patient Name: BROOKE KELLEY Page [phone] at 1037 All edits/amendments must be made on the electronic document DICTATION DATE: 01/31/20 1037 TIMBER RIDER: EVERTON 01/31/20 1037 RPT#: [id number] ME DATE: STATUS: ADM IN [facility] [address] [place] [address] END OF REPORT
--- NOTE | 2020-01-31 10:44 | MORECARE ---
CASE MANAGEMENT DISCHARGE SUMMARY PATIENT: BROOKE KELLEY UNIT: [id number] ADM DATE: 01/26/20 AGE: 34 : [birth year] SEX: M ROOM/BED: D.2225 AUTHOR: FELIPE,DOC PHYSICIAN: REFERRING PHYSICIAN: PABLITO DENNIS MD DATE OF SERVICE: 01/31/20 Discharge Plan Patient Name: BROOKE KELLEY Facility: [facility]:[place] : 1985 Planned Disposition: Anticipated Discharge Date: Discharge Date: Expected LOS: Initial Reviewer: [email or web address] Initial Review Date: 01/31/2020 Generated: 01/31/20 11:43 am Comments DCP- Discharge Planning Updated by [email or web address]: Dee Perez on 01/31/20 9:[address] Patient Name: BROOKE KELLEY Admission Status: Urgent Accout number: [id number] Admission Date: 01-26-2020 : 1985 Admission Diagnosis:UNSPECIFIED ABDOMINAL PAIN Attending: PABLITO DENNIS Current LOS: 5 Anticipated DC Date: Planned Disposition: Primary Insurance: MEDICAID [place] Discharge Planning Comments: CM met with patient at bedside after explaining CM role and obtaining verbal consent. CM discussed availability / needs of home health, REHAB and medical equipment. STATES HE IS CURRENT WITH [facility] AND WOULD LIKE TO RESUME CARE WITH THEM. ROBIN SIGNED FOR [facility] AND [facility] WOUND VAC. I HAVE FAXED DOCUMENTS TO [facility], WAITING CALL BACK. CM TO FOLLOW AND ASSIST NEEDED. Outdoor Guide: Dee Perez DCPIA - Discharge Planning Initial Assessment Updated by [email or web address]: Dee Perez on 01/31/20 10:35 am * Is the patient Alert and Oriented? Yes * PCP verser * Pharmacy [facility] * Preadmission Environment Home with Family * ADLs Independent * Equipment None * Community resources currently utilized Home Health * Please name any agencies selected above. [facility]ARE [facility] * Additional services required to return to the preadmission environment? Yes * Can the patient safely return to the preadmission environment? Yes * Has this patient been hospitalized within the prior 30 days at any hospital? No External Providers External Provider: [facility] Next Contact Date: Service Request Date: Service Type: Resolution: Reviewer: Comments: Coverage Notice Reviewer: [id number] - Dee Perez Notice Issued Date-Time: 01/31/2020 10:40 Notice Type: Patient Choice Letter Notice Delivered To: Relationship to Patient: Telephone Quotation Clerk Name: Delivery Method: HAND - Hand Delivered Cristy Days: Prior Verbal Notification: Recipient Understood Notice: Yes Recipient Signature: Yes Med Rec Note Co-signed by Attending: Coverage Notice Comment: [facility]ME [facility] , [facility] WOUND VAC. Last DP export: 01/31/20 9:37 a Patient Name: BROOKE KELLEY Page [phone] at 1044 All edits/amendments must be made on the electronic document DICTATION DATE: 01/31/20 1043 STRAND GALVANIZER: EVERTON 01/31/20 1043 RPT#: [id number] DC DATE: STATUS: ADM IN [facility] [address] [place] [address] END OF REPORT
--- NOTE | 2020-01-31 11:31 | NUR ---
I have reviewed this patient and I concur with the Shift Assessment completed by the Licensed Practical Nurse today this shift.
--- NOTE | 2020-01-31 11:45 | NUR ---
KIZZY PAIN WAS DC AT THIS TIME WITH NO DRAINAGE NOTED TO BULBS. TOLERATED WELL. C/L IN REACH AT BEDSIDE.
--- NOTE | 2020-01-31 18:13 | NUR ---
THIS NURSE NOTICED THAT PT HAD NOT BEEN SEEN WALKING THE CORRIDORS AFTER AWHILE SO THIS NURSE WENT LOOKING FOR PT AND PT IS NOWHERE TO BE FOUND AT THIS TIME. CALL WAS PLACED TO TOY MECHANIC THAT WAS LISTED AND MR. MANCERA STATED THAT HE HASN'T SEEN PT BUT HE WILL CALL HIS MOTHER IN [place] AND SEE IF SHE HAS HEARD FROM HIM AND FOR THIS NURSE TO GIVEN HIM A CALL BACK IN A FEW MINUTES.
--- NOTE | 2020-01-31 18:34 | NUR ---
SPOKE WITH MR. MANCERA WHICH IS THE PT CONTACT AND HE STATED THAT HE SPOKE WITH THE PT MOTHER IN [place] AND THAT SHE WOULD TRY AND GET IN CONTACT WITH PT TO BRING EQUIPMENT BACK. THIS NURSE INFORMED MR. MANCERA THAT THE MACHINE COST $6000 AND THAT A POLICE REPORT WOULD HAVE TO BE MADE IF PT FAILURE TO REAPPEAR. C/L IN REACH.
[2020-01-31 20:00] VITALS: BP 131/79
[2020-02-01 04:00] VITALS: BP 136/86
[2020-02-01 06:51] LABS: HEMATOCRIT 30.3 % (42.0-54.0); HEMOGLOBIN 10.1 g/dL (13.5-17.5); LYMPHOCYTES 17.9 % (15-50); MCH 29.4 pg (26.0-34.0); MCHC 33.3 g/dL (31.0-37.0); MCV 88.1 fL (80.0-100.0); MEAN PLATELET VOLUME 8.4 fL (7.4-10.4); NEUTROPHILS 71.5 % (40-80); RBC 3.44 10x6/uL (4.20-6.10); RDW 12.8 % (11.5-14.5)
[2020-02-01 06:57] LABS: CALC OSMOLALITY 267 mosm/kg (275-300); CALCIUM 8.7 mg/dL (8.5-10.1); CARBON DIOXIDE 28.1 mmol/L (21.0-32.0); CHLORIDE - SERUM 101 mmol/L (98-107); CREATININE - SERUM 0.7 mg/dL (0.6-1.3); GLUCOSE 105 mg/dL (74-106); POTASSIUM - SERUM 3.4 mmol/L (3.5-5.1); SODIUM 135 mmol/L (136-145); UREA NITROGEN 6 mg/dL (7-18); eGFR NON AFRICAN AMERICAN > 90 mL/min (90-120)
[2020-02-01 07:00] LABS: PLATELET COUNT 407 10x3/uL (130-400); WBC 7.3 10x3/uL (4.8-10.8)
--- NOTE | 2020-02-01 08:18 | NUR ---
ALERT AND ORIENTED. LUNGS CLEAR BILATERALLY. HEART SOUNDS S1 AND S2 HEARD IN ALL PEREZ. BOWEL SOUNDS ACTIVE X 4. WAITING HOME WOUND VAC TO DC. DENIES NEEDS. BED LOW. CALL MCGRAW AND PERSONAL ITEMS IN REACH. WILL CONTINUE TO MONITOR.
[2020-02-01 09:29] VITALS: BP 122/74
--- NOTE | 2020-02-01 10:18 | NUR ---
DISCHARGE EDUCATION PROVIDED BOTH WRITTEN AND VERBAL. VERBALIZED UNDERSTANDING. DENIES FURTHER QUESTIONS. HOME WOUND VAC APPLIED AND EDUCATION PROVIDED. DENIES FURTHER NEEDS. HOSPITAL WOUND VAC REMOVED AND PLACED IN SOILED UTILITY. MATERIALS NOTIFIED.
--- NOTE | 2020-02-02 12:18 | MORECARE ---
CASE MANAGEMENT DISCHARGE SUMMARY PATIENT: BROOKE KELLEY UNIT: [id number] ADM DATE: 01/26/20 AGE: 34 : 83 SEX: M ROOM/BED: D.2225 AUTHOR: FELIPE,DOC PHYSICIAN: REFERRING PHYSICIAN: PABLITO DENNIS MD DATE OF SERVICE: 02/02/20 Discharge Plan Patient Name: BROOKE KELLEY Facility: [facility]:[place] : 1985 Planned Disposition: Anticipated Discharge Date: Discharge Date: 02/01/2020 Expected LOS: Initial Reviewer: [email or web address] Initial Review Date: 01/31/2020 Generated: 02/02/20 1:18 pm DCP- Discharge Planning Updated by [email or web address]: Dee Perez on 01/31/20 9:[address] Patient Name: BROOKE KELLEY Admission Status: Urgent Accout number: [id number] Admission Date: 01-26-2020 : 1985 Admission Diagnosis:UNSPECIFIED ABDOMINAL PAIN Attending: PABLITO DENNIS Current LOS: 5 Anticipated DC Date: Planned Disposition: Primary Insurance: MEDICAID [place] Discharge Planning Comments: CM met with patient at bedside after explaining CM role and obtaining verbal consent. CM discussed availability / needs of home health, REHAB and medical equipment. STATES HE IS CURRENT WITH [facility] AND WOULD LIKE TO RESUME CARE WITH THEM. ROBIN SIGNED FOR [facility] AND I WOUND VAC. I HAVE FAXED DOCUMENTS TO [facility], WAITING CALL BACK. CM TO FOLLOW AND ASSIST NEEDED. Seismic Prospecting Observer Helper: Dee Perez DCPIA - Discharge Planning Initial Assessment Updated by : Dee Perez on 01/31/20 10:35 am * Is the patient Alert and Oriented? Yes * PCP verser * [facility] * Preadmission Environment Home with Family * ADLs Independent * Equipment None * Community resources currently utilized Home Health * Please name any agencies selected above. [facility]ARE [facility] * Additional services required to return to the preadmission environment? Yes * Can the patient safely return to the preadmission environment? Yes * Has this patient been hospitalized within the prior 30 days at any hospital? No Coverage Notice Reviewer: [id number] - Dee Perez Notice Issued Date-Time: 01/31/2020 10:40 Notice Type: Patient Choice Letter Notice Delivered To: Relationship to Patient: Associate Field Service Engineer Name: Delivery Method: HAND - Hand Delivered Cristy Days: Prior Verbal Notification: Recipient Understood Notice: Yes Recipient Signature: Yes Med Rec Note Co-signed by Attending: Coverage Notice Comment: RES[facility]ME [facility] , [facility] WOUND VAC. Last DP export: 01/31/20 9:44 a Patient Name: BROOKE KELLEY Page [phone] at 1218 All edits/amendments must be made on the electronic document DICTATION DATE: 02/02/20 1218 TALCER: EVERTON 02/02/20 1218 RPT#: [id number] DC DATE:02/01/20 STATUS: DIS IN [facility] [address] [place] [address] END OF REPORT
== END 2020-02-01 10:21 | disposition home health service (06) | DRG 344 ==
LOC: D.SDCHOLD 01-26 06:00 → D.MS 01-26 06:00 → D.SDCHOLD 01-26 09:00 → D.MS 01-26 15:53
PROVIDERS: Anesthesiology; ADMIT Surgery; ATTEND Surgery
PROC: 0DSM0ZZ Reposition Descending Colon, Open Approach (ICD-10-PCS; principal; 2020-01-26 10:30)
DX: Z43.3 Encounter for attention to colostomy (principal); K65.9 Peritonitis, unspecified; K57.80 Diverticulitis of intestine, part unspecified, with perforation and abscess without bleeding; F17.203 Nicotine dependence unspecified, with withdrawal